=== PATIENT | female | born 1960 | race Caucasian/White ===

== ENCOUNTER 2018-06-21 08:00 | Outpatient (RCR) | payer OTHER, SELFPAY ==
--- NOTE | 2018-06-08 09:42 | IE_ITS ---
Date: June 08, 2018 Referring: Camelia Crockett NP M.D. Diagnosis: R hip pain P.T. Diagnosis: Difficulty walking, difficulty changing positions, difficulty moving around SUBJECTIVE: History of Present Illness: Pt describes herself as a [employer] company employee.She spends alot of time in her car or sitting at a desk. She states that in the earlier part of this year she started developing some R hip discomfort. She would feel it any time she would hike or, at times, even after a short walk.She started to feel similar sensations through the L hip. It is usually in the front and off to the side. She does not recall any back pain. She states that her pain calms down relatively quick. She has tried yoga and stretching. She is fairly active with skiing, hiking and mountain biking. Occasionally, her feet hurt. Pain Ratin/10. Pain at worst 6/10. Prior Level of Function: Unrestricted. Current Level of Function: Walking limitations and pain after activity, particularly at the R hip. Previous Treatment: Nothing yet for this issue. Social: She lives in [place] with her partner. Comorbidities: History of migraines. Medications: Multi-vitamins and Aleve. Quality of Life: __X__ Good Standardized Measures: LEFS score: __5%__ OBJECTIVE: Posture: In standing pt demonstrates a mild forward head position. No significant postural abnormality other than that worthy of note. Gait: Unremarkable.e No evidence of severe antalgia or ataxia, but a mild reduction in hip extension through the terminal phase of gait bilaterally. Palpation: Slightly tender to palpation along the posterior surface of the greater trochanter and over the anterior superior iliac spine bilaterally. An SFMA top tier assessment was completed. Notable dysfunctional non-painful patterns at cervical spine extension, multi-segmental extension of the trunk, arms down deep squat. ROM: Measurements for this pt are as follows: Cervical extension 50% of available motion with stiffness Cervical rotation limited to 50% of available motion bilaterally with stiffness Cervical flexion 75% of available motion with stiffness Multi-segmental trunk flexion WNL but most motion occurring through the anterior hip Multi-segment extension limited to 50% of available motion Thoracic spine extension and rotation as measured by the lumbar lock test she is limited at about 50% of motion passively Hip flexion 110 degrees motion bilaterally Hip ER 45 degrees bilaterally Hip IR 40 degrees bilaterally Hip abduction 45 degrees bilaterally Knee 0 degrees extension and 135 degrees flexion Ankle ROM WNL Strength: Measurements for this pt are as follows: Core strength 4/5 Hip flexion 4+/5 bilaterally Quads 5/5 Hamstrings 5/5 Dorsiflexion 5/5 Plantar flexion 5/5 Glute medius 4-/5 Glute juan 4/5 bilaterally Neuro: Pt intact to light touch and sensation through LE dermatomes. Motor control appears intact through associated myotomes and pt demonstrates appropriate proprioception and kinesthetic awareness. Special Tests: Josue testing mildly position R and also mildly positive L. Hip scour and hip grind testing negative. Straight leg raise mildly limited by hamstring extensibility. Calf musculature extensibility test limited at the gastroc as testing dorsiflexion with the knee extended and not coming within 10 degrees of terminal dorsiflexion with the knee flexed; this occurs bilaterally. Positive Alin test bilaterally. Treatment: IE and assessment of functional mobility, as well as training in a formal exercise program. Pt demonstrated verbal acknowledgment and technique demonstration. IE: [id number] Direct treatment time: 60 min Total treatment time: 60 min ASSESSMENT: Patient is a 58-year-old female with a history of good physical health, referred for PT services with the diagnosis of R hip pain. Patient presents with clinical signs and symptoms consistent with multi-segmental mobility deficits through the LEs, originating through the hip and anterior chain musculature and stability motor control deficits through the lateral hip musculature, as demonstrated by the following impairment level findings: decreased gluteal strength both laterally and through the glute max, positive Alin test, positive calf muscle extensibility, decreased core strength. Impairments are contributing to the following functional limitations:mild pain with activity and limited walking distance due to pain. Patient is assessed as: __X__ Low 09065 complexity, based on the following: History: (list): Migraines. Examination: (list): Mildly positive Josue test, strength deficits through the gluteals, extensibility issues through the anterior chain with a positive Alin test, positive tightness through the gastroc and calf musculature. Presentation: X Stable Decision-Making: X Low complexity 5 % Disability based on LEFS __X__ Patient requires skilled PT intervention to remediate the above functional limitations to return to: __X__ Premorbid level of function Prognosis: __X__ Good as evidence suggests improvement of functional mobilities with compliance to a detailed HEP tailored to her diagnosis and following through with PT intervention. STG: __2__ weeks. 1. Pt will be independent in HEP both verbally and with ideal technique demonstration. LTG: __6__ weeks. 1. Pt unlimited in her walking up to 2 miles within 25 min of time and no evidence of pain. PLAN: Patient to be seen 1 x per week, for 6 weeks, adjusting frequency of visits per patient symptoms and response to treatment. Treatment to include: X Manual therapy - [id number]: for enhancing muscle extensibility and improving joint arthrokinematics. X Therapeutic exercise - [id number] tactile cues, verbal education and advanced movement correctives for establishing stability and motor control through the core and pelvic girdle, influencing greater symmetry through the muscle strength and stabilization process. X Ultrasound and e-stim available for pain modulation as necessary. The pt will be monitored for compliance to HEP and pt status will be updated accordingly. Thank you for this referral. Please do not hesitate to contact me with any questions or concerns regarding this patient's plan of care. VJ/jina
--- NOTE | 2018-06-21 09:53 | PTTR_ITS ---
DATE: 06/21/18 SUBJECTIVE: I am doing okay for the most part. The issue is still there. OBJECTIVE: Therapeutic procedures ([id number]). * X HEP review: Technique review and corrective modification. * X Provided skilled instruction in proper exercise performance: [] * X Provided skilled manual cues to facilitate proper muscle recruitment and/ or movement pattern: [] * X Other: Patient was guided through intrinsic core stabilization with lower extremity loading patterns. Direct treatment time: 15 minutes of direct patient care.
== END 2018-06-30 23:59 | disposition home or self-care (01) ==
LOC: PT 08:00
PROVIDERS: PCP Nurse Practitioner Family; Referring Provider Nurse Practitioner; Visit Provider Nurse Practitioner
DX: M25.551 Pain in right hip (principal)
CPT/HCPCS: 97110; 97161

== ENCOUNTER 2018-08-03 00:25 | Outpatient (CLI) | payer OTHER, SELFPAY ==
--- NOTE | 2018-08-03 09:55 | DI.MAMMO_ITS ---
SYMPTOM/DIAGNOSIS: SCREENING, Z12.31 MAMMOGRAMS: Mammograms were interpreted according to the usual protocol including computer analysis with CAD system, tomosynthesis and C view imaging. Comparison with prior examinations. Breast density C. No masses or microcalcifications are seen. There is nothing to suggest malignancy. IMPRESSION: Negative mammogram. Routine screening is recommended. Category I. MQSA ASSESSMENT OF FINDINGS: Negative. Category 1. Patient will receive a letter notifying them of these results. Bi-RADS category C. The breasts are heterogeneously dense, which may obscure small masses.
== END 2018-08-03 00:45 ==
PROVIDERS: PCP Nurse Practitioner Family; Visit Provider Nurse Practitioner
DX: Z12.31 Encounter for screening mammogram for malignant neoplasm of breast (principal)
CPT/HCPCS: 77063; 77067

== ENCOUNTER 2019-09-17 01:41 | Outpatient (CLI) | payer OTHER, SELFPAY ==
--- NOTE | 2019-09-17 15:23 | DI.MAMMO_ITS ---
EXAM: MG MAMMO SCREENING CLINICAL HISTORY: screening TECHNIQUE: Mammograms were interpreted according to the usual protocol including computer analysis w [employer] CAD system, tomosynthesis and C-view imaging. COMPARISON: [id number] FINDINGS: The breasts are composed of heterogeneously dense tissue, which may obscure small masses, breast dens ity category C. There are no dominant masses or microcalcifications. There has been no significant i nterval change when compared with the prior images. IMPRESSION: Category 1, negative mammogram. Yearly screening mammography is recommended. BI-RADS Cat 1 - Negative Breast Density - Category C - Heterogeneously dense
== END 2019-09-17 02:01 ==
PROVIDERS: PCP Nurse Practitioner; Visit Provider Nurse Practitioner Family
DX: Z12.31 Encounter for screening mammogram for malignant neoplasm of breast (principal)
CPT/HCPCS: 77063; 77067

== ENCOUNTER 2020-08-11 14:22 | Outpatient (REF) | payer BC, SELFPAY ==
--- NOTE | 2020-08-11 14:00 | PAPFT_PTH ---
PATIENT: Ilana Lund LOC: [facility] U#:[id number] AGE/SX: 60/F ROOM: RE08/11/[address]: CHANEL Bailey : 1960 BED: DIS: 08/11/2020 SPEC #: [id number] RECD: 08/11/20 18:36 STATUS: FELIPE REQ #: [id number] DANICA: 08/11/20 14:[address]: Lashell Irvin DEPT: [facility] Cytology RECD BY: Leti Dunn ENTERED: 08/11/20 18:36 SP TYPE: PAPFT OTHR DR: Camelia Crockett APRN Tissues: 1 - CX/ENDOCX FOR PAP SMEARS Procedures: PAP THIN PREP/UVM Screening HPV DNA PROBE Comments: [id number]
== END 2020-08-11 14:42 ==
LOC: LBN 14:22
PROVIDERS: PCP Nurse Practitioner; Visit Provider Nurse Practitioner Family
DX: Z12.4 Encounter for screening for malignant neoplasm of cervix (principal)
CPT/HCPCS: 88142; 87624

== ENCOUNTER 2021-09-07 00:27 | Outpatient (CLI) | payer BC, SELFPAY ==
--- NOTE | 2021-09-07 12:00 | DI.MAMMO_ITS ---
Exam(s) MAMMO SCREENING EXAM: MAMMO SCREENING CLINICAL HISTORY: screening TECHNIQUE: Bilateral full field digital CC and MLO mammographic images were obtained with 3D tomosyn thesis and utilizing computer aided detection (CAD). COMPARISON: Available for comparison. FINDINGS: Masses/Architectural Distortion: There is a question of new ovoid density in the upper posterior left breast seen on the mediolateral oblique view. Microcalcifications: No suspicious pleomorphic-type are seen. Skin Thickening/Nipple Retraction: None. IMPRESSION: 1. New ovoid density in the posterior superior left breast on the MLO view. 2. Further evaluation with a spot compression view and left breast ultrasound are recommended. BI-RADS Category 0 - Assessment Incomplete: Need additional imaging evaluation Breast Density - Category C - Heterogeneously dense Breast density category C or D implies that the patient has dense breast tissue. Dense breast tissue is very common and is not abnormal but dense breast tissue can make it harder to find cancer on a ma mmogram. Also, dense breast tissue may increase their breast cancer risk. This information about the result of the mammogram report was provided to the patient to raise their awareness. Use this report when you speak with the patient about their risks for breast cancer, which includes their family hist ory. At that time, you may recommend for more screening tests (Ultrasound or MRI) as they might be us eful based on their risk. A negative radiographic report should not delay biopsy if a dominant or clinically suspicious mass is present. Up to ten percent of cancers are not identified on mammography. A negative report may reinforce clinical impression. Adenosis and dense breasts may obscure an underlying neoplasm. False positive reports average 6 to 10%. Patient will receive a letter notifying them of these results.
== END 2021-09-07 00:47 ==
PROVIDERS: PCP Nurse Practitioner; Visit Provider Nurse Practitioner Family
DX: Z12.31 Encounter for screening mammogram for malignant neoplasm of breast (principal); R92.8 Other abnormal and inconclusive findings on diagnostic imaging of breast
CPT/HCPCS: 77063; 77067

== ENCOUNTER 2021-10-06 00:30 | Outpatient (CLI) | payer BC, SELFPAY ==
--- NOTE | 2021-10-06 10:42 | DI.MAMMO_ITS ---
Exam(s) MG MAMMO SCREEN CALL BACK UNI US BREAST LT LIMITED EXAM: MG MAMMO SCREEN CALL BACK UNI and U/S breast LT limited CLINICAL HISTORY: F/U MAMMO, NEW OVOID DENSITY POSTERIOR SUPERIOR LT BREAST. TECHNIQUE: Craniocaudal and mediolateral oblique Full Field Digital Mammography views of the left br east with Computer Aided Diagnosis followed by Tomosynthesis and left breast ultrasound. COMPARISON: Priors available for comparison. FINDINGS: Mammography/Tomosynthesis: Masses/Architectural Distortion: The nodular area of concern does not persist on the additional views . Microcalcifictions: No suspicious pleomorphic-type are seen. Skin Thickening/Nipple Retraction: None. Left breast US: The upper inner and upper outer quadrants of the left breast were evaluated sonograph ically. Echotexture: Normal appearance of the glandular tissue. The 2 o'clock position of the left breast wa s evaluated sonographically with the radiologist present. The area of concern is consistent with nor mal fibroglandular tissue. Shadowing: No suspicious foci. Cyst: None. Solid lesions: None seen. Ductal dilation: None. IMPRESSION: 1. No evidence of malignancy is noted. 2. Unless there is more urgent need, follow-up screening mammography is recommended, as per [place] [employer] guidelines. 3. The findings were discussed with the patient on the date of the examination. BI-RADS Category 1 - Negative Breast Density - Category C - Heterogeneously dense Breast density Category C or D implies that the patient has dense breast tissue. Dense breast tissue can make it harder to find cancer on a mammogram. Dense breast tissue is also associated with an incr eased risk of breast cancer. This information about the result of the mammogram report was provided to the patient to raise their awareness. Use this report when you speak with the patient about their risks for breast cancer, which includes their family history. At that time, you may recommend additional screening tests (Ultrasoun d or MRI) as these tests may add significant information. A negative radiographic report should not delay biopsy if a dominant or clinically suspicious mass is present. Up to ten percent of cancers are not identified on mammography. A negative report may reinforce clinical impression. Adenosis and dense breasts may obscure an underlying neoplasm. False positive reports average 6 to 10%. Patient will receive a letter notifying them of these results.
== END 2021-10-06 00:50 ==
PROVIDERS: PCP Nurse Practitioner; Visit Provider Nurse Practitioner Family
DX: R92.8 Other abnormal and inconclusive findings on diagnostic imaging of breast (principal)
CPT/HCPCS: 76642; 77063; 77067

== ENCOUNTER 2021-10-22 10:53 | Outpatient (REF) | payer BC, SELFPAY ==
[2021-10-22 13:44] LABS: C Diff PCR Negative (Negative)
[2021-10-23 11:41] LABS: Campylobacter PCR Negative (Negative); Salmonella PCR Negative (Negative); Shiga Toxin PCR Negative (Negative); Shigella/Enteroinvasive Ecoli Negative (Negative)
== END 2021-10-22 10:54 | disposition home or self-care (01) ==
LOC: LBN 10:53
PROVIDERS: PCP Nurse Practitioner; Visit Provider Nurse Practitioner
DX: R19.7 Diarrhea, unspecified (principal)
CPT/HCPCS: 87493; 87505; 87177

== ENCOUNTER 2021-10-30 01:06 | Observation (INO) | payer BC, SELFPAY ==
[2021-10-30] VITALS (25 sets, daily range): BP systolic 100–139; BP diastolic 63–78; PULSE 60–81; RESP 14–18; TEMP 36.8–38.1; O2SAT 94–100; BMI 26.9
--- NOTE | 2021-10-30 01:30 | DI.CT_ITS ---
Exam(s) CT ABDOMEN PELVIS W EXAM: CT ABDOMEN PELVIS W INDICATION: diarrhea, abdominal pain, bloody diarrhea. COMPARISON: No exams were available for comparison TECHNIQUE: FINDINGS: CT examination of the abdomen and pelvis was performed with a bolus infusion of 100 cc of Omnipaque 3 50. Images obtained through the lung bases are unremarkable. The liver is unremarkable in appearance. Gallbladder and bile ducts are CT normal. Pancreas appears normal. Spleen is unremarkable in appearance. Adrenals appear normal. The kidneys are unremarkable with no evidence of hydronephrosis, nephrolithiasis, or renal mass.. Ur inary bladder unremarkable. Abdominal aorta is of normal diameter and no major vascular abnormality is seen. No abdominal wall hernia. No abdominal or pelvic adenopathy. [employer] structures appear intact. Appendix is not specifically identified but there is no evidence of appendicitis. There is no eviden ce of diverticulitis. Note is made of marked wall thickening of the distal transverse and descending colon consistent with colitis. No evidence of perforation or obstruction. Slight pericolonic fat e osmin may be present. IMPRESSION: The appearance is consistent with colitis involving distal transverse and descending colon. No other specific findings. RADIATION DOSE DELIVERED: 808.25mGy.cm Total DLP 808.25mGy.cm Total DLP CTDIvol RADIATION OPTIMIZATION: All CT scans at this facility use at least one of these dose optimization te chniques: automated exposure control; mA and/or kV adjustment per patient size (includes targeted exa ms where dose is matched to clinical indication); or iterative reconstruction.
[2021-10-30] MEDS: Normal Saline 1,000 ML 1000 ML IV (01:35)
[2021-10-30 01:36] LABS: Abs Immature Grans 0.03 10^3/uL (0.0-0.06); Absolute Basophil Count 0.04 10^3/uL (0.0-0.2); Absolute Eosinophil Count 0.21 10^3/uL (0.0-0.7); Absolute Lymphocyte Count 2.61 10^3/uL (1.2-3.4); Absolute Monocyte Count 0.55 10^3/uL (0.1-0.8); Absolute Neutrophil Count 8.26 10^3/uL (1.2-6.7); Basophils % 0.3; Eosinophils % 1.8; HCT 42.3 % (36.0-46.0); Immature Grans % 0.3; Lymphocytes % 22.3; MCH 31.3 pg (27.0-33.0); MCHC 33.1 % (32.0-36.0); MCV 94.6 fL (80-95); MPV 9.2 fL (8.0-11.0); Monocytes % 4.7; Neutrophils % 70.6; Nucleated RBC 0 %; Platelet Count 324 10^3/uL (130-400); RBC 4.47 10^6/uL (3.93-5.22); RDW-SD 45.3 fL
[2021-10-30 01:37] LABS: Lactate 0.9 mmol/L (0.6-1.4)
[2021-10-30] MEDS: Ondansetron 4 MG/2 ML VIAL (01:40)
[2021-10-30 01:51] LABS: Lipase 105 U/L (73-393)
--- NOTE | 2021-10-30 01:52 | W.ED.GENAD ---
Discharge Plan Disposition Patient Disposition: [facility] INPATIENT Condition: Improving Discharge Details Chief Complaint: Abd Prob Clinical Impression: Colitis, Hematochezia Primary Care Provider: Camelia Crockett ED Provider: Guero Meadows Home Meds and New Rx's Prescriptions: No Action cholecalciferol (vitamin D3) 10 mcg (400 unit) capsule 400 unit PO DAILY RF: 0 mhtacwjhyg-aqzoful-tuzgmuyz 50-325-40 mg capsule 1 cap PO DAILY PRN (Reason: pain) RF: 0 zinc 50 mg tablet 50 mg PO DAILY RF: 0 B-complex with vitamin C Tablet 1 tab PO DAILY RF: 0 estradiol 0.5 mg tablet 0.5 mg PO DAILY Qty: 90 RF: 3 progesterone micronized [Prometrium] 100 mg capsule 100 mg PO DAILY Qty: 90 RF: 3 magnesium citrate 100 mg tablet 400 mg PO HS RF: 0 naproxen sodium [Aleve] 220 mg capsule 220 mg PO PRN RF: 0 lorazepam 0.5 mg tablet 0.5 mg PO DAILY PRN PRN (Reason: anxiety for flights) RF: 0 Medical Decision Making 61-year-old female with a past medical history of myofascial pain syndrome, sinusitis, presents today for bloody diarrhea. Patient states that she has had consistent watery diarrhea for this entire month. Patient states that she will use fiber and other supplements and the most this does this transition the watery diarrhea to a pudding or milkshake-like consistency. She has had a notable outpatient work-up for stool studies which demonstrates negative Shiga toxin, negative ova and parasite, negative C. difficile, no significant abnormalities to speak of. She was scheduled to follow-up closely with her PCP coming week, however this evening she developed severe cramping much worse than anything she had had previously, and then subsequently had a notable amount of bright red bloody stool. She suspects it was about a quarter of a cup of blood in the toilet. She denies any history of this happening in the past. She does admit to having a family member with a history of Crohn's disease, but she denies any other personal history of GI problems in the past. Patient denies any spicy foods. She denies any blood thinner use. No other complaints at this time. Abdominal pain is described as achy and generalized throughout. She denies cough, fever or chills. Physical exam demonstrates mild tenderness throughout the abdomen, no focality physically. Rectal exam unremarkable. Differential at this time is highest for mild colitis. Infectious colitis would certainly be less likely given the notable work-up already in the longevity of her symptoms. Inflammatory colitis is certainly of concern though. We will get a CAT scan, rehydrate, treat her pain, monitor closely and reassess. 3:31 AM Laboratory work-up is returned stable, will notably elevated at 11.7, hemoglobin stable. Electrolytes normal lactate normal. Patient has not had a stool/bowel movement here. Lipase normal. Patient still has mild to moderate pain, but slightly improved with the morphine. CT scan shows evidence of colitis in the distal transverse colon. On further discussion the patient's history patient does admit to travel to the [facility] within the past month however this occurred over a week after when her symptoms began, additionally she also admits that her mother has had diarrhea for multiple months, with multiple negative work-ups, they are uncertain as to the etiology for what she has also. She did recently spend time with her mother the past few weeks. At this time with the amount of blood that the patient had with her previous bowel movement, and the evidence of colitis we will start her on Cipro/Flagyl out of concern for potential infectious component. I discussed the case with hospitalist , he agrees with the assessment and plan. I will place admission orders on his behalf. I have extensively reviewed the treatment plan with the patient. I have addressed all patient concerns at this time. I have also discussed the plan with the admitting physician and they agree with the current assessment and plan and have agreed to assume responsibility for the patient. All parties demonstrate verbal understanding and agreement with our assessment and plan at this time. The documentation in this chart was dictated using [employer] dictation software. Please excuse any dictation errors. FINDINGS: Liver: Normal. No mass. Gallbladder and bile ducts: Normal. No calcified stones. No ductal dilation. Pancreas: Normal. No ductal dilation. Spleen: Normal. No splenomegaly. Adrenal glands: Normal. No mass. Kidneys and ureters: Normal. No hydronephrosis. Stomach and bowel: Infectious or inflammatory colitis of the distal transverse colon. Appendix: No evidence of appendicitis. Intraperitoneal space: Unremarkable. No free air. No significant fluid collection. Vasculature: Unremarkable. No abdominal aortic aneurysm. Lymph nodes: Unremarkable. No enlarged lymph nodes. Urinary bladder: Unremarkable as visualized. Reproductive: Unremarkable as visualized. Bones/joints: Unremarkable. No acute fracture. Soft tissues: Unremarkable. IMPRESSION: Infectious or inflammatory colitis of the distal transverse colon. Thank you for allowing us to participate in the care of your patient. Dictated and Authenticated by: Monico Underwood MD 10/30/2021 2:54 AM Eastern Time ([place] & [place] HPI General Date/Time Provider Initiated Documentation: 10/30/21 01:09. HPI Narrative: 61-year-old female with a past medical history of myofascial pain syndrome, sinusitis, presents today for bloody diarrhea. Patient states that she has had consistent watery diarrhea for this entire month. Patient states that she will use fiber and other supplements and the most this does this transition the watery diarrhea to a pudding or milkshake-like consistency. She has had a notable outpatient work-up for stool studies which demonstrates negative Shiga toxin, negative ova and parasite, negative C. difficile, no significant abnormalities to speak of. She was scheduled to follow-up closely with her PCP coming week, however this evening she developed severe cramping much worse than anything she had had previously, and then subsequently had a notable amount of bright red bloody stool. She suspects it was about a quarter of a cup of blood in the toilet. She denies any history of this happening in the past. She does admit to having a family member with a history of Crohn's disease, but she denies any other personal history of GI problems in the past. Patient denies any spicy foods. She denies any blood thinner use. No other complaints at this time. Abdominal pain is described as achy and generalized throughout. She denies cough, fever or chills. Related Data Home Medications Medication Instructions Recorded Confirmed magnesium citrate 100 mg tablet 400 mg PO HS 01/04/19 10/30/21 naproxen sodium 220 mg capsule 220 mg PO PRN cap 06/25/19 10/30/21 B-complex with vitamin C 1 tab PO DAILY 08/13/21 10/30/21 tjwgszknup-qwtuyrb-ednnjupw 50 1 cap PO DAILY PRN tab-cap 08/13/21 10/30/21 mg-325 mg-40 mg capsule cholecalciferol (vitamin D3) 10 400 unit PO DAILY 08/13/21 10/30/21 mcg (400 unit) capsule estradiol 0.5 mg tablet 0.5 mg PO DAILY #90 tab 08/13/21 10/30/21 progesterone micronized 100 mg 100 mg PO DAILY #90 cap 08/13/21 10/30/21 capsule zinc 50 mg tablet 50 mg PO DAILY 08/13/21 10/30/21 lorazepam 0.5 mg PO DAILY PRN PRN 10/30/21 10/30/21 Previous Rx's Medication Instructions Recorded estradiol 0.5 mg tablet 0.5 mg PO DAILY #90 tab 08/13/21 progesterone micronized 100 mg 100 mg PO DAILY #90 cap 08/13/21 capsule Allergies Allergy/AdvReac Type Severity Reaction Status Date / Time No Known Drug Allergies Allergy Verified 10/30/21 01:50 General Stated Complaint: Abd Prob MIMI: 2 Review of Systems All systems reviewed & are unremarkable except as noted in HPI and below PFSH All Active Problems (Updated 10/30/21 @ 03:34 by Guero Meadows DO) Colitis (Acute) Hematochezia (Acute) Tinnitus, bilateral (Acute) Routine medical exam (Acute) Low back pain (Acute) Constipation (Acute) Sinusitis (Acute) Bilateral bunions (Chronic) Myofascial pain syndrome (Acute) B/L trapezius Headache, migraine (Acute) With menses (twice per month) & with aura (sparkly lights) Cervical spinal stenosis (Acute) Surgical History c-sections 2 Family History Father Substance abuse Alcoholism Osteoarthritis Sister Crohn's disease Half-Brother Substance abuse Alcoholism Mental disorder Depression Maternal Grandfather Substance abuse Alcoholism CAD (coronary artery disease) Maternal Grandmother Neoplasm Liver Mother No problems noted. Half-Brother No problems noted. 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 [employer] What is your relationship status?: living with partner Panel score (0-1 are the most socially isolated patients): 1 What type of physical activity do you participate in: regular exercise Duration: 45-60 minutes/day Frequency: 3-4 times per week Seatbelt use: always Working smoke detector in home: Yes Fire extinguisher in home: Yes Carbon monox detector in home: Yes Do you feel safe at home: Yes Do you feel safe in your relationship?: Yes History History 2 Para Hx # Term Pregnancies 2 Multiple births Hx # Pregnancies Ectopic pregnancies AB induced Hx Number of Living Children AB spontaneous Exam Narrative Exam Narrative: 1.Const: Well-nourished, Well-developed, appearing stated age 2.Eyes: PERRL, no conjunctival injection, and symmetrical lids. 3.ENT: Atraumatic external nose and ears. Moist MM. Neck: Symmetric, trachea midline, No thyromegaly. 4.CVS: +S1/S2, No murmurs or gallops. Peripheral pulses 2+ and equal in all extremities. Brisk capillary refill in all extremities. 5.RESP: Unlabored respiratory effort. Clear to auscultation bilaterally. No wheezes rales or rhonchi 6.GI: Soft, nondistended, no guarding or rebound. Mild generalized tenderness throughout with no focality. Rectal exam demonstrates a few small skin tags and hemorrhoids, no active bleeding hemorrhoids. Exam was performed with female nurse Selene at bedside. 7.MSK: Normocephalic/Atraumatic, Extremities w/o deformity or ttp No cyanosis or clubbing, Normal movement of all extremities 8.Skin: Warm, Dry. No rashes or lesions. 9.Neuro: disability counselor II-XII grossly intact. Sensation grossly intact, no focal neurologic deficits. 10.Psych: (AAO) x3. Appropriate mood and affect Course Vital Signs Vital signs: Vital Signs Temperature 37.3 C 10/30/21 01:12 Pulse 64 10/30/21 01:12 Respiratory Rate 18 10/30/21 01:12 Blood Pressure 139/78 10/30/21 01:12 Pulse Oximetry 100 10/30/21 01:12 Temperature 37.3 C 10/30/21 01:12 Temperature Source Skin 10/30/21 01:12 Pulse 66 10/30/21 01:48 Respiratory Rate 14 10/30/21 01:48 Blood Pressure 121/73 10/30/21 01:48 Blood Pressure Position Supine 10/30/21 01:12 Pulse Oximetry 99 10/30/21 01:48 Oxygen Delivery Method Room Air 10/30/21 01:48 Oxygen Flow Rate 0 10/30/21 01:48 Pain Level 8 10/30/21 01:48 Lab/Test Results Lab/Test Results: Laboratory Tests Range/Units 10/30/21 10/30/21 01:30 01:30 WBC (4.4-10.8) 10^3/uL 11.70 H RBC (3.93-5.22) 10^6/uL 4.47 Hgb (11.2-15.7) g/dL 14.0 Hct (36.0-46.0) % 42.3 MCV (80-95) fL 94.6 MCH (27.0-33.0) pg 31.3 MCHC (32.0-36.0) % 33.1 RDW (11.7-14.6) % 13.0 Plt Count (130-400) 10^3/uL 324 MPV (8.0-11.0) fL 9.2 Immature Gran % 0.3 Neutrophils % 70.6 Lymphocytes % 22.3 Monocytes % 4.7 Eosinophils % 1.8 Basophils % 0.3 Nucleated RBC % % 0 Absolute Neutrophils (1.2-6.7) 10^3/uL 8.26 H Absolute Lymphocytes (1.2-3.4) 10^3/uL 2.61 Absolute Monocytes (0.1-0.8) 10^3/uL 0.55 Absolute Eosinophils (0.0-0.7) 10^3/uL 0.21 Absolute Basophils (0.0-0.2) 10^3/uL 0.04 VBG Lactate (0.6-1.4) mmol/L 0.9
[2021-10-30 01:56] LABS: ALT 31 U/L (14-59); AST 19 U/L (15-37); Albumin 3.7 g/dL (3.4-5.0); Alkaline Phosphatase 62 U/L (46-116); Anion Gap 7.5 mmol/L (3-11); BUN 15 mg/dL (7-18); Bilirubin, Total 0.2 mg/dL (0.2-1.0); CO2 30.5 mmol/L (21.0-32.0); CREATININE 0.8 mg/dL (0.55-1.02); Calcium 9.1 mg/dL (8.5-10.1); Chloride 103 mmol/L (98-107); Glucose 118 mg/dL (74-106); PTT Activated 20.7 sec (21.0-27.5); Potassium 3.8 mmol/L (3.5-5.1); Prothrombin Time 9.9 sec (9.3-11.0); Sodium 141 mmol/L (136-145); Total Protein 7.9 g/dL (6.4-8.2)
[2021-10-30] MEDS: Omnipaque 350 MG/ML 100 ML BTL IJ (02:18)
--- NOTE | 2021-10-30 02:55 | DI.VRAD_ITS ---
PROCEDURE INFORMATION: Exam: CT Abdomen And Pelvis With Contrast Exam date and time: 10/30/2021 1:35 AM Age: 61 years old Clinical indication: Other: Diarrhea, abdominal pain, bloody diarrhea TECHNIQUE: Imaging protocol: Computed tomography of the abdomen and pelvis with contrast. COMPARISON: No relevant prior studies available. FINDINGS: Liver: Normal. No mass. Gallbladder and bile ducts: Normal. No calcified stones. No ductal dilation. Pancreas: Normal. No ductal dilation. Spleen: Normal. No splenomegaly. Adrenal glands: Normal. No mass. Kidneys and ureters: Normal. No hydronephrosis. Stomach and bowel: Infectious or inflammatory colitis of the distal transverse colon. Appendix: No evidence of appendicitis. Intraperitoneal space: Unremarkable. No free air. No significant fluid collection. Vasculature: Unremarkable. No abdominal aortic aneurysm. Lymph nodes: Unremarkable. No enlarged lymph nodes. Urinary bladder: Unremarkable as visualized. Reproductive: Unremarkable as visualized. Bones/joints: Unremarkable. No acute fracture. Soft tissues: Unremarkable. IMPRESSION: Infectious or inflammatory colitis of the distal transverse colon. Dictated and Authenticated by: Monico Underwood MD. Ordering:ALEXANDR Jack MD
[2021-10-30 03:42] LABS: Source Nasal/Nares
[2021-10-30] MEDS: CIPROFLOXACIN 400 MG/200 ML BAG 200 MG IVPB ×2 (03:42→15:38)
[2021-10-30] MEDS: Normal Saline 1,000 ML 150 ML IV (04:55)
[2021-10-30] MEDS: metroNIDAZOLE 500 MG/100 ML BAG 100 MG IVPB ×3 (04:58→21:30)
--- NOTE | 2021-10-30 08:34 | PDOC.CMIN ---
- If Service Date Differs Date of service: 10/30/21 Time of Service: 08:34 Care Management Initial Assess REASON FOR HOSPITALIZATION:: Colitis PAST MEDICAL HISTORY/PAST SURGICAL HISTORY:: All Active Problems (Updated 10/30/21 @ 03:34 by Guero Meadows DO). Colitis (Acute). Hematochezia (Acute). Tinnitus, bilateral (Acute). Routine medical exam (Acute). Low back pain (Acute). Constipation (Acute). Sinusitis (Acute). Bilateral bunions (Chronic). Myofascial pain syndrome (Acute). B/L trapezius. Headache, migraine (Acute). With menses (twice per month) & with aura (sparkly lights). Cervical spinal stenosis (Acute). Surgical History . c-sections 2 PREVIOUS FUNCTIONAL STATUS/SOCIAL/FAMILY SUPPORTS:: Ilana lives in [place] with her long time partner Eladio. She has 2 children, a son who lives in [place] and a daughter who lives on the [facility]. 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 She is currently working on memoirs and personal essays. Ilana is very active and hikes, bikes, skis and does personal training via Zoom several times a week. She does not receive any community services. CURRENT FUNCTIONAL STATUS:: Ilana wass lying in bed when CM met with her. She was pleasant and agreeable to conversation but was not very talkative. She admitted that she was not feeling well as she had a headache and had not had much sleep. Ilana does not feel that she will need any services at discharge. ADVANCE DIRECTIVES:: none on file Has patient been provided with info about the portal/API?: Yes Did the patient sign up for the portal?: Yes (previously) CODE STATUS:: Full Code INSURANCE COVERAGE / FINANCIAL ISSUES:: DOMONIQUE OSORIO CURRENT HOME/COMMUNITY SERVICES/EQUIPMENT:: none PRIMARY CARE PHYSICIAN:: Camelia Crockett POTENTIAL DISCHARGE NEEDS:: Follow up with PCP and plan of care PATIENT/FAMILY EDUCATION NEEDS:: Review of discharge instructions, limitations, diet, medications, follow up plan, Ask Me Three TRANSPORTATION:: via private vehicle with friends/family PLAN:: Ilana will ld be discharged home with no new services. She will follow up with her PCP and plan of care and transport with family. CM will support Ilana and her discharge needs.
--- NOTE | 2021-10-30 10:32 | HPE_ITS ---
Date of service: 10/30/21 Time of Service: 10:32 Assessment and Plan Assessment and plan (1) Colitis: Status: Acute Assessment and plan: High suspicion for inflammatory bowel disease given the duration of her diarrhea and recent negative stool work-up for infectious causes. For now we will continue with IV Flagyl and ciprofloxacin IV fluids and antiemetics and keep her n.p.o. and consult with surgical services regarding performing a colonoscopy to obtain a biopsy. (2) Hematochezia: Status: Acute Assessment and plan: As above History of Present Illness History of Present Illness Chief Complaint: Diarrhea, abdominal pain, bloody bowel movement Narrative: 61-year-old female with past medical history of migraine headaches, cervical spinal stenosis, no previous GI problems presented to emergency department with 1 month history of watery diarrhea. Says she will have up to 6 bowel movements a day stools will be watery with some chunks of stool. She has been trying fiber and other supplements to thicken her bowel movements and at times after taking Imodium stools will thicken up to a pudding consistency. She has not noticed any melena nor any hematochezia until yesterday evening. Started with crampy abdominal pain yesterday with radiation into her back and lower abdomen has had nausea but no emesis. She has had waterbrash symptoms. Yesterday evening she had a bowel movement with bright red blood and a watery diarrhea. She has had no high fevers she thought the last few days she has had a low-grade temperature 99-100 but without rigors. She and her partner did travel out of the country to the [facility] to [place] from October 10 through October 20, 2021 however her diarrhea had preceded this. Her partner has had no diarrhea symptoms. Her past history is pertinent for previous C-scope 10 years ago which was reportedly normal. Her family history is pertinent for Crohn's disease in her half-sister. Patient's mother whom she shares with her half-sister has also had some stomach and bowel issues over the years but never had a work-up for inflammatory bowel disease. Patient herself is a non-smoker does drink 2 to 4 glasses of wine or beer per day. No history of alcohol withdrawal. Patient had a recent infectious work-up as an outpatient on October 22, 2021 that includes stool studies for C. difficile as well as bacterial pathogens including Campylobacter Salmonella and Shigella as well as stool for ova and par asites. These were all negative. Evaluation in the ER last night include a CBC that showed an elevated white count of 11,700 but no anemia. CMP was unremarkable except for a mildly elevated glucose of 118. Lipase was normal at 105. CRP and procalcitonin were not performed but have been added to this morning's labs. Coagulation studies were normal. Blood lactate was normal at 0.9. Imaging included CT scan of the abdomen pelvis which demonstrated suggestion of infectious or inflammatory colitis of the distal transverse colon but no evidence for appendicitis. Gallbladder and bile ducts were normal. Pancreas and spleen and adrenal glands and kidneys were also normal. Patient was started on IV fluids and started on ciprofloxacin and Flagyl and repeat stool studies for infectious etiology were ordered. Patient is now admitted for further work-up of her transverse colitis. Surgical consultation will be obtained for consideration for colonoscopy to rule out inflammatory bowel disease. Review of Systems All systems reviewed & are unremarkable except as noted in HPI and below Gastrointestinal Gastrointestinal: Reports abdominal pain, Denies melena, Reports hematochezia, Reports cramping, Reports early satiety, Reports diarrhea and Reports nausea PFSH All Active Problems (Updated 10/30/21 @ 11:14 by Ismael Coello) Colitis (Acute) Hematochezia (Acute) Tinnitus, bilateral (Acute) Myofascial pain syndrome (Acute) B/L trapezius Headache, migraine (Acute) With menses (twice per month) & with aura (sparkly lights) Cervical spinal stenosis (Acute) Medical History (Updated 10/30/21 @ 11:14 by Ismael Coello) Bilateral bunions Constipation Low back pain Sinusitis Surgical History c-sections 2 Family History Father Substance abuse Alcoholism Osteoarthritis Sister Crohn's disease Half-Brother Substance abuse Alcoholism Mental disorder Depression Maternal Grandfather Substance abuse Alcoholism CAD (coronary artery disease) Maternal Grandmother Neoplasm Liver Mother No problems noted. Half-Brother No problems noted. 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 [employer] What is your relationship status?: living with partner Panel score (0-1 are the most socially isolated patients): 1 What type of physical activity do you participate in: regular exercise Duration: 45-60 minutes/day Frequency: 3-4 times per week Seatbelt use: always Working smoke detector in home: Yes Fire extinguisher in home: Yes Carbon monox detector in home: Yes Do you feel safe at home: Yes Do you feel safe in your relationship?: Yes History History 2 Para Hx # Term Pregnancies 2 Multiple births Hx # Pregnancies Ectopic pregnancies AB induced Hx Number of Living Children AB spontaneous Meds Allergies and Home Medications Allergies Allergy/AdvReac Type Severity Reaction Status Date / Time No Known Drug Allergies Allergy Verified 10/30/21 01:50 Home Medications Medication Instructions Recorded Confirmed Type magnesium citrate 100 mg tablet 400 mg PO HS 01/04/19 10/30/21 History naproxen sodium 220 mg capsule 220 mg PO PRN cap 06/25/19 10/30/21 History B-complex with vitamin C 1 tab PO DAILY 08/13/21 10/30/21 History vozubxbghc-[id number]-[id number] 50 1 cap PO DAILY PRN tab-cap 08/13/21 10/30/21 History mg-325 mg-40 mg capsule cholecalciferol (vitamin D3) 10 400 unit PO DAILY 08/13/21 10/30/21 History mcg (400 unit) capsule estradiol 0.5 mg tablet 0.5 mg PO DAILY #90 tab 08/13/21 10/30/21 Rx progesterone micronized 100 mg 100 mg PO DAILY #90 cap 08/13/21 10/30/21 Rx capsule zinc 50 mg tablet 50 mg PO DAILY 08/13/21 10/30/21 History lorazepam 0.5 mg PO DAILY PRN PRN 10/30/21 10/30/21 History Exam Narrative Exam Narrative: Middle-aged white female lying in bed appears to be uncomfortable but not in any distress. HEENT is remarkable for dry mucous membranes. Neck supple nontender no JVD normal carotid pulses no bruits no thyromegaly Lungs are clear to auscultation Heart is regular rate and rhythm without murmur rub or gallop Abdomen slightly distended with active bowel sounds in all 4 quadrants with epigastric tenderness along with rebound tenderness and guarding. No palpable masses no organomegaly Extremities without peripheral cyanosis or edema Neuro exam grossly intact no focal motor or sensory deficits. Rectal urinary exam deferred Results Labs Result diagrams: 10/30/21 01:30 10/30/21 01:30 Labs: Laboratory Results - last 24 hr 10/30/21 10/30/21 10/30/21 01:30 01:30 01:30 WBC 11.70 H RBC 4.47 Hgb 14.0 Hct 42.3 MCV 94.6 MCH 31.3 MCHC 33.1 RDW 13.0 Plt Count 324 MPV 9.2 Immature Gran % 0.3 Neutrophils % 70.6 Lymphocytes % 22.3 Monocytes % 4.7 Eosinophils % 1.8 Basophils % 0.3 Nucleated RBC % 0 Absolute Neutrophils 8.26 H Absolute Lymphocytes 2.61 Absolute Monocytes 0.55 Absolute Eosinophils 0.21 Absolute Basophils 0.04 PT INR APTT VBG Lactate 0.9 Sodium 141 Potassium 3.8 Chloride 103 Carbon Dioxide 30.5 Anion Gap 7.5 BUN 15 Creatinine 0.8 Estimated GFR/1.73 m2 >= 60.00 Glucose 118 H Calcium 9.1 Total Bilirubin 0.2 AST 19 ALT 31 Alkaline Phosphatase 62 Total Protein 7.9 Albumin 3.7 Lipase COVID-19 Source 10/30/21 10/30/21 10/30/21 01:30 01:30 03:40 WBC RBC Hgb Hct MCV MCH MCHC RDW Plt Count MPV Immature Gran % Neutrophils % Lymphocytes % Monocytes % Eosinophils % Basophils % Nucleated RBC % Absolute Neutrophils Absolute Lymphocytes Absolute Monocytes Absolute Eosinophils Absolute Basophils PT 9.9 INR 1.0 APTT 20.7 L VBG Lactate Sodium Potassium Chloride Carbon Dioxide Anion Gap BUN Creatinine Estimated GFR/1.73 m2 Glucose Calcium Total Bilirubin AST ALT Alkaline Phosphatase Total Protein Albumin Lipase 105 COVID-19 Source Nasal/Nares Last Vital Signs Temp 36.8 C 10/30/21 09:02 Pulse 70 10/30/21 09:02 Resp 16 10/30/21 09:02 BP 100/63 10/30/21 09:02 Pulse Ox 96 10/30/21 09:02
[2021-10-30] MEDS: Lactated Ringers 1,000 ML 150 ML IV ×2 (11:32→20:15)
[2021-10-30 12:20] LABS: C-Reactive Protein 2.11 mg/dL (0.0-0.3)
--- NOTE | 2021-10-30 12:51 | W.SURGCON ---
Date of service: 10/30/21 Time of Service: 12:52 Assessment and Plan Assessment and plan (1) Colitis: Status: Acute (2) Hematochezia: Status: Acute Assessment and plan: -cultures pd CRP ~2 family hx of Crohn's -Antibiotic started. She does not feel much better. pt needs bx for tissue confirmation results of CT reviewed IMPRESSION: Infectious or inflammatory colitis of the distal transverse colon. Informed consent is obtained for the procedural (explained in simple layman's terms that the pt and/or family could understand) explaining risks vs benefits and alternatives to the procedure and consequences if we do not do the procedure and need/rational for the procedure. Risks include but are not limited to: bleeding, infection, perforation of esophagus, stomach, colon, small intestines, bronchus or trachea, or PTX. This would necessitate emergency surgery to repair the damage w/ possible ostomy; and other associated complications w/ the required surgery. Also complications of anesthesia including aspiration, DE/CVA/. Plan on prep colonoscopy and biopsy today. 60 minutes spent with patient today in consultation History of Present Illness Narrative: I did review and discussed with Dr. Salvador. In summary the patient had diarrhea and abdominal pain pretty much continuously since . She has never had anything like this before. Yesterday the pain became unbearable, and she is also started having bright red bloody stools. CT and lab reviewed. She also had a work-up by her PCP including a which was negative-including stool cultures and C. difficile. She was out of the country in the [place] for the third week in September. Her symptoms started after and continued while she was on vacation. She was using Imodium, fiber, probiotics to be able to enjoy her vacation. She has chronic neck pain and migraine headaches. Interestingly she did take a Medrol Dosepak the second week in September. This did not prove her symptoms. Prior to the past August she has never had anything like this before. She did have a colonoscopy at age 52 that was normal. Her mother has a nervous stomach and chronic GI problems including diarrhea. Her sister does have a diagnosis of Crohn's. Results of CT reviewed. She describes the pain in the upper abdomen. Appears to be over the course of the transverse colon. She has not noted any rashes or joint pains. Her neck is not been worse than usual. Has never been diagnosed with RA or . Consults Consult date: 10/30/21 Requesting physician: Ismael Coello Review of Systems All systems reviewed & are unremarkable except as noted in HPI and below PFSH All Active Problems Colitis (Acute) Hematochezia (Acute) Tinnitus, bilateral (Acute) Myofascial pain syndrome (Acute) B/L trapezius Headache, migraine (Acute) With menses (twice per month) & with aura (sparkly lights) Cervical spinal stenosis (Acute) Medical History Bilateral bunions Constipation Low back pain Sinusitis Surgical History c-sections 2 Family History Father Substance abuse Alcoholism Osteoarthritis Sister Crohn's disease Half-Brother Substance abuse Alcoholism Mental disorder Depression Maternal Grandfather Substance abuse Alcoholism CAD (coronary artery disease) Maternal Grandmother Neoplasm Liver Mother No problems noted. Half-Brother No problems noted. 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 [employer] What is your relationship status?: living with partner Panel score (0-1 are the most socially isolated patients): 1 What type of physical activity do you participate in: regular exercise Duration: 45-60 minutes/day Frequency: 3-4 times per week Seatbelt use: always Working smoke detector in home: Yes Fire extinguisher in home: Yes Carbon monox detector in home: Yes Do you feel safe at home: Yes Do you feel safe in your relationship?: Yes History History 2 Para Hx # Term Pregnancies 2 Multiple births Hx # Pregnancies Ectopic pregnancies AB induced Hx Number of Living Children AB spontaneous Exam HENMT Other: Complains of mild headache today. She is a heavy caffeine user and is not had any cough today. Pupils are equal and reactive to light. No jaundice. Mucous membranes are moist. Mild neck pain. Resp Effort & Inspection: normal respiratory effort and able to speak in complete sentences Auscultation: clear to auscultation bilaterally Cardio Rate: regular rate Rhythm: regular rhythm GI Palpation: soft, no hernias, tender (Mid upper abdomen bilaterally. Along the course of the transverse colon) and No ascites Auscultation: hypoactive bowel sounds Other: Rectal exam was not done Skin General skin exam: no rashes or lesions noted Results Last Vital Signs Temp 36.8 C 10/30/21 09:02 Pulse 70 10/30/21 09:02 Resp 16 10/30/21 09:02 BP 100/63 10/30/21 09:02 Pulse Ox 96 10/30/21 09:02 Labs Result diagrams: 10/30/21 01:30 10/30/21 01:30 Labs: Laboratory Results - last 24 hr 10/30/21 10/30/21 10/30/21 01:30 01:30 01:30 WBC 11.70 H RBC 4.47 Hgb 14.0 Hct 42.3 MCV 94.6 MCH 31.3 MCHC 33.1 RDW 13.0 Plt Count 324 MPV 9.2 Immature Gran % 0.3 Neutrophils % 70.6 Lymphocytes % 22.3 Monocytes % 4.7 Eosinophils % 1.8 Basophils % 0.3 Nucleated RBC % 0 Absolute Neutrophils 8.26 H Absolute Lymphocytes 2.61 Absolute Monocytes 0.55 Absolute Eosinophils 0.21 Absolute Basophils 0.04 PT INR APTT VBG Lactate 0.9 Sodium 141 Potassium 3.8 Chloride 103 Carbon Dioxide 30.5 Anion Gap 7.5 BUN 15 Creatinine 0.8 Estimated GFR/1.73 m2 >= 60.00 Glucose 118 H Calcium 9.1 Total Bilirubin 0.2 AST 19 ALT 31 Alkaline Phosphatase 62 C-Reactive Protein Total Protein 7.9 Albumin 3.7 Lipase COVID-19 Source 10/30/21 10/30/21 10/30/21 01:30 01:30 03:40 WBC RBC Hgb Hct MCV MCH MCHC RDW Plt Count MPV Immature Gran % Neutrophils % Lymphocytes % Monocytes % Eosinophils % Basophils % Nucleated RBC % Absolute Neutrophils Absolute Lymphocytes Absolute Monocytes Absolute Eosinophils Absolute Basophils PT 9.9 INR 1.0 APTT 20.7 L VBG Lactate Sodium Potassium Chloride Carbon Dioxide Anion Gap BUN Creatinine Estimated GFR/1.73 m2 Glucose Calcium Total Bilirubin AST ALT Alkaline Phosphatase C-Reactive Protein Total Protein Albumin Lipase 105 COVID-19 Source Nasal/Nares 10/30/21 11:55 WBC RBC Hgb Hct MCV MCH MCHC RDW Plt Count MPV Immature Gran % Neutrophils % Lymphocytes % Monocytes % Eosinophils % Basophils % Nucleated RBC % Absolute Neutrophils Absolute Lymphocytes Absolute Monocytes Absolute Eosinophils Absolute Basophils PT INR APTT VBG Lactate Sodium Potassium Chloride Carbon Dioxide Anion Gap BUN Creatinine Estimated GFR/1.73 m2 Glucose Calcium Total Bilirubin AST ALT Alkaline Phosphatase C-Reactive Protein 2.11 H Total Protein Albumin Lipase COVID-19 Source
[2021-10-30 13:06] LABS: Procalcitonin < 0.1 ng/mL
[2021-10-30 13:09] LABS: COVID-19 PCR Negative (Negative)
--- NOTE | 2021-10-30 14:26 | W.ANESPRE ---
General Info Date of Service Date Performed: 10/30/21 Height: 5 ft 6 in Weight: 75.75 kg Body Mass Index (BMI): 26.9 Surgical Procedure: Operation Date: 10/30/21 14:25 Proposed Procedures Side Surgeon p Flexible Sigmoidoscopy Not Applicable Consuelo Amato, DO Meds Allergies and Home Medications Allergies Allergy/AdvReac Type Severity Reaction Status Date / Time No Known Drug Allergies Allergy Verified 10/30/21 01:50 Home Medication Medication Instructions Recorded magnesium citrate 100 mg tablet 400 mg PO HS 01/04/19 naproxen sodium 220 mg capsule 220 mg PO PRN cap 06/25/19 B-complex with vitamin C 1 tab PO DAILY 08/13/21 [id number]-[id number]-[id number] 50 1 cap PO DAILY PRN tab-cap 08/13/21 mg-325 mg-40 mg capsule cholecalciferol (vitamin D3) 10 400 unit PO DAILY 08/13/21 mcg (400 unit) capsule estradiol 0.5 mg tablet 0.5 mg PO DAILY #90 tab 08/13/21 progesterone micronized 100 mg 100 mg PO DAILY #90 cap 08/13/21 capsule zinc 50 mg tablet 50 mg PO DAILY 08/13/21 lorazepam 0.5 mg PO DAILY PRN PRN 10/30/21 Current Visit Medications: Current Medications Generic Name Dose Route Start Last Admin Trade Name Freq PRN Reason Stop Dose Admin Sodium Chloride 500 mls @ 0 mls/hr 10/30/21 03:24 Saline 500ml Bag IV PRN PRN As Directed Ciprofloxacin 400 mg in 200 mls @ 200 mls/hr 10/30/21 16:00 Cipro I.V. IVPB Q12H CATALINO Protocol Metronidazole 500 mg in 100 mls @ 100 mls/hr 10/30/21 14:00 10/30/21 14:02 Flagyl IVPB 100 mls/hr Q8H CATALINO Administration Promethazine HCl 12.5 mg/ 50.5 mls @ 200 mls/hr 10/30/21 10:52 Sodium Chloride IVPB Q4H PRN PRN Ringer's Solution 1,000 mls @ 150 mls/hr 10/30/21 11:00 10/30/21 11:32 IV 150 mls/hr INFUSION CATALINO Administration IV Miscellaneous Supplies 1 each 10/30/21 03:30 Iv Access IV DIRECTED CATALINO Morphine Sulfate 2 mg 10/30/21 03:24 Morphine 2 Mg/Ml Syr IVP Q1H PRN PRN Sodium Chloride 0 ml 10/30/21 03:24 Normal Saline Flush 10 Ml Syr IVP PRN PRN PFSH Active Problems Active Problems: Problem Status Onset Code Colitis K52.9 Hematochezia K92.1 Tinnitus, bilateral H93.13 Myofascial pain syndrome M79.1 Headache, migraine G43.909 Cervical spinal stenosis M48.02 Medical History Medical History Bilateral bunions Constipation Low back pain Sinusitis Surgical History Surgical History c-sections 2 Tobacco Smoking/Tobacco Use Status: Former Tobacco Use Alcohol Alcohol Intake: current Alcohol intake frequency: a few times a week Alcohol type: wine Substance Use Substance use: Never Substance use type: does not use Prental History History 2 Para Hx # Term Pregnancies 2 Multiple births Hx # Pregnancies Ectopic pregnancies AB induced Hx Number of Living Children AB spontaneous Vital Signs and Lab Results Vital Signs Most Recent Vital Signs in EMR: Most Recent Vital Signs Temp Pulse Resp BP Pulse Ox 36.8 C 70 16 100/63 96 10/30/21 09:02 10/30/21 09:02 10/30/21 09:02 10/30/21 09:02 10/30/21 09:02 Lab Results Result Diagrams: 10/30/21 01:30 10/30/21 01:30 Blood Type / Crossmatch: Patient ABO/Rh O Negative 10/30/21 11:55 10/30/21 Antibody Screen NEGATIVE 10/30/21 11:55 10/30/21 Complete Blood Count: White Blood Count 11.70 10^3/uL (4.4-10.8) H 10/30/21 01:30 10/30/21 Red Blood Count 4.47 10^6/uL (3.93-5.22) 10/30/21 01:30 10/30/21 Hemoglobin 14.0 g/dL (11.2-15.7) 10/30/21 01:30 10/30/21 Hematocrit 42.3 % (36.0-46.0) 10/30/21 01:30 10/30/21 Platelet Count 324 10^3/uL (130-400) 10/30/21 01:30 10/30/21 Venous Blood Lactate 0.9 mmol/L (0.6-1.4) 10/30/21 01:30 10/30/21 Complete Metabolic Panel: Sodium Level 141 mmol/L (136-145) 10/30/21 01:30 10/30/21 Potassium Level 3.8 mmol/L (3.5-5.1) 10/30/21 01:30 10/30/21 Chloride Level 103 mmol/L (98-107) 10/30/21 01:30 10/30/21 Carbon Dioxide Level 30.5 mmol/L (21.0-32.0) 10/30/21 01:30 10/30/21 Blood Urea Nitrogen 15 mg/dL (7-18) 10/30/21 01:30 10/30/21 Creatinine 0.8 mg/dL (0.55-1.02) 10/30/21 01:30 10/30/21 Estimated GFR/1.73 m2 >= 60.00 (mL/min/1.73m2) 10/30/21 01:30 10/30/21 Calcium Level 9.1 mg/dL (8.5-10.1) 10/30/21 01:30 10/30/21 Albumin 3.7 g/dL (3.4-5.0) 10/30/21 01:30 10/30/21 Glucose Level 118 mg/dL (74-106) H 10/30/21 01:30 10/30/21 C-Reactive Protein 2.11 mg/dL (0.0-0.3) H 10/30/21 11:55 10/30/21 Liver Function Panel: Alanine Aminotransferase (ALT/SGPT) 31 U/L (14-59) 10/30/21 01:30 10/30/21 Aspartate Amino Transf (AST/SGOT) 19 U/L (15-37) 10/30/21 01:30 10/30/21 Coagulation Panel: INR International Normalized Ratio 1.0 (0.9-1.1) 10/30/21 01:30 10/30/21 Prothrombin Time 9.9 sec (9.3-11.0) 10/30/21 01:30 10/30/21 Activated Partial Thromboplast Time 20.7 sec (21.0-27.5) L 10/30/21 01:30 10/30/21 Cardiac Panel: No Data to Display Arterial Blood Gas: No Data to Display Venous Blood Gas: No Data to Display Pancreas Panel: Lipase 105 U/L (73-393) 10/30/21 01:30 10/30/21 Thyroid Panel: No Data to Display Infectious Disease: Coronavirus (COVID-19)(PCR) Negative (Negative) 10/30/21 03:40 10/30/21 Coronavirus 2019 Source Nasal/Nares 10/30/21 03:40 10/30/21 Blood Cultures: No Data to Display Toxicology Panel: No Data to Display Anesthesia Assessment and Plan Anesthesia History Personal History: No History of Anesthesia Complications Family History: No Family History of Anesthesia Complications Exercise Tolerance Exercise Tolerance: Metabolic Equivalents>4 Pertinent Negatives Pertinent Negatives: No Major Cardiovascular Symptoms or Complaints, No Major Pulmonary Symptoms or Complaints and No History of CVA/TIA Cardiac & Pulmonary Exam Cardiac Exam: Normal S1/S2 Heart Sounds Pulmonary Exam: Clear Bilateral Breath Sounds Implantable Cardiac Device Does patient have a Pacemaker or an ICD?: No Airway Exam Known Difficult Airway: No Mallampati Class: 3 Mouth Opening: Normal (> 3cm) Thyromental Distance: Greater than 3 cm Neck Range of Motion: Full ROM Neck Circumference: Normal Teeth Condition: Normal Dentition ASA Classification ASA Score: ASA 2 Emergency Case?: Yes NPO Status NPO Status: NPO Clears >2 hours, Solids >8 hours Anesthesia Plan Resuscitation Status: Full Code Anesthesia Technique: General Anesthesia Airway Planned: Natural Airway Monitors Used: Standard Monitors
--- NOTE | 2021-10-30 14:30 | BOWEL_PTH ---
PATIENT: Ilana Lund LOC: U#:[id number] AGE/SX: 61/F ROOM: [id number] RE10/30/[address]: Consuelo Amato : 1960 BED: A DIS: 11/01/2021 SPEC #: [id number] RECD: 11/02/21 12:44 STATUS: FELIPE REQ #: [id number] DANICA: 10/30/21 14:[address]: Consuelo Amato DEPT: Surgical Specimen RECD BY: Leti Dunn ENTERED: 11/02/21 12:46 SP TYPE: Bowel OTHR DR: Ismael Coello, MAKE UP OPERATOR Tissues: 1 - BIOPSY BOWEL 2 - BIOPSY BOWEL 3 - BIOPSY BOWEL 4 - BIOPSY BOWEL 5 - BIOPSY BOWEL 6 - BIOPSY BOWEL Procedures: GROSS AND MICRO LEVEL 4 Comments: [id number]
--- NOTE | 2021-10-30 14:42 | CHAPLAIN ---
Ilana was resting in bed when I visit. She was pleasant, but not interested in further conversation.
--- NOTE | 2021-10-30 15:33 | COLE_ITS ---
Colonoscopy Report Date of procedure: 10/30/21 Pre-op diagnosis general: abdominal pain/rectal bleeding & diarrhea/abnomral CT Procedure: unprepped ce w/ bx Surgeon: Consuelo Amato Anesthesia Type: General:No Airway Estimated blood loss (mL): 1 Pathology: other Complications: None Disposition: floor Prep: Other (none) Procedure Description: After informed consent was obtained the patient was taken to the procedure room and placed in a left decubitous position. Monitors were applied and a time out was done. The patients name, date of , procedure, allergies to medications and metal in their body was reviewed. The patient was then sedated. Once sedated and comfortable a rectal exam was done. External exams shows ext. hemorrhoidal tags. Internal exam revealed a normal sphincter tone and no palpable masses. The scope was then introduced and retrofelexed. no internal hemorrhoids were identified. The scope was then advanced to the right colon. This was unprepped scope. We will do seem to be in the mid- the right colon by external palpation, but I could not pop into the cecum. The normal landmarks are obscured by liquid stool. The transverse colon and left colon were relatively clean and no large lesions were seen. No diverticula were seen. No polyps were seen. There is bleeding noted at 50 cm, and distaly to the rectum. Above 50 cm there is no further old blood. The bleeding appears to old blood and not bright red blood bleeding. No areas of active bleeding could be identified. There are no diverticula. Proximal to 50 cm, the colon is covered in liquid stool, so polyps could not visualized. A biopsy was done of the right colon. This mucosa appears pink and healthy. At 50 cm she has a 1 cm wide, linear ulceration that covers approximately 50% of this circumference of the colon in the mesenteric side. It has the appearance of ischemia. Multiple biopsies were taken. It does bleed readily. It is bright red blood. The adjacent mucosa appears pink and healthy and normal. Biopsies were also taken at 40 cm and 60 cm as well as adjacent to the 50 cm ulceration, And in the rectum. Again all the tissue other than this small linear ulceration appears normal and healthy. The scope was removed and the patient was woken up and taken back to [facility] in stable condition. I did review findings with the patient. The patient tolerated the procedure well and there were no immediate complications. She will need a complete prep colonoscopy for routine colon cancer screening. Polyps could have been missed on this nonprep prep to exam today. There does not appear to be any signs of the diverticular disease or infl ammatory bowel disease. Multiple biopsies again were taken of this ulceration. I think this does represent an ischemic ulcer. I will review CT with radiology Findings were also discussed with Dr. Salvador
[2021-10-30 16:11] LABS: C Diff PCR Negative (Negative)
[2021-10-30] MEDS: Normal Saline Flush 10 ML SYR IVP ×2 (16:50→21:31)
[2021-10-30] MEDS: MORPHine 2 MG/ML SYR IVP (16:50)
[2021-10-30] MEDS: Normal Saline 500 ML 100 ML IV (18:11)
[2021-10-30] MEDS: ACETAMINOPHEN 1,000 MG/100 ML BTL 400 MG IVPB (18:11)
[2021-10-30 18:48] LABS: Lactate 1.1 mmol/L (0.6-1.4)
[2021-10-31 00:06] VITALS: BP 120/70; PULSE 80; RESP 18; TEMP 36.5; O2SAT 98
[2021-10-31] MEDS: ACETAMINOPHEN 1,000 MG/100 ML BTL 400 MG IVPB (03:23)
[2021-10-31] MEDS: CIPROFLOXACIN 400 MG/200 ML BAG 200 MG IVPB ×2 (04:04→16:22)
[2021-10-31] MEDS: metroNIDAZOLE 500 MG/100 ML BAG 100 MG IVPB ×3 (06:18→22:21)
[2021-10-31] MEDS: Lactated Ringers 1,000 ML 150 ML IV ×2 (06:20→14:56)
[2021-10-31 07:21] LABS: Abs Immature Grans 0.02 10^3/uL (0.0-0.06); Absolute Basophil Count 0.03 10^3/uL (0.0-0.2); Absolute Lymphocyte Count 1.61 10^3/uL (1.2-3.4); Absolute Monocyte Count 0.38 10^3/uL (0.1-0.8); Absolute Neutrophil Count 6.76 10^3/uL (1.2-6.7); Basophils % 0.3; Eosinophils % 3.3; HCT 34.8 % (36.0-46.0); HGB 11.7 g/dL (11.2-15.7); Immature Grans % 0.2; Lymphocytes % 17.7; MCH 31.5 pg (27.0-33.0); MCHC 33.6 % (32.0-36.0); MCV 93.8 fL (80-95); MPV 9.4 fL (8.0-11.0); Monocytes % 4.2; Neutrophils % 74.3; Nucleated RBC 0 %; Platelet Count 242 10^3/uL (130-400); RBC 3.71 10^6/uL (3.93-5.22); RDW 13.2 % (11.7-14.6); RDW-SD 45.4 fL
[2021-10-31 07:42] LABS: ALT 22 U/L (14-59); AST 16 U/L (15-37); Albumin 2.8 g/dL (3.4-5.0); Alkaline Phosphatase 52 U/L (46-116); Anion Gap 6.4 mmol/L (3-11); BUN 4 mg/dL (7-18); Bilirubin, Total 0.7 mg/dL (0.2-1.0); CO2 27.6 mmol/L (21.0-32.0); CREATININE 0.7 mg/dL (0.55-1.02); Calcium 8.1 mg/dL (8.5-10.1); Chloride 105 mmol/L (98-107); Glucose 97 mg/dL (74-106); Potassium 3.3 mmol/L (3.5-5.1); Sodium 139 mmol/L (136-145); Total Protein 6.2 g/dL (6.4-8.2)
--- NOTE | 2021-10-31 07:49 | W.ANESPOSTOP ---
Postoperative Evaluation Date, Time and Location Date Performed: 10/30/21 Time Performed: 15:22 Patient Location: Med/Surg Vital Signs Most Recent Imported Vital Signs: Most Recent Vital Signs Temp Pulse Resp BP Pulse Ox 36.5 C 80 18 120/70 98 10/31/21 00:06 10/31/21 00:06 10/31/21 00:06 10/31/21 00:06 10/31/21 00:06 Pain Score Most Recent Pain Score: Most Recent Pain Score Pain Level 6 10/31/21 03:23 Assessment Mental Status: Awake (Alert & Oriented to Patient Baseline) Airway and Respiratory Function: Patent airway with normal (patient baseline) respiratory exam Cardiovascular Function: Hemodynamically Stable Hydration Status: Adequately Hydrated Nausea & Vomiting: No Nausea or Vomiting Pain: Pain is tolerable per patient (unchanged from preop discomfort) Peripheral Nerve Block: Patient did not receive a nerve block
[2021-10-31 07:50] VITALS: BP 121/80; PULSE 68; RESP 17; TEMP 36.8; O2SAT 98
[2021-10-31] MEDS: Aspirin E.C. 81 MG TABEC PO (08:17)
[2021-10-31] MEDS: Potassium Chloride 10 MEQ CAPCR 20 MEQ PO ×2 (08:52→19:45)
--- NOTE | 2021-10-31 13:54 | PHA.REVIEW ---
Pharmacy Admission Review - Admission Clinical Review (Last Reviewed 10/30/21 @ 14:20 by Consuelo Amato DO) Hematochezia (Acute) No Known Drug Allergies Allergy (Verified 10/30/21 01:50) Resuscitation Status Full Code Height 5 ft 6 in Weight 75.75 kg - Renal Dosing Renal Dosing: BUN 4 mg/dL (7-18) L 10/31/21 06:48 Creatinine 0.7 mg/dL (0.55-1.02) 10/31/21 06:48 Medications needing adjustments: Reviewed (CRCL ~71ML/MIN) - Anticoagulation Anticoagulation: Hgb 11.7 g/dL (11.2-15.7) D 10/31/21 06:48 Hct 34.8 % (36.0-46.0) L 10/31/21 06:48 Plt Count 242 10^3/uL (130-400) 10/31/21 06:48 INR 1.0 (0.9-1.1) 10/30/21 01:30 Creatinine 0.7 mg/dL (0.55-1.02) 10/31/21 06:48 DVT Prophylaxis: N/A (Hematochezia) Therapeutic Anticoagulation: N/A - Relevant Labs Sodium 139 mmol/L (136-145) 10/31/21 06:48 Potassium 3.3 mmol/L (3.5-5.1) L 10/31/21 06:48 Chloride 105 mmol/L (98-107) 10/31/21 06:48 C-Reactive Protein 2.11 mg/dL (0.0-0.3) H 10/30/21 11:55 Electrolytes, C-Reactive P, ESR: Reviewed (kcl replacement ordered) - DM Control DM Control: Glucose 97 mg/dL (74-106) 10/31/21 06:48 Insulin Dosing: N/A - BP Control BP Control: Blood Pressure 121/80 If elevated: N/A - IV to PO Switch IV Medications: Reviewed (IV ABX advancing diet today) - Home Meds Home Med List reviewed: Reviewed (vits, lorazepam, estradiol/progesterone all not ordered) - Current meds Current Medication Order Review: Reviewed (BC pending)
[2021-10-31 15:15] VITALS: BP 112/67; PULSE 78; RESP 14; TEMP 36.5; O2SAT 97
--- NOTE | 2021-10-31 16:12 | W.PM.PROGNOT ---
Date of Service Date of service: 10/31/21 Time of Service: 16:12 Assessment and Plan Assessment and plan (1) Elevated lipids: Status: Acute (2) Nongangrenous ischemic colitis: Status: Acute Assessment and plan: clinically improving. minimal pain and no blood. tolerating soft diet cont abx and supportive cares plan d/c in am cont outpt work/up 40 mins in f/u today (3) Current use of estrogen therapy: Status: Acute Subjective Subjective Interval history since last seen: Pt is doing better. no headaches. No CP or SOB. no productive cough. no dysuria. no leg pain or swelling. Patient was tolerating clear liquids well and had no abdominal pain. She got transition to a postop soft diet. And had chicken and carrots for supper. Now she feels kind of bloated and crampy. We will back her off to a super soft/full liquid diet. I would like to keep her on antibiotics another 24 hours she is tolerating the aspirin. We discussed her diagnosis and further work-up as an outpatient. There is no family history of clotting disorders and she has never had a DVT or PE.. She has a very remote hx of smoking/mild elevated lipid profile. No: DM/personnel hx of CAD (there is a family hx of CAD) Exam HENMT Other: thrush Resp Effort & Inspection: normal respiratory effort and able to speak in complete sentences Auscultation: clear to auscultation bilaterally Cardio Rate: regular rate Rhythm: regular rhythm GI Palpation: soft and tender (mild- over transverse colon ) Auscultation: normal bowel sounds Extrem General: no clubbing, cyanosis or edema Objective Last Vital Signs Temp 36.5 C 10/31/21 15:15 Pulse 78 10/31/21 15:15 Resp 14 10/31/21 15:15 BP 112/67 10/31/21 15:15 Pulse Ox 97 10/31/21 15:15 Laboratory Results - last 24 hr 10/30/21 10/30/21 10/31/21 14:50 18:25 06:48 WBC RBC Hgb Hct MCV MCH MCHC RDW Plt Count MPV Immature Gran % Neutrophils % Lymphocytes % Monocytes % Eosinophils % Basophils % Nucleated RBC % Absolute Neutrophils Absolute Lymphocytes Absolute Monocytes Absolute Eosinophils Absolute Basophils VBG Lactate 1.1 Sodium 139 Potassium 3.3 L Chloride 105 Carbon Dioxide 27.6 Anion Gap 6.4 BUN 4 L Creatinine 0.7 Estimated GFR/1.73 m2 >= 60.00 Glucose 97 Calcium 8.1 L Total Bilirubin 0.7 AST 16 ALT 22 Alkaline Phosphatase 52 Total Protein 6.2 L Albumin 2.8 L Stl C.difficile Tox PCR Negative 10/31/21 06:48 WBC 9.10 RBC 3.71 L Hgb 11.7 D Hct 34.8 L MCV 93.8 MCH 31.5 MCHC 33.6 RDW 13.2 Plt Count 242 MPV 9.4 Immature Gran % 0.2 Neutrophils % 74.3 Lymphocytes % 17.7 Monocytes % 4.2 Eosinophils % 3.3 Basophils % 0.3 Nucleated RBC % 0 Absolute Neutrophils 6.76 H Absolute Lymphocytes 1.61 Absolute Monocytes 0.38 Absolute Eosinophils 0.30 Absolute Basophils 0.03 VBG Lactate Sodium Potassium Chloride Carbon Dioxide Anion Gap BUN Creatinine Estimated GFR/1.73 m2 Glucose Calcium Total Bilirubin AST ALT Alkaline Phosphatase Total Protein Albumin Stl C.difficile Tox PCR
--- NOTE | 2021-10-31 17:47 | W.PM.PROGNOT ---
Date of Service Date of service: 10/31/21 Time of Service: 17:47 Assessment and Plan Assessment and plan (1) Nongangrenous ischemic colitis: Status: Acute Assessment and plan: Continue antibiotic treatment. Back off her diet to full liquids fiber restricted diet. Bentyl has been added for as needed use for abdominal spasms. This point surgery is going to take over management and we will sign off but be available for any acute medical issues. (2) Hematochezia: Status: Acute Subjective Subjective Interval history since last seen: Patient's diet was advanced today from clears to solid foods which she did not tolerate well so we have decreased her diet. She still has crampy epigastric abdominal pains that she describes as like she ate a whole block of cheese and a loaf of bread and feels bloated. She is having flatus and has some liquid stools today. No hematochezia. She remains on Cipro and Flagyl. I discussed her case w/ Dr. Amato today. She indicated that the surgical service will assume the care of the patient and hopefully will be able to discharge her home tomorrow and they will follow up on her biopsies. The thinking is that this is either an ischemic colitis vs IBD. Exam Narrative Exam Narrative: Middle-aged white female sitting up in bed eating some chicken soup. She does not appear to be in any distress. Abdomen with diffuse active bowel sounds with some epigastric tenderness and questionable rebound tenderness. Abdomen remains soft not firm there is no palpable masses. When I distracted her I was able to palpate deeply but I could tell that she did wince when I palpated her. Objective Last Vital Signs Temp 36.5 C 10/31/21 15:15 Pulse 78 10/31/21 15:15 Resp 14 10/31/21 15:15 BP 112/67 10/31/21 15:15 Pulse Ox 97 10/31/21 15:15 Laboratory Results - last 24 hr 10/30/21 10/31/21 10/31/21 18:25 06:48 06:48 WBC 9.10 RBC 3.71 L Hgb 11.7 D Hct 34.8 L MCV 93.8 MCH 31.5 MCHC 33.6 RDW 13.2 Plt Count 242 MPV 9.4 Immature Gran % 0.2 Neutrophils % 74.3 Lymphocytes % 17.7 Monocytes % 4.2 Eosinophils % 3.3 Basophils % 0.3 Nucleated RBC % 0 Absolute Neutrophils 6.76 H Absolute Lymphocytes 1.61 Absolute Monocytes 0.38 Absolute Eosinophils 0.30 Absolute Basophils 0.03 VBG Lactate 1.1 Sodium 139 Potassium 3.3 L Chloride 105 Carbon Dioxide 27.6 Anion Gap 6.4 BUN 4 L Creatinine 0.7 Estimated GFR/1.73 m2 >= 60.00 Glucose 97 Calcium 8.1 L Total Bilirubin 0.7 AST 16 ALT 22 Alkaline Phosphatase 52 Total Protein 6.2 L Albumin 2.8 L
[2021-10-31] MEDS: Normal Saline Flush 10 ML SYR IVP (19:44)
[2021-10-31] MEDS: Normal Saline 500 ML 100 ML IV (22:31)
[2021-11-01 00:12] VITALS: BP 106/65; PULSE 68; RESP 16; TEMP 36.8; O2SAT 96
[2021-11-01] MEDS: CIPROFLOXACIN 400 MG/200 ML BAG 200 MG IVPB (03:46)
[2021-11-01] MEDS: Normal Saline Flush 10 ML SYR IVP ×2 (03:46→05:09)
[2021-11-01] MEDS: metroNIDAZOLE 500 MG/100 ML BAG 100 MG IVPB (05:57)
[2021-11-01 05:59] LABS: Abs Immature Grans 0.02 10^3/uL (0.0-0.06); Absolute Basophil Count 0.04 10^3/uL (0.0-0.2); Absolute Eosinophil Count 0.61 10^3/uL (0.0-0.7); Basophils % 0.5; Eosinophils % 7.2; HCT 37.8 % (36.0-46.0); HGB 12.2 g/dL (11.2-15.7); Immature Grans % 0.2; Lymphocytes % 23.6; MCH 30.9 pg (27.0-33.0); MCHC 32.3 % (32.0-36.0); MCV 95.7 fL (80-95); MPV 9.4 fL (8.0-11.0); Monocytes % 5.9; Neutrophils % 62.6; Nucleated RBC 0 %; Platelet Count 271 10^3/uL (130-400); RBC 3.95 10^6/uL (3.93-5.22); RDW-SD 46.2 fL; WBC 8.47 10^3/uL (4.4-10.8)
[2021-11-01 06:09] LABS: BUN 6 mg/dL (7-18); CREATININE 0.8 mg/dL (0.55-1.02); Calcium 8.7 mg/dL (8.5-10.1); Chloride 105 mmol/L (98-107); Glucose 113 mg/dL (74-106); Sodium 141 mmol/L (136-145)
[2021-11-01 06:15] LABS: Potassium 4.2 mmol/L (3.5-5.1)
[2021-11-01] MEDS: Potassium Chloride 10 MEQ CAPCR 20 MEQ PO (07:39)
[2021-11-01 07:40] VITALS: BP 130/86; PULSE 67; RESP 16; TEMP 36.6; O2SAT 98
[2021-11-01] MEDS: Aspirin E.C. 81 MG TABEC PO (07:40)
--- NOTE | 2021-11-01 12:32 | W.PM.DSUDISC ---
Discharge Plan Disposition Patient Disposition: HOME Condition: Improving Discharge Details Reason For Visit: Ischemic ulcer of the colon Admit Date/Time: 11/01/21 09:19 Admit Provider: Ismael Coello Attending Provider: Consuelo Amato Primary Care Provider: Camelia Crockett Hospital Course Hospital Course: See addendum Home Meds and New Rx's Prescriptions: New aspirin [Cara Chewable Aspirin] 81 mg tablet,chewable 81 mg PO DAILY Qty: 30 RF: 12 ciprofloxacin HCl 500 mg tablet 500 mg PO BID 4 Days Qty: 8 RF: 0 metronidazole 500 mg tablet 500 mg PO Q8H 4 Days Qty: 12 RF: 0 Continued cholecalciferol (vitamin D3) 10 mcg (400 unit) capsule 400 unit PO DAILY RF: 0 zabavyhkgo-elezpfi-mevjplty 50-325-40 mg capsule 1 cap PO DAILY PRN (Reason: pain) RF: 0 zinc 50 mg tablet 50 mg PO DAILY RF: 0 B-complex with vitamin C Tablet 1 tab PO DAILY RF: 0 estradiol 0.5 mg tablet 0.5 mg PO DAILY Qty: 90 RF: 3 progesterone micronized [Prometrium] 100 mg capsule 100 mg PO DAILY Qty: 90 RF: 3 magnesium citrate 100 mg tablet 400 mg PO HS RF: 0 lorazepam 0.5 mg tablet 0.5 mg PO DAILY PRN PRN (Reason: anxiety for flights) RF: 0 Discontinued naproxen sodium [Aleve] 220 mg capsule 220 mg PO PRN RF: 0 Discharge Instructions Additional Instructions: -No driving x24 hrs -Follow-up with Dr. Amato on -my office will call on Tuesday to make an appointment -soft diet: see below -no straining to move bowels -pain meds are very constipating: if you do not move your bowels daily take a dose of OTC milk of magnesia -It is ok to shower. -Yogurt daily while on antibiotic -Protein supplements daily. You may find that your appetite is smaller. Eat 3-6 small meals throughout the day. It is important to drink lots of water after surgery, 6-10 glasses a day. 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 -We do want you up walking, at least 5-6 times per day. This is very important to prevent pneumonia and blood clots. You can climb stairs, take them slowly. -No lifting over 5 pounds. or strenuous activity x 1 week. -You may find that you are very tired - this is normal. -please do not smoke for a minimum of 72 hours after surgery. Gastrointestinal Soft Diet Overview Overview What is a gastrointestinal soft diet? This diet is soft in texture, low in fiber, and easy to digest. The goal is to decrease) in the bowel that may cause and discomfort. This diet is often used after abdominal surgery or as a transitional diet after flares. Meats & Meat Substitutes ? Foods Allowed: Chicken, turkey, fish, tender cuts of beef and pork, ground meats, eggs, creamy nut butters, tofu, skinless hot dogs, sausage patties without whole spices ? Foods to Avoid : Tough, fibrous meats with gristle, meat with casings (hot dogs, sausage, kielbasa), lunch meats with whole spices, shellfish, beans, chunky peanut butter, nuts Fruits and Juices ? Foods Allowed: Fruit juices without pulp, banana, avocado, applesauce, canned peaches and pears, cooked fruit without the skin/seeds. Ground or over- cooked fruits. Fruits ground finely in a ?smoothie?. ? Foods to Avoid: Juices with pulp, fresh fruit (except banana and avocado), dried fruits, canned fruit cocktail and pineapple, coconut, frozen/thawed berries Vegetables ? Foods Allowed: Well-cooked or canned vegetables, potatoes without skin, tomato sauces, vegetable juice ? Foods to Avoid: Raw vegetables, all corn, all mushrooms, stewed tomatoes, potato skins, stir-munoz vegetables, sauerkraut, pickles, olives, all dried beans, peas, and legumes Cereals and Grains ? Foods Allowed: Low- fiber dry or cooked cereals (less than 2 grams fiber per serving), white rice, pasta, macaroni, or noodles ? Foods to Avoid: Cereals with nuts, berries, dried fruits, whole grain cereals, bran cereals, granola, brown or wild rice, whole grain pasta Breads and Crackers ? Foods Allowed: White/refined breads and rolls, plain bagel, toast, plain crackers, aminah crackers ? Foods to Avoid: Whole grain breads- including white whole grain; bread/ rolls with raisins, nuts or seeds, multi-grain crackers Dairy ? Foods Allowed: Milk, cheese, yogurt, milkshakes, pudding, ice cream, cottage cheese, sherbet ; lactose free or low lactose versions if lactose intolerant ? Foods to Avoid: Dairy product mixed with fresh fruit (except banana), berries, nuts or seeds Desserts ? Foods Allowed: Plain cake, pudding, custard, ice cream, sherbet, gelatin, fruit whips ? Foods to Avoid: Any dessert that contains nuts, dried fruits, coconut, or fruits with seeds Herbs and Spices ? Foods Allowed: All ground spices or herbs, salt ? Foods to Avoid: Whole spices such as peppercorns, whole cloves, anise seeds, celery seeds, diamond, dion seeds, and fresh herbs Snacks/Other Foods ? Foods Allowed: Sugar, honey, jelly, mayonnaise, mustard, soy sauce, oil, butter, margarine, marshmallows, cookies without dried fruits or nuts, snack chips and pretzels using refined flours ? Foods to Avoid: Carbonated beverages, jams or jellies with seeds, popcorn After several weeks, slowly start to reintroduce the ?Foods to Avoid? back into your diet unless your doctor has told you otherwise. Try a small portion of one of these foods each day. If it does not bother you within 24 hours, it can be added to your diet. Continue to add new foods in this way. Some people may continue to have food sensitivities and may need to continue to avoid certain foods. If you cannot tolerate a food, avoid that food for a few weeks before you try it again. Guidelines when eating 1. Avoid any food that you cannot tolerate or that causes gas, bloating, or stomach pain. 2. Make time for your meals. Do not eat while you are in a hurry. Cut your food into small pieces. Chew each bite to a mashed potato consistency. Do not eat when you cannot concentrate on chewing well. 3. Drink at least 6-8 cups of fluid per day Fluids include: water, coffee, tea, juice, milk, popsicles, soups, gelatin, pudding, ice cream, sherbet, and yogurt. In addition, choose caffeine-free beverages more often, especially if you are having diarrhea. 4. A daily multivitamin may be recommended if diet is limited in amounts or variety of foods. Do not take any herbal supplements without first checking with your doctor. Activity:: see above Equipment/Supplies:: No Equipment Needed Diet:: soft Discharge Orders Discharge Orders: Discharge Order (Routine); Ordered 11/01/21 Ordered By: Consuelo Amato DS: Diagnosis Discharge Diagnosis (1) Elevated lipids: Status: Acute (2) Nongangrenous ischemic colitis: Status: Acute (3) Current use of estrogen therapy: Status: Acute
--- NOTE | 2021-11-01 13:18 | DSE_ITS ---
DS: Diagnosis Discharge Diagnosis (1) Elevated lipids: Status: Acute (2) Nongangrenous ischemic colitis: Status: Acute (3) Current use of estrogen therapy: Status: Acute Discharge Plan Disposition Patient Disposition: HOME Condition: Improving Discharge Details Reason For Visit: Ischemic ulcer of the colon Admit Date/Time: 11/01/21 09:19 Admit Provider: Ismael Coello Attending Provider: Consuelo Amato Primary Care Provider: Camelia Crockett Hospital Course Hospital Course: See addendum Home Meds and New Rx's Prescriptions: New aspirin [Cara Chewable Aspirin] 81 mg tablet,chewable 81 mg PO DAILY Qty: 30 RF: 12 ciprofloxacin HCl 500 mg tablet 500 mg PO BID 4 Days Qty: 8 RF: 0 metronidazole 500 mg tablet 500 mg PO Q8H 4 Days Qty: 12 RF: 0 ciprofloxacin HCl [Cipro] 500 mg tablet 500 mg PO BID 4 Days Qty: 8 RF: 0 metronidazole 500 mg tablet 500 mg PO Q12H 4 Days Qty: 8 RF: 0 metronidazole 500 mg tablet 500 mg PO Q8H 4 Days Qty: 12 RF: 0 Continued cholecalciferol (vitamin D3) 10 mcg (400 unit) capsule 400 unit PO DAILY RF: 0 aaqdmtusry-oplfokf-mdjuiwgx 50-325-40 mg capsule 1 cap PO DAILY PRN (Reason: pain) RF: 0 zinc 50 mg tablet 50 mg PO DAILY RF: 0 B-complex with vitamin C Tablet 1 tab PO DAILY RF: 0 estradiol 0.5 mg tablet 0.5 mg PO DAILY Qty: 90 RF: 3 progesterone micronized [Prometrium] 100 mg capsule 100 mg PO DAILY Qty: 90 RF: 3 magnesium citrate 100 mg tablet 400 mg PO HS RF: 0 lorazepam 0.5 mg tablet 0.5 mg PO DAILY PRN PRN (Reason: anxiety for flights) RF: 0 Discontinued naproxen sodium [Aleve] 220 mg capsule 220 mg PO PRN RF: 0 Discharge Instructions Additional Instructions: -No driving x24 hrs -Follow-up with Dr. Amato on -my office will call on Tuesday to make an appointment -soft diet: see below -no straining to move bowels -pain meds are very constipating: if you do not move your bowels daily take a dose of OTC milk of magnesia -It is ok to shower. -Yogurt daily while on antibiotic -Protein supplements daily. You may find that your appetite is smaller. Eat 3-6 small meals throughout the day. It is important to drink lots of water after surgery, 6-10 glasses a day. -If you were given an incentive spirometry (breathing speech therapist?), continue to do this 10x/hour while awake. -We do want you up walking, at least 5-6 times per day. This is very important to prevent pneumonia and blood clots. You can climb stairs, take them slowly. -No lifting over 5 pounds. or strenuous activity x 1 week. -You may find that you are very tired - this is normal. -please do not smoke for a minimum of 72 hours after surgery. Gastrointestinal Soft Diet Overview Overview What is a gastrointestinal soft diet? This diet is soft in texture, low in fiber, and easy to digest. The goal is to decrease) in the bowel that may cause and discomfort. This diet is often used after abdominal surgery or as a transitional diet after flares. Meats & Meat Substitutes ? Foods Allowed: Chicken, turkey, fish, tender cuts of beef and pork, ground meats, eggs, creamy nut butters, tofu, skinless hot dogs, sausage patties without whole spices ? Foods to Avoid : Tough, fibrous meats with gristle, meat with casings (hot dogs, sausage, kielbasa), lunch meats with whole spices, shellfish, beans, chunky peanut butter, nuts Fruits and Juices ? Foods Allowed: Fruit juices without pulp, banana, avocado, applesauce, canned peaches and pears, cooked fruit without the skin/seeds. Ground or over- cooked fruits. Fruits ground finely in a ?smoothie?. ? Foods to Avoid: Juices with pulp, fresh fruit (except banana and avocado), dried fruits, canned fruit cocktail and pineapple, coconut, frozen/thawed berries Vegetables ? Foods Allowed: Well-cooked or canned vegetables, potatoes without skin, tomato sauces, vegetable juice ? Foods to Avoid: Raw vegetables, all corn, all mushrooms, stewed tomatoes, potato skins, stir-munoz vegetables, sauerkraut, pickles, olives, all dried beans, peas, and legumes Cereals and Grains ? Foods Allowed: Low- fiber dry or cooked cereals (less than 2 grams fiber per serving), white rice, pasta, macaroni, or noodles ? Foods to Avoid: Cereals with nuts, berries, dried fruits, whole grain cereals, bran cereals, granola, brown or wild rice, whole grain pasta Breads and Crackers ? Foods Allowed: White/refined breads and rolls, plain bagel, toast, plain crackers, aminah crackers ? Foods to Avoid: Whole grain breads- including white whole grain; bread/ rolls with raisins, nuts or seeds, multi-grain crackers Dairy ? Foods Allowed: Milk, cheese, yogurt, milkshakes, pudding, ice cream, cottage cheese, sherbet ; lactose free or low lactose versions if lactose intolerant ? Foods to Avoid: Dairy product mixed with fresh fruit (except banana), berri es, nuts or seeds Desserts ? Foods Allowed: Plain cake, pudding, custard, ice cream, sherbet, gelatin, fruit whips ? Foods to Avoid: Any dessert that contains nuts, dried fruits, coconut, or fruits with seeds Herbs and Spices ? Foods Allowed: All ground spices or herbs, salt ? Foods to Avoid: Whole spices such as peppercorns, whole cloves, anise seeds, celery seeds, diamond, dion seeds, and fresh herbs Snacks/Other Foods ? Foods Allowed: Sugar, honey, jelly, mayonnaise, mustard, soy sauce, oil, butter, margarine, marshmallows, cookies without dried fruits or nuts, snack chips and pretzels using refined flours ? Foods to Avoid: Carbonated beverages, jams or jellies with seeds, popcorn After several weeks, slowly start to reintroduce the ?Foods to Avoid? back into your diet unless your doctor has told you otherwise. Try a small portion of one of these foods each day. If it does not bother you within 24 hours, it can be added to your diet. Continue to add new foods in this way. Some people may continue to have food sensitivities and may need to continue to avoid certain foods. If you cannot tolerate a food, avoid that food for a few weeks before you try it again. Guidelines when eating 1. Avoid any food that you cannot tolerate or that causes gas, bloating, or stomach pain. 2. Make time for your meals. Do not eat while you are in a hurry. Cut your food into small pieces. Chew each bite to a mashed potato consistency. Do not eat when you cannot concentrate on chewing well. 3. Drink at least 6-8 cups of fluid per day Fluids include: water, coffee, tea, juice, milk, popsicles, soups, gelatin, pudding, ice cream, sherbet, and yogurt. In addition, choose caffeine-free beverages more often, especially if you are having diarrhea. 4. A daily multivitamin may be recommended if diet is limited in amounts or variety of foods. Do not take any herbal supplements without first checking with your doctor. Stand Alone Forms: Nursing Discharge Form Activity:: see above Equipment/Supplies:: No Equipment Needed Diet:: soft Discharge Orders Discharge Orders: Discharge Order (Routine); Ordered 11/01/21 Ordered By: Consuelo Amato Discharge Data Discharge Date/Time-TO BE ENTERED AT DEPARTURE: 11/01/21 13:27 DS: Summary Time Spent with Patient providing and/or coordinating discharge services: Less than 30 minutes Status at Discharge Functional status at discharge: independent ambulation Overall status at discharge: patient is progressing back to baseline Mental Status: mental status grossly normal Speech and Movement: speech and movement normal Mood: congruent mood Affect: normal affect Exam Psych Mental Status: mental status grossly normal Speech and Movement: speech and movement normal Mood: congruent mood Affect: normal affect DS: Data Vitals/I&O Vitals and I&O: Vital Signs Temperature 36.6 C 11/01/21 07:40 Temperature Source Tympanic 11/01/21 07:40 Pulse 67 11/01/21 07:40 Pulse Rhythm Regular 11/01/21 07:30 Respiratory Rate 16 11/01/21 07:40 Respiratory Effort Non-Labored 11/01/21 07:30 Respiratory Depth Normal 11/01/21 07:30 Respiratory Pattern Normal 11/01/21 07:30 Blood Pressure 130/86 11/01/21 07:40 Blood Pressure Mean 80 10/30/21 03:30 Blood Pressure Position Supine 10/30/21 02:41 Pulse Oximetry 98 11/01/21 07:40 Oxygen Delivery Method Room Air 11/01/21 07:40 Oxygen Flow Rate 0 11/01/21 07:40 Pain Level 2 11/01/21 07:40 Comment 10/30/21 17:30 Intake & Output 10/31/21 11/01/21 11/01/21 23:59 11:59 23:59 Intake Total 1605 / 3125 15 Balance 1605 / 3125 Intake: IV 1405 / 2705 Oral 200 / 420 Other: Urine Color Yellow Yellow Urine Appearance Clear Clear Urine Odor Normal Normal Comment Unmeasured urine amount. Patient was in the bathroom when this nurse entered the room. Voiding Methods Toilet Toilet Data Completed and Pending Labs on day of discharge: Labs from last 24 hours 11/01/21 11/01/21 05:25 05:25 WBC 8.47 RBC 3.95 Hgb 12.2 Hct 37.8 MCV 95.7 H MCH 30.9 MCHC 32.3 RDW 13.0 Plt Count 271 MPV 9.4 Immature Gran % 0.2 Neutrophils % 62.6 Lymphocytes % 23.6 Monocytes % 5.9 Eosinophils % 7.2 Basophils % 0.5 Nucleated RBC % 0 Absolute Neutrophils 5.30 Absolute Lymphocytes 2.00 Absolute Monocytes 0.50 Absolute Eosinophils 0.61 Absolute Basophils 0.04 Sodium 141 Potassium 4.2 D Chloride 105 Carbon Dioxide 30.0 Anion Gap 6.0 BUN 6 L Creatinine 0.8 Estimated GFR/1.73 m2 >= 60.00 Glucose 113 H Calcium 8.7 Preliminary micro results at discharge 10/30/21 18:40 Blood Culture - Preliminary Blood NO GROWTH 24 HOURS 10/30/21 18:25 Blood Culture - Preliminary Blood NO GROWTH 24 HOURS PFSH All Active Problems (Updated 10/31/21 @ 19:48 by Consuelo Amato DO) Current use of estrogen therapy (Acute) Elevated lipids (Acute) Nongangrenous ischemic colitis (Acute) Hematochezia (Acute) Tinnitus, bilateral (Acute) Myofascial pain syndrome (Acute) B/L trapezius Headache, migraine (Acute) With menses (twice per month) & with aura (sparkly lights) Cervical spinal stenosis (Acute) Medical History Bilateral bunions Constipation Low back pain Sinusitis Surgical History c-sections 2 Family History Father Substance abuse Alcoholism Osteoarthritis Sister Crohn's disease Half-Brother Substance abuse Alcoholism Mental disorder Depression Maternal Grandfather Substance abuse Alcoholism CAD (coronary artery disease) Maternal Grandmother Neoplasm Liver Mother No problems noted. Half-Brother No problems noted. 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
--- NOTE | 2021-11-01 13:57 | PDOC.CMDIS ---
- If Service Date Differs Date of service: 11/01/21 Time of Service: 13:57 LACE Index Scoring Tool - Questions: Length of Stay (in days): 2 Acuity (Admit via E.D.?): Yes E.D. Visits: 1 - Answers: Total Score: 6 Risk of Readmission: Low Risk Care Management Discharge Reason for Hospitalization: Colitis Discharge Plan: Ilana is discharged home with no new services. She will follow up with her PCP and plan of care as directed. She is driven home by family via private vehicle. Patient/Family Education Needs: Review of discharge instructions, limitations, diet, medications, and follow up plan of care; discuss Ask Me Three and self management.
[2021-11-02 14:32] LABS: ANA Interpretation Positive (Negative); ANA Titer Pattern 1:160 Homogeneous; ANCA Interpretation Negative (Negative)
== END 2021-11-01 13:27 | disposition home or self-care (01) ==
LOC: ER 03:48 → MS 08:08
PROVIDERS: Admitting Provider Internal Medicine; Emergency Provider Student in an Organized Health Care Education/Training Program; PCP Nurse Practitioner; Visit Provider Surgery
PROC: 0DJD8ZZ Inspection of Lower Intestinal Tract, Via Natural or Artificial Opening Endoscopic (ICD-10-PCS; CPT 45330; principal; 2021-10-30 14:25)
DX: K55.031 Focal (segmental) acute (reversible) ischemia of large intestine (principal); K52.831 Collagenous colitis; K63.3 Ulcer of intestine; K92.1 Melena; R19.7 Diarrhea, unspecified; M48.02 Spinal stenosis, cervical region; G43.829 Menstrual migraine, not intractable, without status migrainosus; M79.18 Myalgia, other site
CPT/HCPCS: 45380; 36410; 36415; 80048; 80053; 83690; 84145; 86255; 86850; 86900; 86901; 87040; 87329; 87493; 87505; 87635; 88305; 96361; 96365; 96375; 96376; 99285; 74177; 83605; 83993; 85025; 85610; 85730; 86038; 86140; 87177; 99219; 99225; G0378; J0131; J0744; J2270; J2405; J2704; J3490

== ENCOUNTER 2021-11-12 03:02 | Outpatient (CLI) | payer BC, SELFPAY ==
--- NOTE | 2021-11-12 06:15 | DI.CT_ITS ---
Exam(s) CT ABDOMEN PELVIS CTA EXAM: CT ABDOMEN PELVIS CTA CLINICAL HISTORY: ischemic ulcer transverse colon,colitis,elevated lipids,k55.9. TECHNIQUE: Imaging Protocol: Axial CT angiography was performed with multi-slice acquisition and m ulti-planar and/or 3D reconstructions. CONTRAST MATERIAL: Intravenous: Omnipaque 350 Contrast volume:100 ml Oral: yes / COMPARISON: CT CT ABDOMEN PELVIS W from 10/30/2021 FINDINGS: Vascular Structures: No significant atherosclerotic changes are noted. Celiac [place]/SMA: No evidence of stenosis. Renal Arteries: No evidence of stenosis. There is a single renal artery perfusing each kidney. No vas cular beading. Aorta: No aneurysm. No dissection. Pelvis: Iliac Arteries: No evidence of stenosis. Common Femoral Arteries: No evidence of stenosis. Soft Tissues: Lung bases:Normal. Liver: Normal density. No measurable mass. Gallbladder and biliary tract: No radiodense calculus or dilation. Pancreas: Normal density, no abnormal calcifications or inflammatory process. Spleen: Normal. Kidneys: Normal size, contour and axis. No radiodense stones or obstructive uropathy. No masses seen. Adrenal glands: No masses seen. Bladder: Symmetric distention, no gross wall thickening. Bowel: No obstruction or bowel wall thickening. The distal small bowel through the splenic flexure of the colon are well opacified with oral contrast. The more distal colon is decompressed but otherwis e unremarkable. There is been resolution of previously noted inflammatory changes involving the clayton sverse colon. The there is an apparent mobile mesentery with the cecum projecting arm on the left si de of the abdomen. There is no evidence of volvulus. The stomach and small bowel are unremarkable. There is no free air or free fluid. Peritoneal cavity: No ascites, collection or mesenteric inflammatory response. Reproductive: Retrover rasheed uterus, ovaries unremarkable. Bones: Mild degenerative changes in the spine. Lymph nodes: Within normal limits. IMPRESSION: Normal CT Angiogram of the Abdomen. Resolution of previously noted colitis. No new abnormalities. RADIATION DOSE DELIVERED: 1,236.3mGy.cm Total DLP DATA REPOSITORY: All CT scans at this facility are submitted to the National Radiology Data Registry (NRDR) Dose Index Registry (DIR) with the [employer] (ACR). RADIATION OPTIMIZATION: All CT scans at this facility use at least one of these dose optimization te chniques: automated exposure control; mA and/or kV adjustment per patient size (includes targeted exa ms where dose is matched to clinical indication); or iterative reconstruction.
[2021-11-12] MEDS: Omnipaque 350 MG/ML 50 ML BTL PO (07:29)
[2021-11-12] MEDS: Breeza Beverage 473 ML BTL PO ×2 (07:30→07:32)
[2021-11-12] MEDS: Omnipaque 350 MG/ML 100 ML BTL IV (08:35)
[2021-11-12 09:00] LABS: C-Reactive Protein 0.11 mg/dL (0.0-0.3); Calculated LDL 152 mg/dL (<100); Cholesterol 249 mg/dL (<200); HDL Cholesterol 79 mg/dL (40-60); TSH (W/Ref FT4) 1.05 uIU/mL (0.36-3.74); Triglyceride 91 mg/dL (<150)
== END 2021-11-12 03:22 ==
PROVIDERS: PCP Nurse Practitioner; Visit Provider Surgery
DX: K55.9 Vascular disorder of intestine, unspecified; E78.5 Hyperlipidemia, unspecified; Z87.891 Personal history of nicotine dependence; K52.831 Collagenous colitis; Z79.899 Other long term (current) drug therapy
CPT/HCPCS: 80061; 74174; 84443; 86140; J3490; Q9967

== ENCOUNTER 2022-03-03 11:30 | Outpatient (CLI) | payer BC, SELFPAY ==
--- NOTE | 2022-03-03 11:15 | DI.RAD_ITS ---
Exam(s) XR SHOULDER RT COMPLETE 2+V EXAM: XR SHOULDER RT COMPLETE 2+V CLINICAL HISTORY: right shoulder pain. TECHNIQUE: 2D digital imaging was performed. Five views. COMPARISON: No exams were available for comparison FINDINGS: BONES: No acute fracture is present. No bony destructive lesion is seen. JOINTS: No dislocation present. Minimal spurring at the glenoid. Joint spaces well maintained. No significant AC joint spurring. SOFT TISSUE: Small calcifications adjacent to greater tuberosity could indicate calcific tendinosis. IMPRESSION: Findings consistent with mild calcific tendinosis. Minimal glenohumeral joint degenerative changes. DATA REPOSITORY: RADIATION DOSE DELIVERED:
== END 2022-03-03 11:31 | disposition home or self-care (01) ==
LOC: DIORS 11:31
PROVIDERS: PCP Nurse Practitioner; Referring Provider Nurse Practitioner; Visit Provider Student in an Organized Health Care Education/Training Program
DX: M25.511 Pain in right shoulder (principal); M75.31 Calcific tendinitis of right shoulder
CPT/HCPCS: 73030

== ENCOUNTER 2022-04-20 09:54 | Day surgery (SDC) | payer BC, SELFPAY ==
--- NOTE | 2022-04-19 18:24 | HPE_ITS ---
Date of service: 04/20/22 Assessment and Plan Assessment and plan (1) Nongangrenous ischemic colitis: Status: Acute (2) Collagenous colitis: Status: Acute Assessment and plan: Informed consent is obtained for the procedural (explained in simple layman's terms that the pt. and/or family could understand) explaining risks vs benefits and alternatives to the procedure and consequences if we do not do the procedure and need/rational for the procedure. Risks include but are not limited to: bleeding, infection, perforation of esophagus, stomach, colon, small intestines, bronchus or trachea, or PTX. This would necessitate emergency surgery to repair the damage w/ possible ostomy; and other associated complications w/ the required surgery. Also complications of anesthesia including aspiration, DE/CVA/. History of Present Illness Narrative: She is off of steriods and bowels are regular.? She is Taking fiber.? Her stools Well formed, brown/no bled.? no pain/bloating.? She is due for her 10-year colonoscopy follow-up.? She did not have a colonoscopy back in 10/20, only a flex sig for biopsies.? We will go ahead and ahead and schedule her for a complete colonoscopy.? Did discuss her what she could expect during the procedure post procedurally, recovery time and risks.? And patient does want to proceed with procedure. She has no family history of colon cancer or colon problems.? She has not had any polyps or abnormal colonoscopies in the past.? She had no problems with anesthesia.? She has never had a heart attack or stroke. Patient is here today on 04/20 for follow-up colonoscopy from her episode of ischemic colitis in She completed bowel prep. She is having clear yellow discharge today. She has had no rectal bleeding. She is not currently having any abdominal pain or nausea. She is not having any chest pain/chest pressure or shortness of breath. She has not had any productive cough or fevers or you are eye type symptoms. She has not had any changes in her medication or health status since I saw her in February. She is stable for colonoscopy today. Patient did have a fall and hurt her right shoulder. She is undergoing physical therapy for this right now. She has started on gabapentin. Review of Systems All systems reviewed & are unremarkable except as noted in HPI and below PFSH All Active Problems Cervical spinal stenosis (Acute) [facility] consult on 02/22/22. Headache, migraine (Acute) With menses (twice per month) & with aura (sparkly lights) Myofascial pain syndrome (Acute) B/L trapezius Tinnitus, bilateral (Acute) Nongangrenous ischemic colitis (Acute) Elevated lipids (Acute) Current use of estrogen therapy (Acute) Collagenous colitis (Acute) Former smoker (Acute) Right rotator cuff tear (Acute) Medical History Bilateral bunions Constipation Low back pain Shoulder pain, right Right rotator cuff pain. Sinusitis Surgical History c-sections 2 History of colonoscopy Family History Father Substance abuse Alcoholism Osteoarthritis Sister Crohn's disease Half-Brother Substance abuse Alcoholism Mental disorder Depression Maternal Grandfather Substance abuse Alcoholism CAD (coronary artery disease) Maternal Grandmother Neoplasm Liver Mother No problems noted. Half-Brother No problems noted. 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 [employer] Current gender identity: female What is your relationship status?: living with partner Panel score (0-1 are the most socially isolated patients): 1 What type of physical activity do you participate in: regular exercise Duration: 45-60 minutes/day Frequency: 3-4 times per week Seatbelt use: always Working smoke detector in home: Yes Fire extinguisher in home: Yes Carbon monox detector in home: Yes Do you feel safe at home: Yes Do you feel safe in your relationship?: Yes History History 2 Para Hx # Term Pregnancies 2 Multiple births Hx # Pregnancies Ectopic pregnancies AB induced Hx Number of Living Children AB spontaneous Meds Allergies and Home Medications Allergies Allergy/AdvReac Type Severity Reaction Status Date / Time No Known Drug Allergies Allergy Verified 04/20/22 10:14 Home Medications Medication Instructions Recorded Confirmed Type magnesium citrate 100 mg tablet 400 mg PO HS 01/04/19 04/20/22 History cholecalciferol (vitamin D3) 10 400 unit PO DAILY 08/13/21 04/20/22 History mcg (400 unit) capsule estradiol 0.5 mg tablet 0.5 mg PO DAILY #90 tabs 08/13/21 04/20/22 Rx progesterone micronized 100 mg 100 mg PO DAILY #90 caps 08/13/21 04/20/22 Rx capsule (Prometrium) zinc 50 mg tablet 50 mg PO DAILY PRN 08/13/21 04/20/22 History lorazepam 0.5 mg tablet 0.5 mg PO DAILY PRN PRN anxiety 10/30/21 04/20/22 History for flights vitamin B comp and C no.3 15 mg-10 1 cap PO DAILY 11/12/21 04/20/22 History mg-50 mg-5 mg-300 mg capsule (B Complex Plus Vitamin C) glucosamine sulfate 500 mg tablet 500 mg PO BID 12/31/21 04/20/22 History (Glucosamine) gabapentin 100 mg capsule 100 mg PO BID 03/26/22 04/20/22 History gabapentin 300 mg capsule See Rx Instructions PO QHS 03/26/22 04/20/22 History Exam Narrative Exam Narrative: PHYSICAL EXAM GENERAL APPEARANCE: Alert, healthy appearance, oriented, in no acute distress SKIN: No rashes.? No breakdown HYDRATION: Well hydrated HEAD, EYES, EARS, NECK, THROAT: Head is normocephalic, pupils equal, round, reactive to light and accommodation, ocular movement intact, sclera clear and no jaundice. ?Dentition intact. No sore throat.? No jaw pain. NECK: Supple, Trachea midline. No JVD. LUNGS: normal respiration/nl chest excursion. ?Clear to auscultation B/l no R/R/W ?HEART: Regular rate and rhythm, EXTREMITY: No edema or cyanosis? no leg pain, redness, swelling.? ABDOMEN: non tender to palpation, no masses or distention, no hernias. Normal bowel sounds NEURO: no focal neuro deficits.
--- NOTE | 2022-04-19 18:31 | W.COLOREPORT ---
Colonoscopy Report Date of procedure: 04/20/22 Pre-op diagnosis general: Collagenous colitis/ischemic colitis Post-op diagnosis procedure note: other (normal ) Surgeon: Consuelo Amato Anesthesia Type: General:No Airway Estimated blood loss (mL): 1 Pathology: none sent Complications: None Disposition: same day Prep: Miralax/Dulcolax Retraction Time: 11 Procedure Description: After informed consent was obtained the patient was taken to the procedure room and placed in a left decubitous position. Monitors were applied and a time out was done. The patients name, date of , procedure, allergies to medications and metal in their body was reviewed. The patient was then sedated. Once sedated and comfortable a rectal exam was done. External exam was normal. She has a small 5 mm flesh-colored elevated skin lesion at approximately the 9 o'clock position. This is separate from the anus. internal exam revealed a normal sphincter tone and no palpable masses. The scope was then introduced and retrofelexed. No internal hemorrhoids were identified. The scope was then advanced to the cecum w/moderate difficulty. The colon is very tortuous and there is a lot of looping in the sigmoid colon. Pressure is used to stabilize the sigmoid. The mucosa appears pink and healthy. There are no diverticula. At 60 cm she has a small flat less than 5 mm area that could represent a polyp. This was removed with a cold biopsy forcep. Biopsies were taken at :the cecum, 80 cm, 60 cm, 40 cm in the rectum. All specimens are retrieved and no bleeding is noted. TI and appendiceal orifice were identified. The prep was the prep is a BB PS2 to in all segments for a total 6. Colon was lavaged with a liter of saline. The scope was then slowly retracted over 11 minutes back into the rectum. . The scope was removed and the patient was woken up and taken back to Same day surgery in stable condition. The patient tolerated the procedure well and there were no immediate complications. Follow up: The patient should follow up in 10 years unless they develop changes in bowel habits or other new gastrointestinal complaints. The patient will be sent a letter with a copy of her biopsies.
--- NOTE | 2022-04-19 18:32 | W.PM.DSUDISC ---
Discharge Plan Disposition Patient Disposition: HOME Condition: Good Discharge Details Reason For Visit: Colon scope Attending Provider: Consuelo Amato Primary Care Provider: Camelia Crockett Home Meds and New Rx's Prescriptions: No Action cholecalciferol (vitamin D3) 10 mcg (400 unit) capsule 400 unit PO DAILY Label Comments: Pt unsure of dose zinc 50 mg tablet 50 mg PO DAILY PRN Label Comments: pt unsure of dose estradiol 0.5 mg tablet 0.5 mg PO DAILY Qty: 90 3RF progesterone micronized [Prometrium] 100 mg capsule 100 mg PO DAILY Qty: 90 3RF B Complex Plus Vitamin C 28-05-26-5-300 mg capsule 1 cap PO DAILY Rx Instructions: give with food (meal/snack) glucosamine sulfate [Glucosamine] 500 mg tablet 500 mg PO BID Rx Instructions: administer with meals magnesium citrate 100 mg tablet 400 mg PO HS Rx Instructions: Take 2 tablets by mouth at bedtime. gabapentin 300 mg capsule See Rx Instructions PO QHS Label Comments: Per patient 600mg daily at HS. Rx Instructions: orally every day at bedtime; 02/23/22- [facility] 300-600mg at bedtime. gabapentin 100 mg capsule 100 mg PO BID Rx Instructions: per [facility] 03/25/22 added to 300 mg capsule cgc lorazepam 0.5 mg tablet 0.5 mg PO DAILY PRN PRN (Reason: anxiety for flights) Discharge Instructions Additional Instructions: DSU Colonoscopy Post-Op Instructions Instructions for Everyone who is given Anesthesia: For your safety, please do the following for the next twenty-four (24) hours: *Do Not operate a motor vehicle (car, truck, motorcycle, etc.) *Do Not drink alcoholic beverages or use any recreational drugs for the first 24 hours or while taking pain medications. The medications in your body may have a reaction that can be dangerous. *Do Not make any important decisions or sign any important papers. Findings: Essentially normal. Biopsies were taken today. My office will send a letter with results in 2 to 3 weeks time. Follow up: Most likely in 10 years time, depending on results of biopsies. 1. No lifting over 20 pounds or strenuous activity for the first 24 hours after your procedure. After 24 hours there are no restrictions on your activity but you may feel fatigued for a few days. 2. After you arrive home you may have a light meal and return to your normal diet as you can tolerate it without feeling sick to your stomach. 3. You may have a bloated, gaseous feeling in your belly (abdomen) after a colonoscopy. Passing gas and belching will help. Walking or lying down on your left side with your knees flexed may relieve the discomfort. Call the office at [phone] (Office) or [phone] (Hospital) right away if you notice any of the following: a.Vomiting of blood or ?coffee ground stools?. b.Rectal bleeding 1Tbsp, blood clots or continuous bleeding. c.Severe belly (abdominal) pain. d.A hard distended belly (abdomen) and an inability to pass gas. 4. Please don?t expect to have a normal BM (bowel movement) for 2-3 days after your procedure. 5. If there are questions regarding the findings of your procedure, please contact your doctor 6. If you are unable to contact your doctor with a problem, contact the hospital at [phone]. 7. Continue all your regular medications unless directed otherwise. I understand the above instructions and have no questions. Signature of Patient or Adult Escort Name of Responsible Adult Escort Signature of Nurse Date/Time Activity:: See above Diet:: See above Discharge Orders Discharge Orders: Discharge Order (Routine); Ordered 04/19/22 Ordered By: Consuelo Amato DS: Diagnosis Discharge Diagnosis (1) Nongangrenous ischemic colitis: Status: Acute (2) Collagenous colitis: Status: Acute
[2022-04-20 10:05] VITALS: BP 123/94; PULSE 70; RESP 19; TEMP 36.6; O2SAT 96
[2022-04-20] MEDS: Lactated Ringers 1,000 ML 80 ML IV (10:27)
--- NOTE | 2022-04-20 12:23 | W.ANESPRE ---
General Info Date of Service Date Performed: 04/20/22 Height: 5 ft 6 in Weight: 75.3 kg Body Mass Index (BMI): 26.8 Surgical Procedure: Operation Date: 04/20/22 12:20 Proposed Procedure Side Surgeon p Colonoscopy w/Biopsy Consuelo Amato, Meds Allergies and Home Medications Allergies Allergy/AdvReac Type Severity Reaction Status Date / Time No Known Drug Allergies Allergy Verified 04/20/22 10:14 Home Medication Medication Instructions Recorded magnesium citrate 100 mg tablet 400 mg PO HS 01/04/19 cholecalciferol (vitamin D3) 10 400 unit PO DAILY 08/13/21 mcg (400 unit) capsule estradiol 0.5 mg tablet 0.5 mg PO DAILY #90 tabs 08/13/21 progesterone micronized 100 mg 100 mg PO DAILY #90 caps 08/13/21 capsule (Prometrium) zinc 50 mg tablet 50 mg PO DAILY PRN 08/13/21 lorazepam 0.5 mg tablet 0.5 mg PO DAILY PRN PRN anxiety 10/30/21 for flights vitamin B comp and C no.3 15 mg-10 1 cap PO DAILY 11/12/21 mg-50 mg-5 mg-300 mg capsule (B Complex Plus Vitamin C) glucosamine sulfate 500 mg tablet 500 mg PO BID 12/31/21 (Glucosamine) gabapentin 100 mg capsule 100 mg PO BID 03/26/22 gabapentin 300 mg capsule See Rx Instructions PO QHS 03/26/22 Current Visit Medications: Current Medications Generic Name Dose Route Start Last Admin Trade Name Freq PRN Reason Stop Dose Admin Hyoscyamine Sulfate 0.125 mg 04/19/22 10:31 Hyoscyamine 0.125 Mg Sl/Oral/Chew SL DIRECTED PRN Ringer's Solution 1,000 mls @ 80 mls/hr 04/20/22 06:00 04/20/22 10:27 IV 05/19/22 23:59 80 mls/hr INFUSION CATALINO Administration IV Miscellaneous Supplies 1 each 04/20/22 06:00 Iv Access IV 05/19/22 23:59 DIRECTED CATALINO Ondansetron HCl 4 mg 04/19/22 10:31 Ondansetron 4 Mg/2 Ml Vial IVP Q4H PRN PRN Nausea / Vomiting Sodium Chloride 0 ml 04/20/22 06:00 Normal Saline Flush 10 Ml Syr IV 05/19/22 23:59 PRN PRN Sodium Chloride 0 ml 04/20/22 06:00 Normal Saline 10 Ml Vial IJ 05/19/22 23:59 DIRECTED PRN Sterile Water 0 ml 04/20/22 06:00 Water,Injection,Sterile 10 Ml Vial IJ 05/19/22 23:59 DIRECTED PRN PFSH Active Problems Active Problems: Problem Status Onset Code Cervical spinal stenosis M48.02 Headache, migraine G43.909 Myofascial pain syndrome M79.1 Tinnitus, bilateral H93.13 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 Sinusitis Surgical History Surgical History c-sections 2 History of colonoscopy Tobacco Smoking/Tobacco Use Status: Former Tobacco Use Alcohol Alcohol Intake: current Alcohol intake frequency: a few times a week Alcohol type: wine Substance Use Substance use: Never Substance use type: does not use Prental History History 2 Para Hx # Term Pregnancies 2 Multiple births Hx # Pregnancies Ectopic pregnancies AB induced Hx Number of Living Children AB spontaneous Vital Signs and Lab Results Vital Signs Most Recent Vital Signs in EMR: Most Recent Vital Signs Temp Pulse Resp BP Pulse Ox 36.6 C 70 19 123/94 H 96 04/20/22 10:05 04/20/22 10:05 04/20/22 10:05 04/20/22 10:05 04/20/22 10:05 Lab Results Blood Type / Crossmatch: No Data to Display Complete Blood Count: No Data to Display Complete Metabolic Panel: No Data to Display Liver Function Panel: No Data to Display Coagulation Panel: No Data to Display Cardiac Panel: No Data to Display Arterial Blood Gas: No Data to Display Venous Blood Gas: No Data to Display Pancreas Panel: No Data to Display Thyroid Panel: No Data to Display Infectious Disease: No Data to Display Blood Cultures: No Data to Display Toxicology Panel: No Data to Display Anesthesia Assessment and Plan Anesthesia History Personal History: No History of Anesthesia Complications Family History: No Family History of Anesthesia Complications Exercise Tolerance Exercise Tolerance: Metabolic Equivalents>4 Pertinent Negatives Pertinent Negatives: No Symptoms of GERD, No Major Cardiovascular Symptoms or Complaints, No Major Pulmonary Symptoms or Complaints and No History of CVA/TIA Cardiac & Pulmonary Exam Cardiac Exam: Normal S1/S2 Heart Sounds Pulmonary Exam: Clear Bilateral Breath Sounds Implantable Cardiac Device Does patient have a Pacemaker or an ICD?: No Airway Exam Known Difficult Airway: No Mallampati Class: 2 Mouth Opening: Normal (> 3cm) Thyromental Distance: Greater than 3 cm Neck Range of Motion: Full ROM (Some mild stiffness but able to move without difficulty) Neck Circumference: Normal Teeth Condition: Normal Dentition ASA Classification ASA Score: ASA 2 Emergency Case?: No NPO Status NPO Status: NPO Clears >2 hours, Solids >8 hours Anesthesia Plan Resuscitation Status: Full Code Anesthesia Technique: General Anesthesia Airway Planned: Natural Airway Monitors Used: Standard Monitors
[2022-04-20 12:24] VITALS: BMI 26.8
--- NOTE | 2022-04-20 13:00 | BOWEL_PTH ---
PATIENT: Ilana Lund LOC: [facility] U#:[id number] AGE/SX: 61/F ROOM: RE04/20/[address]: Consuelo Amato : 1960 BED: DIS: 04/20/2022 SPEC #: [id number] RECD: 04/20/22 16:46 STATUS: FELIPE REBenja #: [id number] DANICA: 04/20/22 13:[address]: Consuelo Amato DEPT: Surgical Specimen RECD BY: Leti Dunn ENTERED: 04/20/22 16:47 SP TYPE: Bowel OTHR DR: Camelia Crockett APRN Tissues: 1 - BIOPSY BOWEL 2 - BIOPSY BOWEL 3 - BIOPSY BOWEL 4 - BIOPSY BOWEL 5 - BIOPSY BOWEL 6 - BIOPSY BOWEL Procedures: GROSS AND MICRO LEVEL 4 Comments: [id number]
[2022-04-20 13:27] VITALS: BP 133/84; PULSE 61; RESP 16; TEMP 36.4; O2SAT 99
--- NOTE | 2022-04-20 13:40 | W.ANESPOSTOP ---
Postoperative Evaluation Date, Time and Location Date Performed: 04/20/22 Time Performed: 13:40 Patient Location: Day Surgery Unit Vital Signs Most Recent Imported Vital Signs: Most Recent Vital Signs Temp Pulse Resp BP Pulse Ox 36.4 C L 61 16 133/84 99 04/20/22 13:27 04/20/22 13:27 04/20/22 13:27 04/20/22 13:27 04/20/22 13:27 Assessment Mental Status: Awake (Alert & Oriented to Patient Baseline) Airway and Respiratory Function: Patent airway with normal (patient baseline) respiratory exam Cardiovascular Function: Hemodynamically Stable Hydration Status: Adequately Hydrated Nausea & Vomiting: No Nausea or Vomiting Pain: Pt. Denies Any Pain Peripheral Nerve Block: Patient did not receive a nerve block
[2022-04-20 14:02] VITALS: BP 113/78; PULSE 61; RESP 18; TEMP 36.4; O2SAT 100
== END 2022-04-20 14:26 | disposition home or self-care (01) ==
PROVIDERS: PCP Nurse Practitioner; Visit Provider Surgery
PROC: 0DJD8ZZ Inspection of Lower Intestinal Tract, Via Natural or Artificial Opening Endoscopic (ICD-10-PCS; CPT 45378; principal; 2022-04-20 12:15)
DX: K52.831 Collagenous colitis (principal); E78.5 Hyperlipidemia, unspecified; Z87.891 Personal history of nicotine dependence; K55.9 Vascular disorder of intestine, unspecified; M79.7 Fibromyalgia; K63.89 Other specified diseases of intestine
CPT/HCPCS: 45380; 88305

== ENCOUNTER → 2022-05-20 00:24 | Outpatient (CLI) | payer BC, SELFPAY ==
--- OUTSIDE RECORDS SUMMARY | 2022-05-20 00:26 | XMS_ITS | Encounter Summary ---
:1960 [place] [address] Care Team Providers Name Role Phone Edna Woo MD Primary Care Provider [phone] Encounter Details Date Type Department Care Team Description 11/19/2011 Hospital Encounter Radiology Library at [facility], Fabi [place], Pain [facility] [place] [address] [facility] [phone] [place], [place] [address] (Wo rk) Social History Tobacco Use Types Packs/Day Years Used Date Never Assessed Sex Assigned at Date Recorded Not on file documented as of this encounter Medications at Time of Discharge Medication Sig Dispensed Refills Start Date End Date FROVATRIPTAN SUCCINATE 0 09/08/2010 (FROVA ORAL) Feverfew 200 mg Cap 0 09/08/201012/01 MAGNESIUM CHLORIDE ORAL 0 09/08/2010 0 12/01/2016 RIBOFLAVIN ORAL 0 09/08/2010 7 CYANOCOBALAMIN/VIT BCOMP&C 0 0 12/01/2016 (VIT B COMPLEX WITH B12 & C INJ) GLUCOSAMINE HCL/CHONDRO PITTS 0 0 12/01/2016 A (GLUCOSAMINE-CHONDROITIN ORAL) fluconazole (DIFLUCAN) 150 150 MG = 1 0 0 12/01/2016 mg tablet Tablet(s), PO, X 1 documented as of this encounter Plan of Treatment Upcoming Encounters Date Type Specialty Care Team Description 05/24/2022 Office Visit [facility] Col luciana Alonzo, HYDROELECTRIC PRODUCTION MANAGER [facility] PAIN MEDICINE [place], [place] [address] (Wo rk) documented as of this encounter Procedures Procedure Name Priority Date/Time Associated Diagnosis Comme nts FILM LIBRARY Routine 11/19/2011 12:00 AM Pain Results for this STORAGE ONLY DX EST procedure ar e in SPINE the results section. documented in this encounter Results Film Library- Storage Only DX Spine (11/19/2011 12:00 AM EST) Specimen (Source) Anatomical Location Collection Method / Collectio n Time Received Time / Laterality Volume Narrative [facility] - 12/02/2016 3:13 PM EST This exam is for storage only and is aut o-finalizing. Niels Green MD IMG FILM LIBRARY ORDERABLES Performing Organization Address City/State/ZIP Code Phon e Number [place], [place] documented in this encounter Visit Diagnoses Diagnosis Pain Generalized pain documented in this encounter Care Teams Expediter Service Order Relationship Specialty Start Date End Date Edna Woo MD PCP - General 09/22/10 02/03/22 [address] [place] [address] documented as of this encounter
--- OUTSIDE RECORDS SUMMARY | 2022-05-20 00:26 | XMS_ITS | Encounter Summary ---
:1960 Author Organization [facility] [place] [address] Care Team Providers Name Role Phone Camelia Crockett APRN Primary Care Provider Encounter Details Date Type Department Care Team Description 03/25/2022 TH Visit [facility] Hiral Alonzo C ervicalgia (TeleHealth) at [facility] [place] [address] PAIN MEDICINE [phone] [place], [place] [address] (Wo rk) Social History Tobacco Use Types Packs/Day Years Used Date Former Smoker Smokeless Tobacco: Never Used Comments: quit in 2003 Sex Assigned at Date Recorded Not on file documented as of this encounter Progress Notes Hiral Alonzo APRN - 03/25/2022 11:45 AM EDT [facility] Date of Consultation: March 24, 2022 Referring Provider: Camelia Crockett Reason for request of consultation: She is wondering about a massage, Chief Complaint: neck pain, That radiates to deltoids HDZ Wraps from neck to head Updated interval history: 03/25/2022: I had a telehealth visit with Him Today. She Has Begun Physical Therapy for Her Shoulder. She Has Seen an Orthopedist but Her MRI for Her Shoulder Has Been Denied until She Is Completed 4 Weeks of Physical Therapy and She Is at 3 Weeks Now. Her Orthopedist Does Consider Our Feel Pretty Strongly That There Is Something Sinan To a Rotator Cuff Injury Likely Happening in Her Right Shoulder but She Also Has Some Symptoms in Her Left Shoulder When She Has Prolonged Pain. Her Physical Therapist Is Also Addressing Her Neck in the Edith Method with Overpressure and Traction. The Gabapentin She Is Taking at Night Is Helping Her Sleep at Night. She Sometimes Takes 300 Mg and Sometimes 600 Mg. We Also Discu ssed Perhaps Adding This during the Day. She Is Going to Be off on Vacation for a Couple of Weeks. She Did Consider Trialing the Diclofenac Gel but Read the Insert and Was Concerned. Her Orthopedist and Her County Health Officer Were Both Okay with Her Using It However. History of Present Illness: Ms. Lund is a 61 y.o. year-old female who presents to the pain clinic Who has previously seen Mr Hassan here in the Spine Center she reports that after a series of epidural steroid injections and physical therapy with Edith type her symptoms improved. She reports that she has had symptoms starting around the beginning of the year with some weakness and numbness in her right shoulder then progressing to the left. The perception of weakness and pain is in the deltoid area but can radiate down into the thumbs. She has had 2 Medrol Dosepaks since last fall the first was helpful and the second wasnot. She also had a signs and symptoms of weird cheilitis since October and is no longer taking any Advil, NSAIDs, aspirin. She is currently using ice packs, heat, CBD, topical ointments. Her right armis worse but she feels as if she actually has a shoulder injury on top of the neck recurrent symptoms because this shoulder on the right is extremely painful with abduction and flexion. She has an upcoming appointment with her belt operator and an upcoming appointment with an orthopedist locally this week. 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 She is to continue these exercises. She also would like to see local physical therapist for some massage. She feels as if her neck is tight. She is hoping that she can have a repeat MRI and go forward with a repeat series of steroid injections in her neck. PAIN ASSESSMENT: Description: Posterior achy neck pain with radiation to the arms also right shouldler pain makes that side worse Weakness, numbness, tingling: feels like has left motor racer strength Other associated symptoms: no Alleviating factors:ice or heat relieves neck Aggravating factors: right shoulder by movement ( abduction) psoture, typing, good ergonomics No flowsheet data found. 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 Allergies & Adverse Reactions: Nsaids (non-steroidal anti-inflammatory drug) Problem List: There is no problem list on file for this patient. Social History: Social History Socioeconomic History ??? Marital status: Single Spouse name: Not on file ??? Number of children: Not on file ??? Years of education: Not on file ??? Highest education level: Not on file Occupational History ??? Not on file Tobacco Use ??? Smoking status: Former Smoker ??? Smokeless tobacco: Never Used ??? Tobacco comment: quit in 2003 Substance and Sexual Activity ??? Alcohol use: Not on file ??? Drug use: Not on file ??? Sexual activity: Not on file Other Topics Concern ??? Not on file Social History Narrative ??? Not on file Social Determinants of Health Financial Resource Strain: Not on file Food Insecurity: Not on file Transportation Needs: Not on file Physical Activity: Not on file Housing Stability: Not on file Family History No family history on file. Past Medical History: No past medical history on file. Past Surgical History: No past surgical history on file. Review of Systems: Denies fever, chills, weight loss, SOB, abdominal pain, leg weakness/numbnes, arm weakness/numbness, bowel or bladder incontinence, balance issues Reduced ROM right shoulder RISK ASSESSMENT: Smoking: former Alcohol: less than daily Physical Exam: No data found. There is no physical exam today as this was a telehealth visit Imaging & Other Studies: Her last MRI was done in 2017 and reveals the following: EXAMINATION: MRI CERVICAL SPINE WO CONTRAST (GENERIC) ?? CLINICAL HISTORY: Neck and left arm pain, prior MRI w/ C5-C6, C6-C7 spondylosis ?? TECHNIQUE: MRI cervical spine noncontrast ?? COMPARISON: 11/19/2011 ?? FINDINGS: There is disc degenerative change at C5-6 and C6-7 with disc space narrowing, endplate proliferative and reactive changes greater at the C5-6 level. This is similar in distribution and extent to prior exam. Vertebral bodies are normal in height. There is similar pattern of anterolisthesis of C3 on C4. There is mild retrolisthesis of C5 on C6 also similar to prior exam. ? No aggressive marrow lesions. Greatest cervical junction is within normal limits. Cord signal and morphology is normal. ?? Findings at specific levels: C2-3: No disc protrusion central stenosis or foraminal narrowing. There is facet arthropathy greater on the left. ?? C3-4: Minimal anterolisthesis. No disc protrusion or central stenosis. There is uncovertebral joint hypertrophic change and facet arthropathy with moderate right and severe left foraminal narrowing. ?? C4-5: No disc protrusion or central stenosis. Moderate right and mild left foraminal narrowing due to uncovertebral joint and facet arthropathy. ?? C5-6: There is retrolisthesis and posterior disc osteophyte complex with posterior bony ridge. Mild overall canal stenosis present. There is moderate right and severe left foraminal narrowing. ?? C6-7: There is a posterior disc osteophyte complex with posterior bony ridge. Moderate canal stenosis present. There is moderate bilateral foraminal narrowing. ?? C7-T1: No disc protrusion central stenosis or foraminal narrowing. ?? There is heterogeneous appearance of the thyroid gland especially on the right. Small nodules seen on the right measuring less than a centimeter. Question multinodular disease. ?? IMPRESSION Changes of cervical spondylosis greatest at C5-6 and C6-7 similar in pattern and extent to prior exam. ?? Assessment: Ms. Lund is a 61 y.o. year-old female who is following up with me via telehealth for discussion ofright shoulder pain more so than left shoulder pain. She also gets some cramping in her hands. We have discussed adding 100 mg once or twice a day during the day of the gabapentin to see if that will help her with some of her symptoms. We have agreed to wait until after she has her shoulder MRI and consultation again with the orthopedic surgeon to see if he does think there is a rotator cuff injury and if so how much of her pain improves with treatment of that. In the meantime she will continue withher physical therapy for her neck and if her symptoms do not sufficiently improve on both arms then we can consider an MRI of her cervical spine to see if there is pressure on a nerve causing some of her symptoms and if so if an injection would be helpful. The patient is going to call after her MRI and consultation with the surgeon in orthopedics and will schedule follow-up that way but she is instruc rasheed to call to just give a heads up about the gabapentin and how its helping her pain as well as if she is not improved sufficiently after seeing the orthopedic surgeon and we can schedule a follow-up for her. We did talk about expectations and how important that was to keep her expectations of being pain-free in line with what might be realistically possible. She is going to try the increased gabapentin while she is on vacation because she does experience some drowsiness when she takes 2 tablets cintia time. Thank you Dr. Crockett for allowing my participation in Ilana Blanco's care. Hiral Alonzo, MS, CUSTOMER SERVICE SUPERVISOR-BC, ESTEPHANIE Nurse practitioner Pain management [facility] documented in this encounter Plan of Treatment Upcoming Encounters Date Type Specialty Care Team Description 05/24/2022 Office Visit [facility] Col luciana Alonzo APRN [facility] PAIN MEDICINE [place], [place] [address] (Wo rk) documented as of this encounter Visit Diagnoses Diagnosis Cervicalgia documented in this encounter Care Teams Binder Chainstitch Relationship Specialty Start Date End Date Camelia Crockett APRN PCP - General Internal Medicine 02/04/[address] [place] [address] documented as of this encounter
--- OUTSIDE RECORDS SUMMARY | 2022-05-20 00:26 | XMS_ITS | Encounter Summary ---
:1960 [place] [address] Care Team Providers Name Role Phone Edna Woo MD Primary Care Provider [phone] Encounter Details Date Type Department Care Team Description 09/08/2010 Orders Only Lab [facility] Radha Chris [address] [address] [place] [address] [phone] Social History Tobacco Use Types Packs/Day Years Used Date Never Assessed Sex Assigned at Date Recorded Not on file documented as of this encounter Plan of Treatment Upcoming Encounters Date Type Specialty Care Team Description 05/24/2022 Office Visit [facility] Col luciana Alonzo, DOCUMENT SCANNER [facility] ER DR PAIN MEDICINE [place], [place] [address] (Wo rk) documented as of this encounter Procedures Procedure Name Priority Date/Time Associated Diagnosis Comme nts SHERIFF DETECTIVE CYTOLOGY FINAL Routine 09/08/2010 9:45 AM Res ults for this REPORT EST procedure are i n the results section. documented in this encounter Results PATHOLOGY SHERIFF DETECTIVE CYTOLOGY FINAL REPORT (09/08/2010 9:45 AM EST) Component Value Ref Test Analysis Performed At [facility] Range Method Time Signature Unit Assistant Cytology CERNER Final Report ? [facility] ? Provider: ?? RADHA MASTERSON ?Pt. Name: ?? ALYCE DANA ALEX ? Acc #: ?[id number] ?Pt. MRN: ?[id number] ? Col Date: ?? 0 ? /Sex: ?1960,(50 years),Female ? Rec Date: ?? 09/09/2010 ?LOC: ?HCN ? CYTOPATHOLOGY: ??SHERIFF DETECTIVE ? ---Adequacy--- ? Specimen submitted is satisfactory for evaluation. ??No endocervical ? component present . ? Note: ??Initial microsoft dynamics consultant ss-sectional studies suggested that CLINT cells were more ? commonly identified when an endoc ervical component was present, however ? subsequent longitudinal studies fail to show that wom en lacking an ? endocervical component in a Pap smear are at increa sed risk for CLINT. ? ---Cytopathologic Diagnosis--- ?NORMAL ? Negative for Intraepithelial Lesion or Malignancy (NI LM). ? 09/10/10 ?? Screened by: ??FMQ ? 09/15/10 ?? Verified by: ??Soy OLIVO(ASCP), Ian Lamas - Irrigator Head ? ---Comment--- ? CORRECTED REPORT (see Comment) ? Correction ? Note: ??This report i s issued for the purpose of correcting the [place] medical record number. ? There are no other changes to the text of this report . ? 09/15/10 15:04 fmq. ? ---Clinical Information--- ? Specimen Source: ?Cervical Endocervical LBP ? LMP: ?08/24/2010 ? /?: ?? No ? Hysterectomy?: ?No ? Clinical Data, Significant Therapy and Clinical Impre ssion: ?Remote history in 1984 - abnormal Pap and Colpos copy ? [facility] So. Med Rec #: ? [id number] ? HPV Option: ?If ASCUS, please perform reflex High Risk HPV Te sting. ? Preparation: ?Hologic Vial ? This Pap Test has bee n evaluated with the assistance of the ThinPrep Pap ? Test Imaging System. ? [facility] ? Provider: ?? RADHA MASTERSON ?Pt. Name: ?? ALYCE ALEX, DANA ? Acc #: ?[id number] ?Pt. MRN: ?[id number] ? Col Date: ?? 0 ? /Sex: ?1960,(50 years),Female ? Rec Date: ?? 09/09/2010 ?LOC: ?HCN ? CYTOPATHOLOGY: ??SHERIFF DETECTIVE ? Note: ? The Pap test is a screening test for cervical c ancer with an inherent ? false-negative rate dependent upon several variables. ??For further ? information please contact the [facility] Laboratory. ? Reference: ??Abendrot h CS. ??Fire Observer of Pap Smear Results. ??In: ? Johanna BS, Michael HH, ed. ??The Pap Smear. ??[place]: ??Mac 2002: ? 71-77. Specimen (Source) Anatomical Collection Method Collection Time Re ceived Time Location / / Volume Laterality 09/08/2010 9:45 AM EST Radha Masterson CNM PATHOLOGY/CYTOLOGY ORDERABLE S Performing Organization Address City/State/[place] [address] [facility] documented in this encounter Visit Diagnoses Not on filedocumented in this encounter Care Teams Manager It Security Relationship Specialty Start Date End Date Edna Woo MD PCP - General 09/22/10 02/03/22 [place] [address] documented as of this encounter
--- OUTSIDE RECORDS SUMMARY | 2022-05-20 00:26 | XMS_ITS | Encounter Summary ---
:1960 Author Organization [facility] [place] [address] Care Team Providers Name Role Phone Camelia Crockett APRN Primary Care Provider Reason for Visit Reason Onset Date Comments Medication Refill 05/06/2022 Encounter Details Date Type Department Care Team Description 05/06/2022 Refill Pain and Spine Ruben singh at [facility] Dejah Bolaños, [place] [address] Social History Tobacco Use Types Packs/Day Years Used Date Former Smoker Smokeless Tobacco: Never Used Comments: quit in 2003 Sex Assigned at Date Recorded Not on file documented as of this encounter Plan of Treatment Upcoming Encounters Date Type Specialty Care Team Description 05/24/2022 Office Visit [facility] Col luciana Alonzo APRN [facility] ER DR PAIN MEDICINE [place], [place] [address] (Wo rk) documented as of this encounter Visit Diagnoses Not on filedocumented in this encounter Care Teams Oyster Grader Relationship Specialty Start Date End Date Camelia Crockett APRN PCP - General Internal Medicine 02/04/[address] [place] [id number] documented as of this encounter
--- OUTSIDE RECORDS SUMMARY | 2022-05-20 00:26 | XMS_ITS | Encounter Summary ---
:1960 Author Organization [facility] [place] [address] Care Team Providers Name Role Phone Edna Woo MD Primary Care Provider [phone] Reason for Visit Reason Onset Date Comments Other 08/15/2017 Encounter Details Date Type Department Care Team Description 08/15/2017 Telephone Spine Center at [facility] [place] [address] Social History Tobacco Use Types Packs/Day Years Used Date Former Smoker Smokeless Tobacco: Never Used Comments: quit in 2003 Sex Assigned at Date Recorded Not on file documented as of this encounter Miscellaneous Notes Telephone Encounter - Kathy Pablo RN - 08/15/2017 1:55 PM EDT Received call from patient reporting returning neck and bilateral shoulder/arm pain left worse than right. She had TJ on 12/31/16 with good result up until about a month ago and in the last few weeks symptoms have fully returned. She questioned trying a medrol dose pack as first step. Above was discussed with ELISSA Whitlock, he authorized prescription for Medrol dose pack, she should call to update regarding response, if not improved she should schedule follow up appointment. Patient was contacted and informed. She will hold all other Nsaids while taking dose pack and will call with her response. documented in this encounter Plan of Treatment Upcoming Encounters Date Type Specialty Care Team Description 05/24/2022 Office Visit [facility] Col luciana Alonzo ICE RINK ATTENDANT [facility] ER PAIN MEDICINE [place], [place] [address] (Wo rk) documented as of this encounter Visit Diagnoses Not on filedocumented in this encounter Care Teams Stick Puller Relationship Specialty Start Date End Date Edna Woo MD PCP - General 09/22/10 02/03/22 [place] [address] documented as of this encounter
--- OUTSIDE RECORDS SUMMARY | 2022-05-20 00:26 | XMS_ITS | Encounter Summary ---
:1960 Author Organization [facility] [place] [address] Care Team Providers Name Role Phone Edna Woo MD Primary Care Provider [phone] Encounter Details Date Type Department Care Team Description 12/30/2016 [facility] [place] [place] [address] Social History Tobacco Use Types Packs/Day Years Used Date Former Smoker Smokeless Tobacco: Never Used Comments: quit in 2003 Sex Assigned at Date Recorded Not on file documented as of this encounter Miscellaneous Notes Telephone Encounter - Anand eWston RN - 12/30/2016 11:36 AM EST Ilana Lund :1960 Message left: I left a message on answering machine Ms. Lund at 11:36 AM regarding her upcoming Neither cervicalepidural steroid injection with Dr. Lu Wu MD. Message included the followin. Patient instructed to arrive at 0730 (30 minutes prior to procedure start time) on [id number] (date of procedure) with their cryogenic transport driver. 2. Following instructions left in the message: - Bring Updated list of medications including dosage and reason for taking. - Call the Pain Clinic Nurse at for: ~Procedure instructions. ~If you are taking antibiotics. ~If you have any signs or symptoms of infection, cold or flu. ~If you have any skin breakdown (rashes, cysts, or abscess.) ~If you are taking anticoagulants / blood thinners (Plavix, Pletal, Lovenox, Coumadin, etc). ~If you had any steroid injections anywhere in your body within the last two weeks? 3. If patient NPO: No food after 0200 (6 hours prior to procedure start time); clear fluids only up until 0600 (2 hours prior to procedure start time) Anand [place], RN documented in this encounter Plan of Treatment Upcoming Encounters Date Type Specialty Care Team Description 05/24/2022 Office Visit [facility] Col luciana Alonzo, GLASS CUT OFF TENDER [facility] ER PAIN MEDICINE [place], [place] [address] (Wo rk) documented as of this encounter Visit Diagnoses Not on filedocumented in this encounter Care Teams Software Engineering Specialist Relationship Specialty Start Date End Date Edna Woo MD PCP - General 09/22/10 02/03/22 20 [place] [address] documented as of this encounter
--- OUTSIDE RECORDS SUMMARY | 2022-05-20 00:26 | XMS_ITS | Encounter Summary ---
:1960 Author Organization [facility] [place] [address] Care Team Providers Name Role Phone Edna Woo MD Primary Care Provider Reason for Referral Diagnostic Test (Routine) - Closed Specialty Diagnoses / Procedures Referred By Contact Refer red To Contact Radiology Diagnoses Cervical spondylosis with radiculopathy Eliot Hassan PA [facility] Rad Mri Procedures MRI Cervical Spine wo Contrast (Generic) [facility] [place] [address] [place] [address] Phone: Referral ID Status Reason Start Date Expiration Date Visits V isits Requested Authorized [id number] Closed Specialty 12/01/2016 12/01/2017 1 1 Service Requested Reason for Visit Reason Comments Neck Pain Bilateral Shoulder Pain left side worse Bilateral Arm Pain left side worse Encounter Details Date Type Department Care Team Description 12/01/2016 Office Visit Spine Center at Eliot Hassan Cervical spondylosis ELISSA Fowler [facility] [place] [phone] Social History Tobacco Use Types Packs/Day Years Used Date Former Smoker Smokeless Tobacco: Never Used Comments: quit in 2003 Sex Assigned at Date Recorded Not on file documented as of this encounter Last Filed Vital Signs Vital Sign Reading Time Taken Comments Blood Pressure 130/86 12/01/2016 12:53 PM EST Pulse - - Temperature - - Respiratory Rate - - Oxygen Saturation - - Inhaled Oxygen Concentration - - Weight 72.6 kg (160 lb) 12/01/2016 12:53 PM EST Height 167.6 cm (5' 6) 12/01/2016 12:53 PM EST Body Mass Index 25.82 12/01/2016 12:53 PM EST documented in this encounter Progress Notes Eliot Hassan PA - 12/01/2016 1:00 PM EST Subjective: Ilana Lund is a 56-year-old female seen today at the request, of herself, for chief complaint of neck pain and greater left upper extremity pain, with symptoms present over an acute on chronic basis. She has been seen for similar symptoms about 3 or 4 years ago,, with findings of cervical spondylosis but was not deemed a surgical candidate, and was otherwise all referred to undergo physical therapy, cervical epidural steroidal injections, and oral steroids, from which she did reasonably well. She reports having had her last cervical injection on 2012, but otherwise has had recurrence of her symptoms more recently over the past 2 months without any specific injury or incident. Shereports pain over the midline neck, radiating over the left side primarily over the trapezius, to the lateral shoulder, with symptoms that radiate into the radial forearm, and sensation of numbness andtingling that appears to involve the first, fourth, fifth digits on the left hand. She denies any weakness with this. She notes that her symptoms appear to improve somewhat with extending her neck back, otherwise it appears to worsen with turning, driving, and using a computer with her neck pain forward. She denies any issues with her gait, balance, fine motor skills. Prior treatments have been with cervical epidural steroidal injections, oral steroids, and physical therapy as discussed above. She has otherwise been using ice packs, and oral Aleve with some moderaterelief of her symptoms. She reports undergoing a shoulder injection for suspected impingement syndrome on the left side, but with no response to this. She denies any prior spine surgeries. Review of systems is negative for GI, , constitutional symptoms. She denies tobacco use. She has 5-6 servings of alcohol per week. She works from home, and [employer], doing 50-60 hour work weeks, and is otherwise not minutes much time from work recently. She has been also recently moved from [place] to [place]. Objective: This is a pleasant, healthy-appearing 56-year-old female, height is 5 feet 6 inches, weight is 160 pounds, body mass index 25.9, in no acute distress. She is right-hand dominant. Her gait isnormal. She performs tandem walking without much difficulty. Her neck is unremarkable to inspection.She is able to internally rotate her shoulder to about L1, and externally rotate to the contralateral scapula, without much discomfort. She has good resistance the rotator cuff testing in all planes. Empty can testing on the left side is mildly positive for some shoulder discomfort. Cervical range of motion is about 35?? forward flexion, 30?? extension, cervical rotation bilaterally to about 30??, sidebending bilaterally to about 10??. Spurling's maneuver on the right side produces some radiating left upper extremity symptoms at the shoulder and into the elbow. Reflexes are +2 and symmetric throughout the upper extremities, both knees and both ankles. There is no clonus or Babinski. Motor examination shows 5 out of 5 strength all upper extremity muscle groups. Sensory examination to light touch shows no focal deficits. Peripheral pulses are palpable. MRI of the cervical spine, as well as plain x-rays of the cervical spine from 2011 brought by the patient on external CD was reviewed today. This shows findings of cervical spondylosis particularly at C5-C6, C6-C7 with disc space narrowing, and on the MRI there appears to be broad-based disc bulging at both of these levels, which on the axial views shows some mild central canal stenosis. No cord signal change noted in the axial and sagittal MRI sequences. Assessment/plan: Ilana Lund is a 56-year-old female with acute on chronic neck pain and left upper extremity pain, somewhat over a C6/C7 distribution, in the context of findings of cervical spondylosis at C5-C6, C6-C7, which does show some degree of central canal narrowing. It is likely that these findings may have progressed, to involve compression of the left sided cervical nerve roots. Her neurological exam is entirely reassuring, but she has had limited response so far to continued use of naproxen, and ice packs as well as prior physical therapy, and is now having some radicular pattern of pain on the left side. She is interested in considering further treatments for her neck, and especially her left upper extremity symptoms. I advised her that we would need an updated MRI of the cervical spine without contrast, and she would like to proceed with this. She was otherwise given a brief course of oral steroids. She is going tohave an MRI of the cervical spine without contrast and see me for discussion of treatment options, such as cervical spine surgery, or consideration of repeat cervical epidural steroidal injections, depending of the anatomy revealed. documented in this encounter Plan of Treatment Upcoming Encounters Date Type Specialty Care Team Description 05/24/2022 Office Visit [facility] Sp[facility] Col luciana Alonzo APRN [facility] DR PAIN MEDICINE [place], [place] [address] (Wo rk) documented as of this encounter Results MRI Cervical Spine wo Contrast (Generic) (12/06/2016 5:32 PM EST) Anatomical Region Laterality Modality C-spine Magnetic Resonance Specimen (Source) Anatomical Location Collection Method / Collectio n Time Received Time / Laterality Volume Impressions 12/07/2016 9:49 AM EST Changes of cervical spondylosis greatest at C5-6 and C6-7 similar in pattern and extent to prior exam. Narrative 12/07/2016 9:49 AM EST EXAMINATION: MRI CERVICAL SPINE WO CONTRAST (GENERIC) CLINICAL HISTORY: Neck and left arm pain , prior MRI w/ C5-C6, C6-C7 spondylosis TECHNIQUE: MRI cervical spine noncontras t COMPARISON: 11/19/2011 FINDINGS: There is disc degenerative change at C5- 6 and C6-7 with disc space narrowing, endplate proliferative and reactive braun ges greater at the C5-6 level. This is similar in distribution and extent to pr ior exam. Vertebral bodies are normal in height. There is similar pattern of ante rolisthesis of C3 on C4. There is mild retrolisthesis of C5 on C6 also similar to prior exam. No aggressive marrow lesions. Greatest c ervical junction is within normal limits. Cord signal and morphology is no rmal. Findings at specific levels: C2-3: No di sc protrusion central stenosis or foraminal narrowing. There is facet arth ropathy greater on the left. C3-4: Minimal anterolisthesis. No disc p rotrusion or central stenosis. There is uncovertebral joint hypertrophic change and facet arthropathy with moderate right and severe left foraminal narrowin g. C4-5: No disc protrusion or central sten osis. Moderate right and mild left foraminal narrowing due to uncovertebral joint and facet arthropathy. C5-6: There is retrolisthesis and slitter service and setter ior disc osteophyte complex with posterior bony ridge. Mild overall canal stenosis present. There is moderate right and severe left foraminal narrowin g. C6-7: There is a posterior disc osteophy te complex with posterior bony ridge. Moderate canal stenosis present. There i s moderate bilateral foraminal narrowing. C7-T1: No disc protrusion central stenos is or foraminal narrowing. There is heterogeneous appearance of the thyroid gland especially on the right. Small nodules seen on the right measurin g less than a centimeter. Question multinodular disease. Procedure Note Jeremiah Cummings MD - 12/07/2016Formatt ing of this note might be different from the original. EXAMINATION: MRI CERVICAL SPINE WO CONTR AST (GENERIC) CLINICAL HISTORY: Neck and left arm pain , prior MRI w/ C5-C6, C6-C7 spondylosis TECHNIQUE: MRI cervical spine noncontras t COMPARISON: 11/19/2011 FINDINGS: There is disc degenerative change at C5- 6 and C6-7 with disc space narrowing, endplate proliferative and reactive braun ges greater at the C5-6 level. This is similar in distribution and extent to pr ior exam. Vertebral bodies are normal in height. There is similar pattern of ante rolisthesis of C3 on C4. There is mild retrolisthesis of C5 on C6 also similar to prior exam. No aggressive marrow lesions. Greatest c ervical junction is within normal limits. Cord signal and morphology is no rmal. Findings at specific levels: C2-3: No di sc protrusion central stenosis or foraminal narrowing. There is facet arth ropathy greater on the left. C3-4: Minimal anterolisthesis. No disc p rotrusion or central stenosis. There is uncovertebral joint hypertrophic change and facet arthropathy with moderate right and severe left foraminal narrowin g. C4-5: No disc protrusion or central sten osis. Moderate right and mild left foraminal narrowing due to uncovertebral joint and facet arthropathy. C5-6: There is retrolisthesis and slitter service and setter ior disc osteophyte complex with posterior bony ridge. Mild overall canal stenosis present. There is moderate right and severe left foraminal narrowin g. C6-7: There is a posterior disc osteophy te complex with posterior bony ridge. Moderate canal stenosis present. There i s moderate bilateral foraminal narrowing. C7-T1: No disc protrusion central stenos is or foraminal narrowing. There is heterogeneous appearance of the thyroid gland especially on the right. Small nodules seen on the right measurin g less than a centimeter. Question multinodular disease. IMPRESSION Changes of cervical spondylosis greatest at C5-6 and C6-7 similar in pattern and extent to prior exam. Teodoro Wolff MD IMG MRI ORDERABLES documented in this encounter Visit Diagnoses Diagnosis Cervical spondylosis with radiculopathy Cervical spondylosis with myelopathy Cervical spondylosis with radiculopathy Cervical spondylosis with myelopathy documented in this encounter Care Teams Repairer Veneer Sheet Relationship Specialty Start Date End Date Edna Woo MD PCP - General 09/22/10 02/03/22 [address] [place] [address] documented as of this encounter
--- OUTSIDE RECORDS SUMMARY | 2022-05-20 00:26 | XMS_ITS | Encounter Summary ---
:1960 Author Organization [facility] [place] [address] Care Team Providers Name Role Phone Camelia Crockett APRN Primary Care Provider Reason for Referral Consultation (Routine) - Authorized Specialty Diagnoses / Procedures Referred By Contact Refer red To Contact Pain and Spine Center Diagnoses Cervical spinal stenosis Neck pain Neck pain w/extremity pain/no new imaging Camelia Crockett, [facility] Luisana n And TRAVELER CHANGER Spine [address] [place], [place] [address] [place] [phone] Phone: Fax: Referral ID Status Reason Start Date Expiration Visits Visits Date Requested Authorized [id number] Authorized Consult, 02/04/2022 02/04/2023 6 6 Test & Treat Encounter Details Date Type Department Care Team Description 02/04/2022 Transcribe Orders eDH Incoming Camelia Crockett, Edie al spinal stenosis; Referrals TRAVELER CHANGER Neck pain [phone] [address] [place] [address] Social History Tobacco Use Types Packs/Day Years Used Date Former Smoker Smokeless Tobacco: Never Used Comments: quit in 2003 Sex Assigned at Date Recorded Not on file documented as of this encounter Plan of Treatment Upcoming Encounters Date Type Specialty Care Team Description 05/24/2022 Office Visit [facility] Sp[facility] Center Col luciana Alonzo, TRAVELER CHANGER [facility] PAIN MEDICINE [place], [place] [address] (Wo rk) Scheduled Referrals Name Type Priority Associated Diagnoses Order S chedule Referral to Spine Outpatient Referral Routine Cervical spinal Ordered: Center stenosis 02/04/2022 Neck pain documented as of this encounter Visit Diagnoses Diagnosis Cervical spinal stenosis Spinal stenosis in cervical region Neck pain Cervicalgia documented in this encounter Care Teams Laborer Prestressed Concrete Relationship Specialty Start Date End Date Camelia Crockett APRN PCP - General Internal Medicine 02/04/[address] [place] [address] documented as of this encounter
--- OUTSIDE RECORDS SUMMARY | 2022-05-20 00:26 | XMS_ITS | Encounter Summary ---
:1960 Author Organization [facility] [place] [address] Care Team Providers Name Role Phone Unavailable Primary Care Provider Unavailable Encounter Details Date Type Department Care Team Description 09/08/2010 Office Visit [facility] SANDER Radha Ricardo CNM [address] [address] [place] [address] [phone] Social History Tobacco Use Types Packs/Day Years Used Date Never Assessed Sex Assigned at Date Recorded Not on file documented as of this encounter Plan of Treatment Upcoming Encounters Date Type Specialty Care Team Description 05/24/2022 Office Visit [facility] Col luciana Alonzo, ESTEPHANIE [facility] ER DR PAIN MEDICINE [place], [place] [address] (Wo rk) documented as of this encounter Visit Diagnoses Not on filedocumented in this encounter
--- OUTSIDE RECORDS SUMMARY | 2022-05-20 00:26 | XMS_ITS | Encounter Summary ---
:1960 Author Organization [facility] [place] [address] Care Team Providers Name Role Phone Edna Woo MD Primary Care Provider [phone] Reason for Referral Physical Therapy (Routine) - Specialty Diagnoses / Procedures Referred By Contact Refer red To Contact Physical Therapy Diagnoses Cervical spondylosis with radiculopathy Eliot Hassan PA [facility] [place] [address] Referral ID Status Reason Start Date Expiration Date Visits V isits Requested Authorized [id number] Evaluate and 12/09/2016 06/07/2017 12 12 Treat onsultation (Routine) - Closed Specialty Diagnoses / Procedures Referred By Contact Refer red To Contact Pain Management Diagnoses Cervical spondylosis with radiculopathy Eliot Hassan PA [facility] Procedures PRO INJECTION DX/THER SBST INTRLMNR CRV/THRC W/IMG GDN [facility] [address] still [place], [place] [id number] [place] [address] Drive [place], [place] [address] Phone: Fax: Referral ID Status Reason Start Date Expiration Date Visits V isits Requested Authorized [id number] Closed Assume 12/09/2016 12/09/2017 1 1 Subset of Care Reason for Visit Reason Comments Neck Pain Encounter Details Date Type Department Care Team Description 12/09/2016 Office Visit [facility] at Eliot Hassan Cervical spondylosis ELISSA Fowler with radiculopathy [facility] [address] [place], [place] NIMISHA [place] [id number] [phone] Social History Tobacco Use Types Packs/Day Years Used Date Former Smoker Smokeless Tobacco: Never Used Comments: quit in 2003 Sex Assigned at Date Recorded Not on file documented as of this encounter Progress Notes Eliot Hassan PA - 12/09/2016 3:30 PM EST Subjective: Ilana Lund is a 56-year-old female seen today for follow-up to review her cervicalspine MRI. She was prior seen and evaluated by myself for chief complaint of neck pain and bilateralleft greater than right upper extremity pain. On my last visit with her, she had worse of oral steroids and she informs me today that this was not really helpful. She otherwise continues with the use of Fioricet, naproxen, lidocaine patch and frovatriptan for the associated headaches. Details of her history of otherwise been stable from our prior visit. Objective: MRI of the cervical spine dated 12/06/2016 was reviewed with her. This most significant fordegenerative changes at C3-C4, where there is facet and uncovertebral hypertrophy with no significant canal stenosis or any disc herniation, but noted bilateral left greater than right foraminal narrowing, at C5-C6 similar to prior exam in 2012, there is minimal canal stenosis but noted severe left and moderate to severe right foraminal stenosis secondary to retrolisthesis and posterior disc osteophyte complex, and at C6-C7 also similar to 2012, there is posterior disc osteophyte complex with pmhb-xp-zhhlzajo degree of canal narrowing centrally but otherwise moderate to severe bilateral foraminal stenosis. Assessment/plan: Ilana Lund is a 56-year-old female with chronic neck pain and bilateral upperextremity pain, left greater than right in the context of multilevel changes of cervical spondylosis, now with apparent symptoms of cervical radiculopathy. She has had limited improvement so far with oral medications that has included NSAIDs, topical anesthetic agents. She mentions a good response in the past for similar symptoms, which she is now having recurrence, with physical therapy and series of epidural injections. I discussed with her options of continued oral medications, spine focused physical therapy with a Edith therapist, and otherwise cervical epidural injections, as well as anterior cervical discectomy and fusion. She informs me today that she would like to avoid surgery at present and would rather proceed with nonoperative management. Following discussion, she will be undergoing cervical epidural steroidal injection or anesthesia pain clinic. Regarding her interested physical therapy, I gave her an external referral along with the contact information for [facility] therapists on [facility], which is more accessible from her home address at [facility]. If she has limited benefit with continued nonoperative management, medications, physical therapy, injections, the plan will be to proceed to surgical consultation. documented in this encounter Plan of Treatment Upcoming Encounters Date Type Specialty Care Team Description 05/24/2022 Office Visit [facility] Col luciana Alonzo, ESTEPHANIE [facility] [address] PAIN MEDICINE [place], [place] [address] (Wo rk) Scheduled Referrals Name Type Priority Associated Diagnoses Order S chedule Referral to Pain Outpatient Referral Routine Cervical spondylo sis Ordered: Clinic with radiculopathy 7 Referral to Outpatient Referral Routine Cervical spondylosis Ordered: Physical Therapy with radiculopathy 12/09 documented as of this encounter Visit Diagnoses Diagnosis Cervical spondylosis with radiculopathy Cervical spondylosis with myelopathy documented in this encounter Care Teams Visitor Services Information Assistant Relationship Specialty Start Date End Date Edna Woo MD PCP - General 09/22/10 02/03/22 20 [place] [address] documented as of this encounter
--- OUTSIDE RECORDS SUMMARY | 2022-05-20 00:26 | XMS_ITS | Encounter Summary ---
:1960 [place] [address] Care Team Providers Name Role Phone Edna Woo MD Primary Care Provider [phone] Encounter Details Date Type Department Care Team Description 11/19/2011 Hospital Encounter Radiology Library at [place], Fabi [place], Pain [facility] [place] [address] SPINE CENTER [phone] [place], [place] [address] (Wo rk) Social History Tobacco [...] [facility] Col luciana Alonzo, COMMERCIAL APPRAISER [facility] ER PAIN MEDICINE [place], [place] [address] (Wo rk) documented as of this encounter Procedures Procedure Name Priority Date/Time Associated Diagnosis Comme nts FILM LIBRARY Routine 11/19/2011 12:05 AM Pain Results for this STORAGE ONLY MR EST procedure ar e in SPINE the results section. documented in this encounter Results Film Library- Storage Only MR Spine (11/19/2011 12:05 AM EST) Specimen (Source) Anatomical Location Collection Method / Collectio n Time Received Time / Laterality Volume Narrative [facility] - 12/02/2016 3:14 PM EST This exam is for storage only and is aut o-finalizing. Niels Green MD IMG FILM LIBRARY ORDERABLES Performing Organization Address City/State/ZIP Code Phon e Number [place], [place] documented in this encounter Visit Diagnoses Diagnosis Pain Generalized pain documented in this encounter Care Teams Sub Prior Relationship Specialty Start Date End Date Edna Woo MD PCP - General 09/22/10 02/03/22 20 [place] [address] documented as of this encounter
--- OUTSIDE RECORDS SUMMARY | 2022-05-20 00:26 | XMS_ITS | Clinical Summary ---
:1960 Author Organization [facility] [address] Care Team Providers Name Role Phone Camelia Crockett ESTEPHANIE Primary Care Provider Allergies Active Allergy Reactions Severity Noted Date Comments Nsaids (Non-Steroidal Other (See Comments) 02/22/2022 Caliginous Colitis* Anti-Inflammatory Drug) Medications Medication Sig Dispensed Refills Start Date End Date Status acetaminophen Take 650 mg by 0 A ctive (Tylenol) 325 mg mouth as needed Tablet for Pain. estradioL (ESTRACE) Take 0.5 mg by 0 Active 0.5 mg Tablet mouth daily. proGESTerone Take 100 mg by 0 Ac tive (Prometrium) 100 mg mouth daily. Capsule b complex vitamins Take 1 capsule by 0 Active Capsule mouth daily. MAGNESIUM ORAL Take by mouth 0 A ctive nightly. calcium Take by mouth 0 Active carbonate/vitamin D3 daily. (VITAMIN D-3 ORAL) UNABLE TO FIND daily. CBD 0 Acti ve capsules gabapentin (Neurontin) Take 1 capsule by 90 capsule 1 03/25/20 22 Active 100 mg Capsule mouth 2 times daily. Titrate to twice a day gabapentin (Neurontin) 300-600 mgs at 60 capsule 2 05/09/2022 Active 300 mg Capsule bedtime. Active Problems No known active problems Encounters Date Type Specialty Care Team Description 05/06/2022 Refill Pain and Spine Dejah Bolaños, Center RN 03/25/2022 TH Visit Pain and Spine Hiral Alonzo, Cervical razia (TeleHealth) Center LICENSED FUNERAL DIRECTOR AND EMBALMER 02/23/2022 Office Visit Pain and Spine Hiral Alonzo, Cervical razia (Primary Center LICENSED FUNERAL DIRECTOR AND EMBALMER Dx) from Last 3 Months Immunizations Name Administration Dates Next Due Moderna Covid-19 (Director Hris 100mcg) Vaccine 09/18/2021, 2020, 02/03/2021 Social History Tobacco Use Types Packs/Day Years Used Date Former Smoker Smokeless Tobacco: Never Used Comments: quit in 2003 Sex Assigned at Date Recorded Not on file Last Filed Vital Signs Vital Sign Reading Time Taken Comments Blood Pressure 101/71 02/23/2022 9:36 AM EDT Pulse 66 02/23/2022 9:36 AM EDT Temperature - - Respiratory Rate 16 12/31/2016 8:24 AM EST Oxygen Saturation 99% 02/23/2022 9:36 AM EDT Inhaled Oxygen Concentration - - Weight 72.6 kg (160 lb) 02/23/2022 9:36 AM EDT Height 167.6 cm (5' 6) 04/28/2018 8:15 AM EDT Body Mass Index 25.82 04/28/2018 8:15 AM EDT Plan of Treatment Upcoming Encounters Date Type Specialty Care Team Description 05/24/2022 Office Visit [facility] Sp[facility] Center Col luciana Alonzo APRN [facility] ER DR PAIN MEDICINE [place], [place] [address] (Wo rk) Health Maintenance Due Date Last Done Comments HIV screen 1980 Hepatitis C Screening 1980 Tdap adult 1981 Tetanus vaccine 1981 HPV test 1992 Breast Cancer Share Decision Needed 2002 Diabetes Screening (HgbA1C or 2002 Glucose) Colonoscopy 2007 Breast Cancer screening 2012 Zoster vaccine (1 of 2) 2012 PAP Smear 09/08/2015 09/08/2010 Advance Directive 2017 Covid-19 Vaccine (4 - Booster for 01/16/2022 09/18/2021, , Moderna series) 02/03/2021 Influenza (Flu) vaccine (1 of 1 - 07/01/2022 Influenza standard series) Medical Devices Implanted Type Area Server Manager Device Shelf Expiration Model / Identifier Date Serial / Lot Paragard T [id number] IMPLANTS T 38 0A / Iud / Description: UP TO 3T PER [facility] Insurance Payer Benefit Plan / Subscriber ID Effective Dates Phone Addre ss Type Group [employer] NATIONAL [id number] 2022-Prese [id number] [address] BLUE SHIELD OOS PPO nt 3 [facility] [place] [address] Care Teams Care Transitions Manager Relationship Specialty Start Date End Date Camelia Crockett APRN PCP - General Internal Medicine 02/04/22 [address] [facility] [place] [place] [id number]
--- OUTSIDE RECORDS SUMMARY | 2022-05-20 00:26 | XMS_ITS | Encounter Summary ---
:1960 Author Organization [facility] [place] [address] Care Team Providers Name Role Phone Edna Woo MD Primary Care Provider [phone] Reason for Referral Diagnostic Test (Routine) - Closed Specialty Diagnoses / Procedures Referred By Contact Refer red To Contact Radiology Diagnoses Cervical spondylosis with radiculopathy Eliot Hassan PA [facility] Rad Mri Procedures MRI Cervical Spine wo Contrast (Generic) [facility] [place] [address] [place] [address] Phone: Referral ID Status Reason Start Date Expiration Date Visits V isits Requested Authorized [id number] Closed Specialty 12/01/2016 12/01/2017 1 1 Service Requested Reason for Visit Diagnostic Test (Routine) - Closed Specialty Diagnoses / Procedures Referred By Contact Refer red To Contact Radiology Diagnoses Cervical spondylosis with radiculopathy Eliot Hassan PA [facility] Rad Mri Procedures MRI Cervical Spine wo Contrast (Generic) [facility] [place] [address] [place] [address] Phone: Referral ID Status Reason Start Date Expiration Date Visits V isits Requested Authorized [id number] Closed Specialty 12/01/2016 12/01/2017 1 1 Service Requested Encounter Details Date Type Department Care Team Description 12/06/2016 Hospital Encounter MRI at [facility] Teodoro Wolff, Cervical spondylosis [facility] with radiculopathy [address] [place], [place] CENTER [address] SPINE CENTER [phone] [place] [address] Social History Tobacco Use Types Packs/Day Years Used Date Former Smoker Smokeless Tobacco: Never Used Comments: quit in 2003 Sex Assigned at Date Recorded Not on file documented as of this encounter Medications at Time of Discharge Medication Sig Dispensed Refills Start Date End Date lidocaine (LIDODERM) 5 % 8 09/02/2016 04/28/2018 Adhesive Patch, Medicated frovatriptan (FROVA) 2.5 mg Take 2.5 mg by 0 /0 04/201703/25/2022 Tablet mouth as needed. hnxiwvrbde-gxzuyvxnnuchl-dky Take 1 tablet by 0 03/25/2022 feine (FIORICET, ESGIC) mouth every 4 50-325-40 mg Tablet hours as needed for Pain. naproxen sodium (ANAPROX) Take 220 mg by 0 03/25/2022 220 mg Tablet mouth as needed. methylPREDNISolone (MEDROL Use as directed 21 tablet 0 10/201612/09/2016 DOSPACK) 4 mg Tablets, Dose on product Pack package. documented as of this encounter Plan of Treatment Upcoming Encounters Date Type Specialty Care Team Description 05/24/2022 Office Visit Pain [facility] Spine Center Col luciana Alonzo APRN [facility] PAIN MEDICINE [place], [place] [address] (Wo rk) documented as of this encounter Procedures Procedure Name Priority Date/Time Associated Diagnosis Comme nts MRI CERVICAL SPINE Routine 12/06/2016 5:32 PM Cervical spondyl osis Results for this WO CONTRAST EST with radiculopathy procedure are in the results section. documented in this encounter Results MRI Cervical Spine wo [...] facet arthropathy. C5-6: There is retrolisthesis and loan review officer ior disc osteophyte complex with posterior bony [...] facet arthropathy. C5-6: There is retrolisthesis and loan review officer ior disc osteophyte complex with posterior bony [...] myelopathy documented in this encounter Care Teams Director Of Search Engine Optimization Relationship Specialty Start Date End Date Edna Woo MD PCP - General 09/22/10 02/03/22 20 [place] [address] documented as of this encounter
--- OUTSIDE RECORDS SUMMARY | 2022-05-20 00:26 | XMS_ITS | Encounter Summary ---
:1960 Author Organization [facility] [place] [address] Care Team Providers Name Role Phone Camelia Crockett APRN Primary Care Provider Reason for Referral Physical Therapy (Routine) - Closed Specialty Diagnoses / Procedures Referred By Contact Refer red To Contact Diagnoses Cervicalgia Hiral Alonzo APRN Unknown [facility] None [place] [address] Referral ID Status Reason Start Date Expiration Date Visits V isits Requested Authorized [id number] Closed Evaluate and 02/23/2022 08/22/2022 12 12 Treat Reason for Visit Reason Comments Neck Pain New patient visit Consultation (Routine) - Authorized Specialty Diagnoses / Procedures Referred By Contact Refer red To Contact Pain and Spine Center Diagnoses Cervical spinal stenosis Neck pain Neck pain w/extremity pain/no new imaging Camelia Crockett, [facility] Luisana n And GENERAL PASSENGER AGENT Spine [address] [place], [place] [address] [place] [address] Phone: Fax: Referral ID Status Reason Start Date Expiration Visits Visits Date Requested Authorized [id number] Authorized Consult, 02/04/2022 02/04/2023 6 6 Test & Treat Encounter Details Date Type Department Care Team Description 02/23/2022 Office Visit [facility] Spine Center Hiral Alonzo C ervicalgia (Primary at [facility] GENERAL PASSENGER AGENT Dx) [facility] [address] [place] [place] PAIN MEDICINE [address] [place] [address] [phone] Social History Tobacco Use Types Packs/Day Years Used Date Former Smoker Smokeless Tobacco: Never Used Comments: quit in 2003 Sex Assigned at Date Recorded Not on file documented as of this encounter Last Filed Vital Signs Vital Sign Reading Time Taken Comments Blood Pressure 101/71 02/23/2022 9:36 AM EDT Pulse 66 02/23/2022 9:36 AM EDT Temperature - - Respiratory Rate - - Oxygen Saturation 99% 02/23/2022 9:36 AM EDT Inhaled Oxygen Concentration - - Weight 72.6 kg (160 lb) 02/23/2022 9:36 AM EDT Height - - Body Mass Index 25.82 04/28/2018 8:15 AM EDT documented in this encounter Patient Instructions Patient InstructionsHiral Alonzo APRN - 02/23/2022 10:24 AM EDT Gabapentin External PT Diclofenac' fu telehealth in 4 weeks documented in this encounter Progress Notes Hiral Alonzo APRN - 02/23/2022 9:45 AM EDT [facility] Date of Consultation: February 22, 2022 Referring Provider: Camelia Crockett Reason for request of consultation: She is wondering about a massage, Chief Complaint: neck pain, That radiates to deltoids HDZ Wraps from neck to head History of Present Illness: Ms. Lund is [...] She has an upcoming appointment with her sample weaver and an upcoming appointment with an orthopedist locally this week. 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 acetaminophen (Tylenol) 325 mg Tablet Take 650 mg by mouth as needed for Pain. ??? estradioL (ESTRACE) 0.5 mg Tablet Take 0.5 mg by mouth daily. ??? proGESTerone (Prometrium) 100 mg Capsule Take 100 mg by mouth daily. ??? b complex vitamins Capsule Take 1 capsule by mouth daily. ??? MAGNESIUM ORAL Take by mouth nightly. ??? calcium carbonate/vitamin D3 (VITAMIN D-3 ORAL) Take by mouth daily. ??? UNABLE TO FIND daily. CBD capsules Allergies & Adverse Reactions: Nsaids (non-steroidal anti-inflammatory [...] than daily Physical Exam: No data found. Appearance/ Behavior Well groomed, good eye contact, relaxed, cooperative, normal speech, no acute distress, no involuntary movements Lungs Respirations unlabored Cardiovascular Bilateral upper extremities warm and dry, pulses present and symmetrical Skin No rash, asymmetric hair loss, bruises, scars, swelling Musckuloskeletal Inspection/Palpation/ Range of Motion/Facet Loading maneuvers Gait: Nonantalgic Assistive device: None Heel, toe, heel to toe: Without difficulty, they can balance on each leg without hip drop. Inspection: good alignment, no excessive curvature, shoulder and hip levels equal bilaterally; no skin breakdown ROM: Reduced range of motion in lateral bending and rotation, flexion and extension are full. There is a negative Spurling's maneuver. Palpation: No tenderness to palpation, no tenderness over the greater and lesser occipital nerves although she does report a history of headaches in those areas, no tenderness in the trapezius, there is tenderness over the rotator cuff insertion sites on the right and she does have reduced range of motion with abduction and flexion and rotator cuff impingement signs including passive signs are all positive for reproduction of her shoulder pain. Her sensation, strength, and reflexes otherwise are symmetrical.. Imaging & Other Studies: Her last MRI [...] y.o. year-old female who presents to the [facility] for [facility] Spine clinic seen for recurrent neck pain and right greater than left arm symptoms. The right symptoms seem to be potentially some C5 symptoms overlaid on shoulder rotator cuff pain as well as left arm symptoms which seem to be in the C5 or C6 distribution as she does have some pain sometimes in the bilateral first webspac base hands she is going to do some local physical therapy and continue with herMcKenzie exercises. In addition, I am giving her some gabapentin at bedtime to try and she will discuss the use of diclofenac gel on her shoulder with her orthopedist and her sample weaver this week. We are planning a follow-up in 4 weeks and if her symptoms are not improving plan to have a repeat MRI so that she can proceed to an epidural steroid injection if appropriate. We are going to follow-up by telehealth but if her symptoms are not improved she is asked to change that to an in person visit so I can conduct physical exam. Thank you Dr. Crockett for allowing my participation in Ilana Lund's care. Hiral Alonzo, , CERTIFIED CREDIT COUNSELOR-DOMONIQUE, ESTEPHANIE Nurse practitioner Pain management [facility] documented in this encounter Plan of Treatment Upcoming Encounters Date Type Specialty Care Team Description 05/24/2022 Office Visit Pain and Spine Center Col luciana Alonzo APRN [facility] PAIN MEDICINE [place], [place] [address] (Wo rk) Scheduled Referrals Name Type Priority Associated Diagnoses Order S chedule Referral to Outpatient Referral Routine Cervicalgia Ordered: Physical Therapy 02/23/2022 documented as of this encounter Visit Diagnoses Diagnosis Cervicalgia - Primary documented in this encounter Care Teams Wool Hat Forming Machine Tender Relationship Specialty Start Date End Date Camelia Crockett APRN PCP - General Internal Medicine 02/04/[address] [place], [place] [address] [place] [address] documented as of this encounter
--- OUTSIDE RECORDS SUMMARY | 2022-05-20 00:26 | XMS_ITS | Encounter Summary ---
:1960 Author Organization [facility] [place] [address] Care Team Providers Name Role Phone Edna Woo MD Primary Care Provider [phone] Reason for Visit Reason Comments Neck Pain Consultation (Routine) - Closed Specialty Diagnoses / Procedures Referred By Contact Refer red To Contact Pain Management Diagnoses Cervical spondylosis with radiculopathy Eliot Hassan PA [facility] Procedures PRO INJECTION DX/THER SBST INTRLMNR CRV/THRC W/IMG GDN [facility] [place] [address] [facility] [address] [place], [place] [phone] Phone: Fax: Referral ID Status Reason Start Date Expiration Date Visits V isits Requested Authorized [id number] Closed Assume 12/09/2016 12/09/2017 1 1 Subset of Care Encounter Details Date Type Department Care Team Description 12/31/2016 Procedure visit Pain Management at Kartik Copeland vical disc disorder [facility] MD Ainsley with radiculopathy of [facility] occipito- atlanto-axial [facility] [address] [place], [place] PAIN MEDICINE [phone] [place], [place] [phone] [facility] Social History Tobacco Use Types Packs/Day Years Used Date Former Smoker Smokeless Tobacco: Never Used Comments: quit in 2003 Sex Assigned at Date Recorded Not on file documented as of this encounter Last Filed Vital Signs Vital Sign Reading Time Taken Comments Blood Pressure 128/93 12/31/2016 8:24 AM EST Pulse 69 12/31/2016 8:24 AM EST Temperature - - Respiratory Rate 16 12/31/2016 8:24 AM EST Oxygen Saturation 96% 12/31/2016 8:24 AM EST Inhaled Oxygen Concentration - - Weight 68 kg (150 lb) 12/31/2016 8:02 AM EST Height 167.6 cm (5' 6) 12/31/2016 8:02 AM EST Body Mass Index 24.21 12/31/2016 8:02 AM EST documented in this encounter Patient Instructions Patient InstructionsJeremiahsergio Dipika SUSAN Jamison - 12/31/2016 8:00 AM EST Pain Management Center Discharge Instructions: You were seen by Dr. Kartik Copeland MD who performed cervical epidural steroid injection. It is normal that the injection site will be sore for up to 48 hours. You may also experience mild stiffness in the joint near the injection site. [x] You may resume your normal activities: tomorrow. You may shower today. DO NOT tub bathe, use whirlpools, hot tubs or pool therapy for 2 days. Remove Band-Aid(s) later today/tomorrow. Do not drive until tomorrow. Use caution walking/climbing stairs as you may be unsteady on your feet. You may use your usual medications, including pain medications, as directed, unless otherwise instructed. You may use an ice pack as needed for the first 24 hours, on for 20 minutes then off for 20 minutes.Do not apply heat today. [x] You received Midazolam 2 mg through an intravenous line, to lessen the anxiety/pain of your procedure. DO NOT operate heavy or dangerous equipment/tools, or sign important papers today. Attempt to empty your bladder 4-6 hours after your procedure. You received the following medications: Lidocaine, Omnipaque (contrast dye) and Dexamethasone SodiumPhosphate 10 mg. During regular business hours, please phone the Pain Management Center at for appointments or with any questions or if the following or other troubling symptoms develop: 1) Prolonged dizziness or weakness (more than 1 day). 2) Localized swelling, redness or drainage at the injection site(s). 3) Temperature of 101 degrees that lasts for more than 4 hours. After 5 PM or on weekends, call and ask for Pain Clinic provider on-call. If you are unable to reach the Pain Management Center and have a complication, please call your Primary Care Provider or proceed to your local emergency department. Dipika Varela LPN Special instructions documented in this encounter Progress Notes Dipika Varela LPN - 12/31/2016 8:00 AM EST Pre-Procedure Screening Questions: 1. Status: No 2. 3. 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 Yes 4. Patient taking antibiotics at present? No 5. NPO per Pain Management Center protocol? Yes 6. 7. Patient diabetic: No __ borderline (not treated with medications) __ managed with oral medications __ managed with injected medications 8. Patient routinely taking anticoagulants ? No Date stopped Current INR Patient Vital Signs documented in Doc Flowsheets associated with this encounter. Patient Discharge Instructions were reviewed with patient and copy provided to patient. IV anxiolysis: Yes IV placement: ??? Location of IV Insertion: left [x ] hand [ ] anterior forearm [ ] posterior forearm [ ] AC [ ] upper arm [ ] other: ??? IV Gauge: [ ] 24G [ x ] 22G [ ] 20G After IV insertion completed, IV was secured with occlusive transparent dressing. IV site is patent and intact. Patient is without complaint upon completion of IV insertion. ??? Started by: Dipika Varela LPN ??? Initiated by: Dipika Varela LPN ??? IV Solution: LR 1000ml - rate as directed by proceduralist ??? Total Volume Intravenous Fluid infused documented in the Medication Administration Record (MAR) Site condition at IV removal: [ x ] Clear [ ] Bruised [ ] other: Administration of IV anxiolysis procedural medications documented in MAR as ordered by proceduralist documented in this encounter Procedure Notes Ramon Fitch MD - 12/31/2016 8:00 AM ESTAssociated Order(s): EPIDURAL STEROID INJECTION Procedure(s): EPIDURAL STEROID INJECTION Pre-Procedure Diagnose(s): Cervical disc disorder with radiculopathy of eyuhzsuu-ixjnjhb-snzra region CERVICAL EPIDURAL STERIOID INJECTION PROCEDURE NOTE ?? Chief Complaint: Cervical spine pain and left radicular arm pain ?? Ilana Lund has been referred to the Pain Management Center for cervical epidural steroid injection. ?? Ilana Lund was greeted by the nurse who verified patients name and . Patient was then takento the fluoroscopy suite. ?? Ilana Lund was interviewed and the medical record reviewed. There were no medical, pharmacologic, radiographic, or other structural contraindications to attempting fluoroscopically guided C7-T1 epidural steroid injection. Risks and expected side effects as well as potential benefits of the procedure were reviewed with Ilana Lund and her voiced concerns addressed. The patient consent form was signed and witnessed. ?? Ilana Lund was placed in the prone position on the fluoroscopy table and automated blood pressure cuff and pulse oximeter applied. The skin entry point for entering the epidural space by a left C7-T1 approach was marked. Following thorough Chlorhexidine preparation of the skin and draping and 2%lidocaine infiltration of the skin entry point and subcutaneous tissues, a 22 gauge Tuohey epidural needle was placed under fluoroscopic guidance and with loss of resistance technique into the epiduralspace. Needle tip placement and depth were aided and confirmed by fluoroscopy with contralateral lateral-oblique view of 55 degrees. There was no paresthesia or return of blood or CSF through the needle. 0.5 cc's of Omnipaque 240 were injected with clear epidural spread confirmed with fluoroscopy. 1mlof Dexamethasone 10 mg/ml followed by 1 ml sterile normal saline and 1 ml lidocaine 2% preservative free was injected. There was not any unusual discomfort expressed by Ilana Lund. ?? Ilana Lund's vital signs were stable throughout the procedure and were as recorded in nursing records. Intravenous drugs for anxiolysis if given are documented in the MAR. ?? Follow up plans and appointments were discussed with Ilana Lund. Post procedure instruction was given as documented in nursing records and having met discharge criteria she was discharged from the Pain Management Center. ?? Kartik Copeland MD Clinical Softball Umpire of Anesthesiology [facility] [address] [phone] / [facility] ?? documented in this encounter Plan of Treatment Upcoming Encounters Date Type Specialty Care Team Description 05/24/2022 Office Visit [facility] Col luciana Alonzo APRN [facility] [address] PAIN MEDICINE [place], [place] [address] (Wo rk) documented as of this encounter Procedures Procedure Name Priority Date/Time Associated Diagnosis Comme nts EPIDURAL STEROID Routine 12/31/2016 8:44 AM Cervical disc diso rder Results for this INJECTION EST with radiculopathy of proced ure are in nnindsik-vvmvqff-mjttt the r esults region section. documented in this encounter Results EPIDURAL STEROID INJECTION (12/31/2016 8:44 AM EST) Narrative Ramon Fitch MD - 12/31/2016 8:44 AM EST Ramon Fitch MD ? 12/31/2016 ??8:44 AM CERVICAL EPIDURAL STERIOID INJECTION PRO CEDURE NOTE ?? Chief Complaint: Cervical spine pain and left radicular arm pain ?? Ilana Lund has been referred to [facility] for cervical epidural steroid injection. ?? Ilana Lund was greeted by the [facility] e who verified patients name and . Patient was then taken to the fluoroscopy suite. ?? Ilana Lund was interviewed and the medical record reviewed. There were no medical, pharmacologic, ra diographic, or other structural contraindications to attempti ng fluoroscopically guided C7-T1 epidural steroid injection. Risks and expected side effects as well as potential benefits of the procedure were reviewed with Ilana Lund and her v oiced concerns addressed. The patient consent form was signed and witnessed. ?? Ilana Lund was placed in the prone position on the fluoroscopy table and automated blood pr essure cuff and pulse oximeter applied. The skin entry point f or entering the epidural space by a left C7-T1 approach was giana jamison. Following thorough Chlorhexidine preparation of the skin an d draping and 2% lidocaine infiltration of the skin entry point and subcutaneous tissues, a 22 gauge Tuohey epidural need le was placed under fluoroscopic guidance and with loss of r esistance technique into the epidural space. Needle tip placement and depth were aided and confirmed by fluoroscopy with contralate ral lateral-oblique view of 55 degrees. There was no paresthesia or return of blood or CSF through the needle. 0.5 cc's of Omnipaqu e 240 were injected with clear epidural spread confirmed with flu oroscopy. 1ml of Dexamethasone 10 mg/ml followed by 1 ml sterile normal saline and 1 ml lidocaine 2% preservative free was injected. There was not any unusual discomfort expressed by Renita Lund. ?? Ilana Lund's vital signs were stab le throughout the procedure and were as recorded in nursin g records. Intravenous drugs for anxiolysis if given are docume nted in the MAR. ?? Follow up plans and appointments were di scussed with Ilana Lund. Post procedure instruction was ainsley sharpe as documented in nursing records and having met discharge criteria she was discharged from the Pain Management [facility] er. ?? Kartik Copeland MD Clinical Softball Umpire of Anesthes iology Pain [facility] [address] [phone] / Fax: [facility] ?? Kartik Copeland MD NEUROLOGY ORDERABLES documented in this encounter Visit Diagnoses Diagnosis Cervical disc disorder with radiculopath y of axpmkkbo-vgjtatm-pldnt region Brachial neuritis or radiculitis nos documented in this encounter Administered Medications Inactive Administered Medications - up to 3 most recent administrations Medication Order MAR Action Action Date Dose Rate Site dexamethasone(PF) (DECADRON) 10 Given 12/31/2016 9:00 AM EST 10 mg mg/mL injection 10 mg 10 mg, Epidural, ONCE, 1 dose, On Tue12/31/16 at 0900, Routine iohexol (OMNIPAQUE) 240 mg/mL solution 1 mL Given 12/31/2016 9:00 AM EST 1 mL 1 mL, Epidural, ONCE, 1 dose, On Tue12/31/16 at 0900, Wasted 49 ml, Routine lactated ringers infusion 100 mL New Bag 12/31/2016 9:00 AM EST 100 mLs 100 mL, Intravenous, ONCE, 1 dose, On Tue12/31/16 at 0900 lidocaine (PF) (XYLOCAINE) 20 mg/mL (2 %) Given 12/31/2016 9:00 AM EST 1 mg injection 1 mg 1 mg, Other, ONCE, 1 dose, On Tue12/31/16 at 0900, Routine midazolam (PF) (VERSED) 1 mg/mL injectio n 2 mg Given 12/31/2016 9:00 AM EST 2 mg 2 mg, Intravenous, ONCE, 1 dose, On Tue12/31/16 at 0900, Routine documented in this encounter Care Teams Catering And Events Manager Relationship Specialty Start Date End Date Edna Woo MD PCP - General 09/22/10 02/03/[address] [place] [phone] documented as of this encounter
--- OUTSIDE RECORDS SUMMARY | 2022-05-20 00:27 | XMS_ITS | Encounter Summary ---
:1960 Author Organization [facility] Address [address] [place] [address] Care Team Providers Name Role Phone Bon Camelia Christin DOGGY [employer] ACTIVITIES DIRECTOR Primary Care Provider Encounter Details Date Type Department Care Team Description 11/02/2021 Lab Requisition [facility] Consuelo Amato for other Pathology & M, DO general examination Laboratory Medicine - [address] [employer] [facility] [address] [place] [phone] Social History Tobacco Use Types Packs/Day Years Used Date Never Assessed Sex Assigned at Date Recorded Not on file documented as of this encounter Plan of Treatment Not on filedocumented as of this encounter Procedures Procedure Name Priority Date/Time Associated Diagnosis Comme nts SURGICAL PATHOLOGY Today 10/30/2021 14:30 Encounter for othe r Results for this EST general examination procedur e are in the results section. documented in this encounter Results SURGICAL PATHOLOGY (10/30/2021 14:30 EST) Note to Patient The following [facility] pathology results CENTER have been interpreted LABORATORY by your pathologist SERVICES and may be available to you before your health provider has had the opportunity to review them. Please allow time for your provider to receive these results and explore management options, if applicable. Final Diagnosis A. COLON, RIGHT, BIOPSY: [facility] MEDICAL - Collagenous colitis. CENTER LABORATORY B. COLON, 50 CM, BIOPSY: SERVICES - Severe acute ischemic colitis pattern with prominent ulceration. - Background of collagenous colitis. - See comment. C. COLON, ADJACENT TO 50 CM, BIOPSY: - Collagenous colitis. D. COLON, 40 CM, BIOPSY: - Collagenous colitis with mild focal active inflammat ion. E. RECTUM, BIOPSY: - Colorectal mucosa with no significant diagnostic abn ormalities. F. COLON, 60 CM, BIOPSY: - Collagenous colitis. Diagnosis Comment B) The changes may [facility] MEDICAL represent acute CENTER ischemic colitis or a LABORATORY possible drug effect SERVICES (e.g. NSAIDS). Attestation There was significant [facility] MEDICAL Electr onically resident/fellow CENTER signed by Ab markie Patton involvement in the LABORATORY Paige Crystal on diagnostic evaluation SERVICES 11/04/19 22 at 0933 of this case. By the signature below, the attending physician certifies that they have personally conducted a gross and/or microscopic examination of the described specimens and rendered or confirmed the above diagnosis. Clinical History Colitis [facility] LABORATORY SERVICES Gross Description A. [facility] MEDICAL Received in formalin elaine d with proper patient identification (initials P, C) and right colon bx is a single chaudhry tissue (0.8 x 0.2 x 0.1 cm). Submitted intact in A1. CENTER LABORATORY B. SERVICES Received in formalin elaine d with proper patient identification (initials P, C) and colon bx @50 cm are 4 chaudhry-brown tissues (averaging 0.3 x 0.2 x 0.1 cm each). Submitted entirely in B1. C. Received in formalin elaine d with proper patient identification (initials P, C) and adjacent tissue @ 50 cm is a single chaudhry tissue (0.5 x 0.2 x 0.1 cm). Submitted intact C1. D. Received in formalin elaine d with proper patient identification (initials P, C) and colon bx @ 40 cm are 2 chaudhry tissues (0.2 x 0.1 x 0.1 cm and 0.3 x 0.2 x 0.1 cm). Submitted entirely in D1. E. Received in formalin elaine d with proper patient identification (initials P, C) and rectal bx is a single chaudhry tissue (0.4 x 0.3 x 0.1 cm). Submitted intact in E1. F. Received in formalin elaine d with proper patient identification (initials P, C) and colon bx @ 60 cm is a single chaudhry tissue (0.5 x 0.2 x 0.1 cm). Submitted intact in F1. [facility] 11/02/2021 17:34 Resident/Fellow: Rosario Del Toro MD [facility] LABORATORY SERVICES Performing Lab [facility] LABOR[facility] SERVICES Scanned Images [facility] SERVICES Specimen Tissue - Entire colon (body structure) Tissue specimen (specimen) - Entire colo n (body structure) Tissue specimen (specimen) - Entire colo n (body structure) Tissue specimen (specimen) - Entire colo n (body structure) Tissue specimen (specimen) - Specimen fr om rectum (specimen) Tissue specimen (specimen) - Entire colo n (body structure) Performing Organization Address City/State/[facility] Code Phon e Number [facility] LABORATORY [address] [place] [address] SERVICES documented in this encounter Visit Diagnoses Diagnosis Encounter for other general examination documented in this encounter Care Teams Design Consultant Relationship Specialty Start Date End Date Camelia Crockett, ABUNDIO PCP - General Family Medicine - Primary 09/30/[address] [place] [phone] documented as of this encounter
--- OUTSIDE RECORDS SUMMARY | 2022-05-20 00:27 | XMS_ITS | Encounter Summary ---
:1960 Author Organization [facility] Address [address] [place] [address] Care Team Providers Name Role Phone Camelia Crockett FLOOR FINISHER Primary Care Provider Encounter Details Date Type Department Care Team Description 10/22/[address] [facility] Outr Resulting Lab, Pathology & Laboratory Provider [facility] [address] [place] [address] Social History Tobacco Use Types Packs/Day Years Used Date Never Assessed Sex Assigned at Date Recorded Not on file documented as of this encounter Plan of Treatment Not on filedocumented as of this encounter Procedures Procedure Name Priority Date/Time Associated Diagnosis Comme nts FECAL BACTERIAL Routine 10/22/2021 9:00 EST Resul ts for this PATHOGENS BY PCR procedure a re in the results section. documented in this encounter Results FECAL BACTERIAL PATHOGENS BY PCR (10/22/2021 9:00 EST) Pathologist Sig nature Salmonella PCR Negative Negative [facility] SERVICES Shigella/Enteroinvasive Negative Negative [facility] R E. coli LABORATORY SERVICES HN LAB CAMPYLOBACTER PCR Negative Negative [facility] LABORAT[facility] SERVICES Shiga Toxin PCR Negative Negative [facility] SERVICES Specimen Feces - Specimen from rectum (specimen) Performing Organization Address City/State/ZIP Code Phon e Number [facility] [address] [place] [address] SERVICES documented in this encounter Visit Diagnoses Not on filedocumented in this encounter Care Teams Passport Support Associate Relationship Specialty Start Date End Date Camelia Crockett, FLOOR FINISHER PCP - General Family Medicine - Primary 09/30/[address] [place] [phone] documented as of this encounter
--- OUTSIDE RECORDS SUMMARY | 2022-05-20 00:27 | XMS_ITS | Encounter Summary ---
:1960 Author Organization [facility] Address [address] [place] [address] Care Team Providers Name Role Phone Camelia Crockett FOAMITE MIXER Primary Care Provider Encounter Details Date Type Department Care Team Description 04/20/2022 Lab Requisition [facility] Consuelo Amato disorder of intestine, unspecified (HCC); Pathology & M, DO Collagenous colitis Laboratory Medicine - [address] [facility] [address] [place] [phone] Social History Tobacco Use Types Packs/Day Years Used Date Never Assessed Sex Assigned at Date Recorded Not on file documented as of this encounter Plan of Treatment Not on filedocumented as of this encounter Procedures Procedure Name Priority Date/Time Associated Diagnosis Comme nts SURGICAL PATHOLOGY Today 04/20/2022 13:00 Vascular disorder of Results for this EDT intestine, procedure are i n unspecified (HCC ) the results Collagenous colitis section. documented in this encounter Results SURGICAL PATHOLOGY (04/20/2022 13:00 EDT) Note to Patient The following [facility] MEDICAL pathology results CENTER have been interpreted LABORATORY by your pathologist SERVICES and may be available to you before your health provider has had the opportunity to review them. Please allow time for your provider to receive these results and explore management options, if applicable. Final Diagnosis A. COLON, CECUM, BIOPSY: [facility] MEDICAL - Colonic mucosa with no significant diagnostic abnorm alities. CENTER LABORATORY B. COLON, 80 CMS, BIOPSY: SERVICES - Colonic mucosa with no significant diagnostic abnorm alities. C. COLON, 60 CMS, POLYP, BIOPSY: - Colonic mucosa with no significant diagnostic abnorm alities. - No definite polyp identified. - Deeper sections x3 examined. D. COLON, 60 CMS, BIOPSY: - Colonic mucosa with no significant diagnostic abnorm alities. E. COLON, 40 CMS, BIOPSY: - Colonic mucosa with no significant diagnostic abnorm alities. F. RECTUM, BIOPSY: - Rectal mucosa with no significant diagnostic abnorma lities. Attestation By the signature [facility] MEDICAL Electronica lly below, the attending CENTER signed by Radu Patton, physician certifies LABORATORY Meet Steel MD on that they have 1) SERVICES 04/22/2022 at 0849 personally conducted a gross and/or microscopic examination of the described specimen(s), and/or personally interpreted the results of laboratory testing of the described specimen(s), and 2) personally rendered or confirmed the above diagnosis. Clinical History H/O ischemic colitis + colla genous; clinical diagnosis code: K55.9, K52.831 [facility] SERVICES Gross Description A. [facility] MEDICAL Received in formalin elaine d with proper patient identification (initials P, C) and 1. Cecal Bx is a chaudhry-brown tissue (0.8 x 0.2 x 0.1 cm). Entirely submitted in A1. CENTER LABORATORY B. SERVICES Received in formalin elaine d with proper patient identification (initials P, C) and 2. Bx 80 cm is a chaudhry-brown tissue (0.5 x 0.4 x 0.1 cm). Entirely submitted in B1. C. Received in formalin elaine d with proper patient identification (initials P, C) and 3. Bx polyp at 60 cm is a chaudhry-brown tissue (0.5 x 0.2 x 0.1 cm). Entirely submitted in C1. D. Received in formalin elaine d with proper patient identification (initials P, C) and 4. Bx at 60 cm is a chaudhry tissue (0.6 x 0.5 x 0.1 cm). Entirely submitted in D1. E. Received in formalin elaine d with proper patient identification (initials P, C) and 5. Bx at 40 cm is a chaudhry-brown tissue (0.4 x 0.4 x 0.1 cm). Entirely submitted in E1. F. Received in formalin elaine d with proper patient identification (initials P, C) and 6. Rectal Bx is a chaudhry-brown tissue (0.7 x 0.3 x 0.1 cm). Entirely submitted in F1. ELISSA CHAPA(ASCP) 04/21/2022 8:17 Performing Lab [facility] SERVICES Scanned Images [facility] SERVICES Specimen Tissue - Specimen from rectum (specimen) Tissue specimen (specimen) - Entire colo n (body structure) Tissue specimen (specimen) - Entire colo n (body structure) Tissue specimen (specimen) - Entire colo n (body structure) Tissue specimen (specimen) - Entire colo n (body structure) Tissue specimen (specimen) - Specimen fr om rectum (specimen) Performing Organization Address City/State/ZIP Code Phon e Number [facility] [address] [place] [address] SERVICES documented in this encounter Visit Diagnoses Diagnosis Vascular disorder of intestine, unspecif ied (HCC) Collagenous colitis Other and unspecified noninfectious marcos roenteritis and colitis documented in this encounter Care Teams Lead Technical Writer Relationship Specialty Start Date End Date Camelia Crockett, ABUNDIO PCP - General Family Medicine - Primary 09/30/[address] [place] [phone] documented as of this encounter
--- OUTSIDE RECORDS SUMMARY | 2022-05-20 00:27 | XMS_ITS | Clinical Summary ---
:1960 Author Organization [facility] Address [address] [place] [address] Care Team Providers Name Role Phone Camelia Crockett TRANSITION MANAGER Primary Care Provider Encounters Date Type Specialty Care Team Description 04/20/2022 Lab Requisition Clinical Laboratory Consuelo Amato cular disorder of intestine, unspecified (HCC); M, DO Collagenous col itis from Last 3 Months Social History Tobacco Use Types Packs/Day Years Used Date Never Assessed Sex Assigned at Date Recorded Not on file Plan of Treatment Health Maintenance Due Date Last Done Comments Hepatitis C Screen 1960 COVID-19 Vaccine (#1) 1967 Procedures Procedure Name Priority Date/Time Associated Diagnosis Comme nts SURGICAL PATHOLOGY Today 04/20/2022 13:00 Vascular disorder of Results for this EDT intestine, procedure are i n unspecified (HCC ) the results Collagenous colitis section. from Last 3 Months Results SURGICAL PATHOLOGY (04/20/2022 13:00 EDT) Note to Patient The following [facility] MEDICAL pathology results CENTER have been interpreted LABORATORY by your pathologist SERVICES and may be available to you before your health provider has had the opportunity to review them. Please allow time for your provider to receive these results and explore management options, if applicable. Final Diagnosis A. COLON, CECUM, BIOPSY: [facility] MEDICAL - Colonic mucosa with no [...] diagnostic abnorma lities. Attestation By the signature [facility] MEDICAL Electronica lly below, the attending CENTER signed by Radu Patton physician certifies LABORATORY Meet Steel MD on that they have 1) SERVICES 04/22/2022 at 0849 personally conducted a gross and/or microscopic examination of the described specimen(s), and/or personally interpreted the results of laboratory testing of the described specimen(s), and 2) personally rendered or confirmed the above diagnosis. Clinical History H/O ischemic colitis + colla genous; clinical diagnosis code: K55.9, K52.831 [facility] SERVICES Gross Description A. [facility] MEDICAL Received in formalin elaine d [...] F1. ELISSA CHAPA(ASCP) 04/21/2022 8:17 Performing Lab [facility] LAB [facility] SERVICES Scanned Images [facility] SERVICES Specimen Tissue - Specimen from rectum (specimen) Tissue specimen (specimen) - Entire colo n (body structure) Tissue specimen (specimen) - Entire colo n (body structure) Tissue specimen (specimen) - Entire colo n (body structure) Tissue specimen (specimen) - Entire colo n (body structure) Tissue specimen (specimen) - Specimen fr om rectum (specimen) Performing Organization Address City/State/ZIP Code Phon e Number [facility] [address] [place] [address] SERVICES from Last 3 Months Insurance Payer Benefit Plan / Subscriber ID Effective Phone Address T ype Group Dates BCBS [place] [id number] 2020-[facility] [phone] [phone] [place] [address] Kevon,Ilana Personal/Family Self 1960 [address] (Home) [place] [address] Care Teams Customer Service Rep Relationship Specialty Start Date End Date Camelia Crockett, TRANSITION MANAGER PCP - General Family Medicine - Primary 09/30/[address] [place] [phone]
--- OUTSIDE RECORDS SUMMARY | 2022-05-20 00:27 | XMS_ITS | Encounter Summary ---
:1960 Author Organization [facility] Address [address] [place] [address] Care Team Providers Name Role Phone Camelia Crockett Christin LABOR CUSTODIAN Primary Care Provider Encounter Details Date Type Department Care Team Description 11/01/2021 Lab Requisition [facility] Outr Resulting Lab, Pathology & Laboratory Provider [facility] [address] [place] [address] Social History Tobacco Use Types Packs/Day Years Used Date Never Assessed Sex Assigned at Date Recorded Not on file documented as of this encounter Plan of Treatment Not on filedocumented as of this encounter Procedures Procedure Name Priority Date/Time Associated Diagnosis Comme nts HOLD SST Today 10/30/2021 11:55 Results for this EST procedure are i n the results section. ANCA, IFA Today 10/30/2021 11:55 Results for this EST procedure are i n the results section. ANTI NUCLEAR AB Today 10/30/2021 11:55 Results for this (ROBIN), IFA EST procedure are i n the results section. documented in this encounter Results HOLD SST (10/30/2021 11:55 EST) Pathologist Sig nature Hold Hold [facility] LABORATOR Y SERVICES Specimen Blood - Venous blood (substance) Performing Organization Address City/State/ZIP Code Phon e Number [facility] [address] [place] [address] SERVICES ANCA, IFA (10/30/2021 11:55 EST) Lab ANCA Negative Negative [facility] MEDICAL Interpretation Comment: CENTER LABORATORY ROBIN Positive, suggest follow -up ROBIN testing if clinically indicated. Cannot rule out Atypical ANCA (A-ANCA). SERVICES No titer performed, ANCA Screen is negative. Results were obtained with t Liquid ScenariosVA NOVA Lite ANCA kit by indirect immunofluorescence. Specimen Blood - Venous blood (substance) Performing Organization Address City/[facility]/ZIP Code Phon e Number [facility] [address] [place] [address] SERVICES (ABNORMAL) ANTI NUCLEAR AB (ROBIN), IFA (10/30/2021 11:55 EST) ROBIN Interpretation Positive (A) Negative [facility] Comment: CENTER LABORATORY For titers greater than or e qual to 1:160 (except the centromere and nucleolar patterns) it is recommended that specific follow-up autoantibody testing ??(such as for dsDNA and Extractable Nuclear Antig SERVICES ens) be performed on all diffuse and/or speckled patterns NOTE: For add-on testing dsD NA is stable for 7 days refrigerated while Extractable Nuclear Antigens are only stable for 48 hours refrigerated. ROBIN Titer and Pattern 1:[address] LABORATORY SERVICES Specimen Blood - Venous blood (substance) Narrative [facility] SERVICES - 11/02/2021 14:27 EST Results were obtained with the INOVA NOV A Lite HEp-2 ROIBN Kit by indirect immunofluorescence. Performing Organization Address City/[facility] Code Phon e Number [facility] [address] [place] [address] SERVICES documented in this encounter Visit Diagnoses Not on filedocumented in this encounter Care Teams Mold Shaker Relationship Specialty Start Date End Date Camelia Crockett, ABUNDIO PCP - General Family Medicine - Primary 09/30/[address] [place] [phone] documented as of this encounter
--- OUTSIDE RECORDS SUMMARY | 2022-05-20 00:28 | XMS_ITS | Encounter Summary ---
:1960 Author Organization [facility] Address [address] [place] [address] Care Team Providers Name Role Phone Unknown, Provider Primary Care Provider Encounter Details Date Type Department Care Team Description 07/12/2017 Results Only [facility]- Brandon Stanley, [facility] [phone] [place] [address] [place] [address] (Wo rk) Social History Tobacco Use Types Packs/Day Years Used Date Never Assessed Sex Assigned at Date Recorded Not on file documented as of this encounter Plan of Treatment Not on filedocumented as of this encounter Procedures Procedure Name Priority Date/Time Associated Diagnosis Comme nts PAP TEST- RESULT Routine 07/12/2017 0:00 EDT Resu lts for this ONLY procedure are i n the results section. documented in this encounter Results PAP TEST- RESULT ONLY (07/12/2017 0:00 EDT) Pathology Report: CYTOPATHOLOGY REPORT [facility] Reports generated via electronic interface contain nik ginal data; SERVICES however they are lacking the format of the original re port. Caution should be taken when reading/interpreting unfo rmatted reports. Name: ? LONDON GOMEZ ? Accession #: ? [id number] ? : ? 1960 (Age: 57 ) ??F ?Collect Date: ? 07/12/2017 ? Location: ? [facility] ? Receive Date: ? 07/14/20 17 ? Provider: BRANDON WILDER BLAST FURNACE SUPERVISOR Copy to: ? Final Report SPECIMEN ADEQUACY ? Satisfactory for Evaluation - transformation zone component present - scant squamous epithelial component secondary to exc essive blood GENERAL CATEGORIZATION ? Negative for Intraepithelial Lesion or Malignan cy ?? Last Menstrual Period: 06/14/2017 Hormonal/Contraceptive status: Intrauterine device: Tyler pressley Specimen/Source: ??Pap Test, Cervix, ThinPrep Imaging System with manual evaluation Document reviewed and electronically signed by: ? Bro Hazel, PALLAVI(ASCP) ? Report ??Date: 07/27/2017 14:09 HPV with Pap Test ? Date Ordered: ? 07/27/2017 ? Status: ?? Signed Out ?Date Complete: ? 07/28/2017 ? By: ??Sy stem Interface ? Date Reported: ? 07/28/2017 ? Interpretation RESULT: Negative for HPV. No E6 or E7 mRNA is detected from HPV types 16,18,31,3 3,35, 39,45,51,52,56,58,59,66, and 68 by certified caregiver media rasheed amplification. Comments Document reviewed and electronically signed by: ? System Interface ? Report date: 07/28/2017 By the signature above, the attending physician certif ies that he/she has personally conducted a gross and/or microscopic examin ation of the described specimens and rendered or confirmed the above diagnosi s. End of Report Specimen Performing Organization Address City/State/ZIP Code Phon e Number [facility] [address] [place] [address] SERVICES documented in this encounter Visit Diagnoses Not on filedocumented in this encounter Care Teams Household Appliances Service Technician Relationship Specialty Start Date End Date Unknown, Provider, PCP - General 01/19/17 09/29/21 documented as of this encounter
--- OUTSIDE RECORDS SUMMARY | 2022-05-20 00:28 | XMS_ITS | Encounter Summary ---
:1960 Author Organization Health system Address [address] [place] [address] Care Team Providers Name Role Phone Camelia Crockett BLOCKER AND POLISHER Primary Care Provider Encounter Details Date Type Department Care Team Description 10/22/2021 Lab Requisition [facility] Outr Resulting Lab, Pathology & Laboratory Provider [facility] [address] [place], [place] [address] Social History Tobacco Use Types Packs/Day Years Used Date Never Assessed Sex Assigned at Date Recorded Not on file documented as of this encounter Plan of Treatment Not on filedocumented as of this encounter Procedures Procedure Name Priority Date/Time Associated Diagnosis Comme nts OVA/PARASITE EXAM Routine 10/22/2021 9:00 EST Res ults for this procedure are i n the results section. documented in this encounter Results OVA/PARASITE EXAM (10/22/2021 9:00 EST) Pathologist Sig nature Parasite No ova and parasites [facility] seen. LABORATORY SERVICES Specimen Feces - Specimen from rectum (specimen) Narrative [facility] LABORATORY SERVICES - 10/26/2021 13:54 EST (If Cryptosporidium, Cyclospora, or Micr osporidium are suspected, specific tests must be requested.) Single negative specimen does not rule out the possibility of a parasitic infection. Performing Organization Address City/State/ZIP Code Phon e Number [facility] LABORATORY [address] [place] [address] SERVICES documented in this encounter Visit Diagnoses Not on filedocumented in this encounter Care Teams Phonograph Mechanic Relationship Specialty Start Date End Date Camelia Crockett, BLOCKER AND POLISHER PCP - General Family Medicine - Primary 09/30/[address] [place] [phone] documented as of this encounter
--- OUTSIDE RECORDS SUMMARY | 2022-05-20 00:28 | XMS_ITS | Encounter Summary ---
:1960 Author Organization [facility] Address [address] [place] [address] Care Team Providers Name Role Phone Unknown, Provider Primary Care Provider Camelia Crockett NP Primary Care Provider Encounter Details Date Type Department Care Team Description 08/12/2020 Lab Requisition [facility] Lashell Irvin E ncounter for other Pathology & BIOINFORMATICS SPECIALIST general examination Laboratory Medicine [address] [place], [place] [address] [facility] [phone] [place], [place] [id number] Social History Tobacco Use Types Packs/Day Years Used Date Never Assessed Sex Assigned at Date Recorded Not on file documented as of this encounter Plan of Treatment Not on filedocumented as of this encounter Procedures Procedure Name Priority Date/Time Associated Comments Diagnosis PAP TEST Today 08/11/2020 14:00 Encounter for other Resu lts for this EDT general examination procedur e are in the results section. HUMAN PAPILLOMAVIRUS Today 08/11/2020 14:00 Encounter for ot her Results for this (HPV) DETECTION-HIGH EDT general examination procedure are in RISK TYPES the results section. documented in this encounter Results HUMAN PAPILLOMAVIRUS (HPV) DETECTION-HIGH RISK TYPES (08/11/2020 14:00 EDT) Human Papillomavirus NegativeComment: No Negative [facility] MEDICAL (HPV) Detection-High E6 or E7 mRNA is CENTER LABORATOR Y Types detected from HPV SERVICES types 16,18,31,33,35,39,45 ,51,52,56,58,59,66, and 68 by level glass vial filler mediated amplification. Specimen Pap Test - Cervix and/or Endocervix Performing Organization Address City/State/[facility] Code Phon e Number [facility] [address] [place] [address] SERVICES PAP TEST (08/11/2020 14:00 EDT) Specimens A. Cervix and/or [facility] MEDICAL Endocervix , ThinPrep CENTER Imaging System with LABORATORY Manual Evaluation SERVICES Specimen Adequacy Satisfactory for [facility] MEDICAL Evaluation - CENTER transformation zone LABORATORY component present SERVICES General Negative for [facility] intraepithelial [place] lesion or malignancy LABORATORY SERVICES Attestation . [facility] CENTER signed by ANJANA Chavis CT(ASCP) on SERVICES 08/20/2020 at 1 529 Clinical History See below [facility] SERVICES HPV The result for the Human Pap illomavirus (HPV) Detection-High Risk Types is Negative. No E6 or E7 mRNA is detected from HPV types 16,18,31,33,35,39,45,51,52,56,58,59,66, and 68 by level glass vial filler mediated [facility] amplification.Testing was pe rformed on specimen [id number] and was resulted on 08/20/2020 1508 EDT by CHRISTOPH, LAB INSTRUMENT RESULTS IN [facility] LABORATORY SERVICES Performing Lab [facility] LAB [facility] SERVICES Scanned Images [facility] SERVICES Specimen Pap Test - Cervix and/or Endocervix Performing Organization Address City/State/ZIP Code Phon e Number [facility] [address] [place] [address] SERVICES documented in this encounter Visit Diagnoses Diagnosis Encounter for other general examination documented in this encounter Care Teams Ranch Hand Relationship Specialty Start Date End Date Unknown, Provider, PCP - General 01/19/17 09/29/21 Camelia Crockett, ABUNDIO PCP - General Family Medicine - Primary 09/30/[address] [place] [phone] documented as of this encounter
--- NOTE | 2022-05-20 09:10 | DI.MRI_ITS ---
Exam(s) MR UPPER JOINT RT WO EXAM: MR UPPER JOINT RT WO CLINICAL HISTORY: R SHOULDER PAIN, rt rotator cuff tear, M75.101 TECHNIQUE: Multiplanar multisequence MRI of the shoulder was performed. COMPARISON: CR XR SHOULDER RT COMPLETE 2+V from 03/03/2022 FINDINGS: MARROW:There is no evidence of fracture, Hill-Sachs deformity, nor ominous osseous lesions. ROTATOR CUFF MECHANISM: AC JOINT/ACROMIUM: Minimal degenerative changes. No downgoing osteophytes.. There is no evidence of os acromiale. Supraspinatus: Mild increased signal insertional foot pad aspect. Small focus of possible partial-th ickness tear this level. Small hypoechoic focus which is probably corresponding to the calcium seen at this level on recent plain films. There does not appear to be a full-thickness tear of the supras pinatus. No retraction musculotendinous junction. No prominent atrophy. Infraspinatus: Intact. No evidence of tear nor muscle atrophy. There is a small degenerative subart icular cyst in the humeral head subjacent to the insertional aspect of the infraspinatus. Teres Minor: Intact. No evidence of tear nor muscle atrophy. Subscapularis/anterior cuff: Intact. No abnormal signal at the level of the multipennate insertional fibers. No significant tear nor atrophy. BICEPS TENDON: Positioned within the intertubercular groove. No displacement. However, on the coronal images there appears to be some splitting of the biceps tendon within the int ertubercular groove. This is possibly related to artifact as seen on axial images. There may been p rior instrumentation of the shoulder. LABRUM: There is no abnormal signal in the superior labrum posterior to the biceps insertion. Test Baker ior labrum also appears intact. Anterior labrum intact. Inferior labrum intact. Inferior glenohume ral ligament appears intact GLENOHUMERAL JOINT: No joint effusion nor obvious loose intra-articular bodies. No chondral defects. No osteophytes. No degenerative subarticular cysts in the osseous glenoid. QUADRILATERAL SPACE: No evidence of mass in the region of the axillary nerve and dorsal circumflex hu meral vessels. Visualized triceps muscle at this level appears unremarkable. IMPRESSION: 1. Findings in the supraspinatus tendon at foot pad insertional aspect consistent with an element sera cific tendinitis small foci of signal dropout in the foot pad insertional aspect corresponding to wha t is seen on the recent plain films of 03/03/2022. There does not appear to be a full-thickness tear . There is a small area of articular surface partial thickness tearing just above the greater tubero sity. No atrophy. Other 3 muscles of the rotator cuff mechanism are intact. 2. Either split tearing or artifact in the long head biceps within the intertubercular groove. Corre lation with prior surgical history recommended as there appears to be some susceptibility artifact at this level on the axial images. 3. No obvious labral tearing. No evidence of paralabral cyst. DATA REPOSITORY:
== END ==
PROVIDERS: PCP Student in an Organized Health Care Education/Training Program; Visit Provider Student in an Organized Health Care Education/Training Program
DX: M75.101 Unspecified rotator cuff tear or rupture of right shoulder, not specified as traumatic (principal); S46.111A Strain of muscle, fascia and tendon of long head of biceps, right arm, initial encounter; X58.XXXA Exposure to other specified factors, initial encounter
CPT/HCPCS: 73221

== ENCOUNTER → 2022-10-18 01:45 | Outpatient (CLI) | payer BC, SELFPAY ==
--- NOTE | 2022-10-18 08:45 | DI.MAMMO_ITS ---
Exam(s) MAMMO SCREENING EXAM: MAMMO SCREENING CLINICAL HISTORY: screening TECHNIQUE: Mammograms were interpreted according to the usual protocol including computer analysis w [employer] CAD system, tomosynthesis and C-view imaging. COMPARISON: 2012 through 2020 FINDINGS: The breasts are composed of heterogeneously dense fibroglandular densities, Breast Density category C . No suspicious masses or suspicious microcalcifications are seen. No skin thickening or abnormal axillary lymph nodes are seen. There has been no significant change from prior exams. IMPRESSION: BI-RADS Category 1, Negative mammogram. Yearly screening mammography is recommended. Breast Density Category C, heterogeneously Dense. The mammogram demonstrates the patient's breast tissue is dense. Dense breast tissue is very common a nd is not abnormal but dense breast tissue can make it harder to find cancer on a mammogram. Also, de nse breast tissue may increase breast cancer risk. This information about the result of the mammogram report was provided to the patient to raise their awareness. Use this report when you speak with the patient about their risks for breast cancer, which includes their family history. At that time, you may recommend additional screening tests (Ultrasound or MRI) as they might be useful based on their r isk. A negative radiographic report should not delay biopsy if a dominant or clinically suspicious mass is present. Up to ten percent of cancers are not identified on mammography. A negative report may reinforce clinical impression. Adenosis and dense breasts may obscure an underlying neoplasm. False positive reports average 6 to 10%.
== END ==
PROVIDERS: PCP Student in an Organized Health Care Education/Training Program; Visit Provider Obstetrics & Gynecology
DX: Z12.31 Encounter for screening mammogram for malignant neoplasm of breast (principal)
CPT/HCPCS: 77063; 77067

== ENCOUNTER 2023-01-27 11:27 | Outpatient (CLI) | payer BC, SELFPAY ==
--- NOTE | 2023-01-27 10:45 | DI.CT_ITS ---
Exam(s) CT ABDOMEN PELVIS W EXAM: CT ABDOMEN PELVIS W CLINICAL HISTORY: Left abd pain,loose stools,cramping,h/o colitis,r10.9. TECHNIQUE: Imaging Protocol: Axial computed tomography images with coronal and sagittal reformatted images were created and reviewed CONTRAST MATERIAL: Intravenous: Omnipaque 350 Contrast volume:100 ml Oral: yes / COMPARISON: CT CT ABDOMEN PELVIS W from 10/30/[address] ABDOMEN PELVIS CTA from 11/12/2021 FINDINGS: ABDOMEN: Lung Bases: Normal where visualized. Liver: Normal density. No measurable mass. Gallbladder and biliary tract: No radiodense calculus or dilation. Pancreas: Normal density, no abnormal calcifications or inflammatory process. Spleen: Normal. Kidneys: Normal size, contour and axis. No radiodense stones or obstructive uropathy. No suspicious m asses seen. Adrenal glands: No masses seen. Abdominal Aorta: Abdominal portion non-dilated. Soft tissues: Unremarkable. PELVIS: Bladder: No gross wall thickening. No calculi.No focal mass. Bowel: The administered oral contrast extends to the level of the terminal ileum. The colon is not y et opacified with oral contrast. The ascending and transverse colon have a normal appearance, with a normal quantity of stool and no significant wall thickening. The colon shows wall thickening from th e D upper descending colon through the proximal sigmoid. Findings are consistent with colitis.. Yong endix normal. Peritoneal cavity: No ascites, collection or mesenteric inflammatory response. Bones: Within normal limits for age. Reproductive organs: Within normal limits. Lymph nodes: Unremarkable. Impression: Findings consistent with colitis of the descending and sigmoid colon. RADIATION DOSE DELIVERED: 910.35mGy.cm Total DLP DATA REPOSITORY: All CT scans at this facility are submitted to the National Radiology Data Registry (NRDR) Dose Index Registry (DIR) with the [employer] (ACR). RADIATION OPTIMIZATION: All CT scans at this facility use at least one of these dose optimization te chniques: automated exposure control; mA and/or kV adjustment per patient size (includes targeted exa ms where dose is matched to clinical indication); or iterative reconstruction.
[2023-01-27] MEDS: Barium Sulfate 2% W/V-Creamy Vanilla Smoothie 450 ML BTL 900 ML PO (10:59)
[2023-01-27 11:32] LABS: CREATININE 0.7 mg/dL (0.55-1.02); Estimated GFR 98.95 (mL/min/1.73m2)
[2023-01-27] MEDS: Omnipaque 350 MG/ML 500 ML BTL-Imaging package 100 ML IJ (13:11)
[2023-01-27] MEDS: Normal Saline - Diluent 50 ML VIAL IJ (13:12)
== END 2023-01-27 11:47 ==
LOC: DI 11:29
PROVIDERS: PCP Nurse Practitioner; Visit Provider Nurse Practitioner
DX: R10.32 Left lower quadrant pain (principal); R19.5 Other fecal abnormalities; Z87.19 Personal history of other diseases of the digestive system; Z01.812 Encounter for preprocedural laboratory examination; K52.89 Other specified noninfective gastroenteritis and colitis
CPT/HCPCS: 36415; 74177; 82565

== ENCOUNTER 2023-01-31 15:09 | Outpatient (CLI) | payer BC, SELFPAY ==
[2023-01-31 15:26] LABS: Abs Immature Grans 0.01 10^3/uL (0.0-0.06); Absolute Basophil Count 0.05 10^3/uL (0.0-0.2); Absolute Eosinophil Count 0.19 10^3/uL (0.0-0.7); Absolute Lymphocyte Count 2.12 10^3/uL (1.2-3.4); Absolute Monocyte Count 0.46 10^3/uL (0.1-0.8); Absolute Neutrophil Count 4.78 10^3/uL (1.2-6.7); Basophils % 0.7; Eosinophils % 2.5; HCT 42.8 % (36.0-46.0); HGB 14.5 g/dL (11.2-15.7); Immature Grans % 0.1; Lymphocytes % 27.9; MCH 31.5 pg (27.0-33.0); MCHC 33.9 % (32.0-36.0); MCV 93 fL (80-95); MPV 9.1 fL (8.0-11.0); Neutrophils % 62.8; Platelet Count 340 10^3/uL (130-400); RBC 4.61 10^6/uL (3.93-5.22); RDW 12.6 % (11.7-14.6); RDW-SD 42.9 fL; WBC 7.61 10^3/uL (4.4-10.8)
[2023-01-31 15:46] LABS: C-Reactive Protein 0.56 mg/dL (0.0-0.3)
== END 2023-01-31 15:10 | disposition home or self-care (01) ==
LOC: LBO 15:11
PROVIDERS: PCP Nurse Practitioner; Visit Provider Surgery
DX: K52.831 Collagenous colitis (principal); R19.7 Diarrhea, unspecified; R93.3 Abnormal findings on diagnostic imaging of other parts of digestive tract; Z79.899 Other long term (current) drug therapy
CPT/HCPCS: 36415; 85025; 86140

== ENCOUNTER 2023-02-01 15:09 | Outpatient (REF) | payer BC, SELFPAY ==
[2023-02-02 13:46] LABS: Campylobacter PCR Negative (Negative); Salmonella PCR Negative (Negative); Shiga Toxin PCR Negative (Negative); Shigella/Enteroinvasive Ecoli Negative (Negative)
[2023-02-03 16:17] LABS: Calprotectin <50.0 mcg/g
[2023-02-03 17:34] LABS: Pancreatic Elastase, F 470 mcg/g
== END 2023-02-01 15:10 | disposition home or self-care (01) ==
LOC: LBN 15:09
PROVIDERS: PCP Nurse Practitioner; Visit Provider Surgery
DX: E78.5 Hyperlipidemia, unspecified; K52.831 Collagenous colitis; K55.9 Vascular disorder of intestine, unspecified; R19.7 Diarrhea, unspecified; R93.3 Abnormal findings on diagnostic imaging of other parts of digestive tract; Z79.899 Other long term (current) drug therapy; Z87.891 Personal history of nicotine dependence; K58.2 Mixed irritable bowel syndrome
CPT/HCPCS: 87493; 87505; 82656; 83993

== ENCOUNTER 2023-03-22 07:37 | Day surgery (SDC) | payer BC, SELFPAY ==
--- NOTE | 2023-03-21 19:40 | PDOC.DSDIS_ITS ---
Date of service: 03/22/23 Time of Service: 10:15 Discharge Plan Disposition Patient Disposition: Home Condition: Good Discharge Details Reason For Visit: colon biopsys Attending Provider: Consuelo Amato Primary Care Provider: Camelia Crockett Home Meds and New Rx's Prescriptions: No Action estradiol 1 mg tablet 1 mg PO DAILY Qty: 90 3RF progesterone micronized [Prometrium] 100 mg capsule 100 mg PO DAILY Qty: 90 3RF cholecalciferol (vitamin D3) 10 mcg (400 unit) capsule 400 unit PO DAILY Patient Comments: Pt unsure of dose zinc 50 mg tablet 50 mg PO DAILY PRN Patient Comments: pt unsure of dose B Complex Plus Vitamin C 62-46-84-5-300 mg capsule 1 cap PO DAILY Rx Instructions: give with food (meal/snack) triamcinolone acetonide 0.1 % ointment 1 applic topical DAILY Qty: 30 0RF Rx Instructions: Trial for scalp lesion; 1 FTU BID x 4 weeks lorazepam 0.5 mg tablet 0.5 mg PO DAILY PRN PRN (Reason: anxiety for flights) Qty: 20 0RF budesonide 3 mg capsule,delayed,extend.release 3 mg PO DAILY Qty: 21 0RF Rx Instructions: 2 tab po daily for 2 weeks, then 1 tab daily for 2 weeks magnesium citrate 100 mg tablet 400 mg PO HS Rx Instructions: Take 2 tablets by mouth at bedtime. Discharge Instructions Additional Instructions: DSU Colonoscopy Post- Op Instructions Instructions for Everyone who is given Anesthesia: For your safety, please do the following for the next twenty-four (24) hours: *Do Not operate a motor vehicle (car, truck, motorcycle, etc.) *Do Not drink alcoholic beverages or use any recreational drugs for the first 24 hours or while taking pain medications. The medications in your body may have a reaction that can be dangerous. *Do Not make any important decisions or sign any important papers. Findings: mild inflammation from 20cm to rectum. Bx taken Continue 6mg budesonide for 3 wks and than 3mg for 3wks. More Rx sent to [facility]. Follow up: 2 weeks 1. No lifting over 20 pounds or strenuous activity for the first 24 hours after your procedure. After 24 hours there are no restrictions on your activity but you may feel fatigued for a few days. 2. After you arrive home you may have a light meal and return to your normal diet as you can tolerate it without feeling sick to your stomach. 3. You may have a bloated, gaseous feeling in your belly (abdomen) after a colonoscopy. Passing gas and belching will help. Walking or lying down on your left side with your knees flexed may relieve the discomfort. Call the office at [phone] (Office) or [phone] (Hospital) right away if you notice any of the following: a.Vomiting of blood or ?coffee ground stools?. b.Rectal bleeding 1Tbsp, blood clots or continuous bleeding. c.Severe belly (abdominal) pain. d.A hard distended belly (abdomen) and an inability to pass gas. 4. Please don?t expect to have a normal BM (bowel movement) for 2-3 days after your procedure. 5. If there are questions regarding the findings of your procedure, please contact your doctor 6. If you are unable to contact your doctor with a problem, contact the hospital at [phone]. 7. Continue all your regular medications unless directed otherwise. I understand the above instructions and have no questions. Signature of Patient or Adult Escort Name of Responsible Adult Escort Signature of Nurse Date/Time Activity:: see above Diet:: see above Discharge Orders Discharge Orders: Discharge Order (Routine); Ordered 03/22/23 Ordered By: Consuelo Amato DS: Diagnosis Discharge Diagnosis (1) Acute diarrhea: Status: Acute Asessment and Plan: The patient is seen and examined after their colonoscopy.? The patient has been able to pass gas.? They are not having abdominal pain.? They have been able to tolerate liquids and a snack.? They do not have any nausea or vomiting.? They are not having any chest pain or shortness of breath.??? They are not having any rectal bleeding..? Their vital signs have been stable-see nursing notes. We discussed findings during their colonoscopy, and any biopsies that were done/polyps that were removed. The patient will be sent a letter with any biopsy results, and when to repeat the colonoscopy.-see discharge instructions. Patient was given explicit instructions to follow-up regarding colonoscopy-refer to discharge instructions.? We reviewed resumption of medications. Patient verbalized understanding and discharged in stable and satisfactory condition- See nursing notes. (2) Collagenous colitis: Status: Acute (3) Former smoker: Status: Acute (4) Abnormal CT scan, colon: Status: Acute
[2023-03-22 08:00] VITALS: BP 113/88; PULSE 62; RESP 18; TEMP 36.5; O2SAT 100
[2023-03-22] MEDS: Lactated Ringers 1,000 ML 80 ML IV (08:50)
--- NOTE | 2023-03-22 09:31 | W.ANESPRE ---
General Info Date of Service Date Performed: 03/22/23 Height: 5 ft 6 in Weight: 72.1 kg Body Mass Index (BMI): 25.6 Surgical Procedure: Operation Date: 03/22/23 09:55 Proposed Procedure Side Surgeon p Flexible Sigmoidoscopy w/Biopsy Consuelo Amato DO Meds Allergies and Home Medications Allergies Allergy/AdvReac Type Severity Reaction Status Date / Time No Known Drug Allergies Allergy Verified 03/22/23 08:06 Home Medication Medication Instructions Recorded magnesium citrate 100 mg tablet 400 mg PO HS 01/04/19 cholecalciferol (vitamin D3) 10 400 unit PO DAILY 08/13/21 mcg (400 unit) capsule zinc 50 mg tablet 50 mg PO DAILY PRN 08/13/21 vitamin B comp and C no.3 15 mg-10 1 cap PO DAILY 11/12/21 mg-50 mg-5 mg-300 mg capsule (B Complex Plus Vitamin C) triamcinolone acetonide 0.1 % 1 applic topical DAILY #30 grams 06/24/22 topical ointment estradiol 1 mg tablet 1 mg PO DAILY #90 tabs 08/16/22 progesterone micronized 100 mg 100 mg PO DAILY #90 caps 08/16/22 capsule (Prometrium) lorazepam 0.5 mg tablet 0.5 mg PO DAILY PRN PRN anxiety 11/24/22 for flights #20 tabs budesonide 3 mg 3 mg PO DAILY #42 caps 03/16/23 capsule,delayed,extended release Current Visit Medications: Current Medications Generic Name Dose Route Start Last Admin Trade Name Freq PRN Reason Stop Dose Admin Hyoscyamine Sulfate 0.125 mg 03/22/23 09:01 Hyoscyamine 0.125 Mg Sl/Oral/Chew SL 04/21/23 09:00 DIRECTED PRN Ringer's Solution 1,000 mls @ 80 mls/hr 03/22/23 06:00 03/22/23 08:50 IV 03/22/23 23:59 80 mls/hr INFUSION CATALINO Administration IV Miscellaneous Supplies 1 each 03/22/23 06:00 Iv Access IV 03/22/23 23:59 DIRECTED CATALINO Ondansetron HCl 4 mg 03/22/23 09:01 Ondansetron 4 Mg/2 Ml Vial IVP 04/21/23 09:00 Q4H PRN PRN Nausea / Vomiting Sodium Biphosphate/Sodium Phosphate 133 ml 03/22/23 06:00 03/22/23 08:49 Na Phosphate Enema 133 Ml Btl IA 03/23/23 06:01 1 btl PREOP CATALINO Administration Sodium Chloride 0 ml 03/22/23 06:00 Normal Saline Flush 10 Ml Syr IV 03/22/23 23:59 PRN PRN Sodium Chloride 0 ml 03/22/23 06:00 Normal Saline 10 Ml Vial IJ 03/22/23 23:59 DIRECTED PRN Sterile Water 0 ml 03/22/23 06:00 Water,Injection,Sterile 10 Ml Vial IJ 03/22/23 23:59 DIRECTED PRN PFSH Active Problems Active Problems: Problem Status Onset Code Degenerative disc disease, cervical M50.[address] scan, colon R93.3 Acute diarrhea R19.7 Thyroid nodule incidentally noted on imaging study E04.1 Cervicalgia M54.2 Calcific tendinitis of right shoulder M75.31 Bursitis of right shoulder M75.51 Tendonitis of long head of biceps brachii of right shoulder M75.21 Cervical spinal stenosis M48.02 Headache, migraine G43.909 Myofascial pain syndrome M79.1 Tinnitus, bilateral H93.13 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 02/22/23 F/U Orthopaedics Sinusitis Surgical History Surgical History c-sections 2 History of colonoscopy Tobacco Smoking/Tobacco Use Status: Former Tobacco Use Passive smoking exposure: No Alcohol Alcohol Intake: current Alcohol intake frequency: holidays/special occasions only Alcohol type: wine Substance Use Substance use: Never Substance use type: does not use Prental History History 2 Para Hx # Term Pregnancies 2 Multiple births Hx # Pregnancies Ectopic pregnancies AB induced Hx Number of Living Children AB spontaneous Vital Signs and Lab Results Vital Signs Most Recent Vital Signs in EMR: Most Recent Vital Signs Temp Pulse Resp BP Pulse Ox 36.5 C 62 18 113/88 100 03/22/23 08:00 03/22/23 08:00 03/22/23 08:00 03/22/23 08:00 03/22/23 08:00 Lab Results Blood Type / Crossmatch: No Data to Display Complete Blood Count: No Data to Display Complete Metabolic Panel: No Data to Display Liver Function Panel: No Data to Display Coagulation Panel: No Data to Display Cardiac Panel: No Data to Display Arterial Blood Gas: No Data to Display Venous Blood Gas: No Data to Display Pancreas Panel: No Data to Display Thyroid Panel: No Data to Display Infectious Disease: No Data to Display Blood Cultures: No Data to Display Toxicology Panel: No Data to Display Anesthesia Assessment and Plan Anesthesia History Personal History: No History of Anesthesia Complications Family History: No Family History of Anesthesia Complications Exercise Tolerance Exercise Tolerance: Metabolic Equivalents>4 Pertinent Negatives Pertinent Negatives: No Symptoms of GERD Cardiac & Pulmonary Exam Cardiac Exam: Normal S1/S2 Heart Sounds Pulmonary Exam: Clear Bilateral Breath Sounds Implantable Cardiac Device Does patient have a Pacemaker or an ICD?: No Airway Exam Known Difficult Airway: No Mallampati Class: 2 Mouth Opening: Normal (> 3cm) Thyromental Distance: Greater than 3 cm Neck Range of Motion: Full ROM (Some mild stiffness but able to move without difficulty) Neck Circumference: Normal Teeth Condition: Normal Dentition ASA Classification ASA Score: ASA 2 Emergency Case?: No NPO Status NPO Status: NPO Clears >2 hours, Solids >8 hours Anesthesia Plan Resuscitation Status: Full Code Anesthesia Technique: General Anesthesia Airway Planned: Natural Airway Monitors Used: Standard Monitors
[2023-03-22 09:32] VITALS: BMI 25.6
--- NOTE | 2023-03-22 09:44 | BOWEL_PTH ---
PATIENT: Ilana Lund LOC: [facility] U#:[id number] AGE/SX: 62/F ROOM: RE03/22/[address]: Consuelo Amato : 1960 BED: DIS: 03/22/2023 SPEC #: [id number] RECD: 03/22/23 11:27 STATUS: FELIPE REBenja #: [id number] DANICA: 03/22/23 09:[address]: Consuelo Amato DEPT: Surgical Specimen RECD BY: Leti Dunn ENTERED: 03/22/23 11:35 SP TYPE: Bowel OTHR DR: Camelia Crockett, ESTEPHANIE Tissues: 1 - BIOPSY BOWEL 2 - BIOPSY BOWEL 3 - BIOPSY BOWEL 4 - BIOPSY BOWEL 5 - BIOPSY BOWEL 6 - BIOPSY BOWEL Procedures: GROSS AND MICRO LEVEL 4 Comments: [id number]
--- NOTE | 2023-03-22 09:53 | W.COLOREPORT ---
Date of service: 03/22/23 Time of Service: 09:53 Colonoscopy Report Date of procedure: 03/22/23 Pre-op diagnosis general: Collagenous colitis Post-op diagnosis procedure note: same Procedure: Flexible sigmoid Surgeon: Consuelo Amato Anesthesia Type: General:No Airway Estimated blood loss (mL): 1 Pathology: other Complications: None Disposition: same day Prep: Other Retraction Time: 5 Procedure Description: After informed consent was obtained the patient was taken to the procedure room and placed in a left decubitous position. Monitors were applied and a time out was done. The patients name, date of , procedure, allergies to medications and metal in their body was reviewed. The patient was then sedated. Once sedated and comfortable a rectal exam was done. External exam shows a few small external hemorrhoidal tags internal exam revealed a normal sphincter tone and no palpable masses. The scope was then introduced and retrofelexed. internal hemorrhoidal tags were identified. The scope was then advanced to the splenic flexure. The prep was BBPS 3 in for total of 3. The scope was then slowly retracted over 5 minutes back into the rectum. There are no polyps or diverticula visualized. From 20 cm to the rectum the mucosa has a cobblestoning appearance to it. There is loss of normal haustral markings. There are some mild edema of the mucosa. Biopsies were taken every 10 cm starting at 50 cm. all specimens are retrieved and no bleeding is noted. The scope was removed and the patient was woken up and taken back to Same day surgery in stable condition. The patient tolerated the procedure well and there were no immediate complications. Follow up: The patient should follow up in the office in 2 weeks time.
[2023-03-22 09:56] VITALS: BP 120/80; PULSE 61; RESP 18; TEMP 36.6; O2SAT 97
[2023-03-22 10:45] VITALS: BP 126/80; PULSE 53; RESP 16; TEMP 36.1; O2SAT 100
--- NOTE | 2023-03-22 10:49 | W.ANESPOSTOP ---
Postoperative Evaluation Date, Time and Location Date Performed: 03/22/23 Time Performed: 10:49 Patient Location: Day Surgery Unit Vital Signs Most Recent Imported Vital Signs: Most Recent Vital Signs Temp Pulse Resp BP Pulse Ox 36.6 C 61 18 120/80 97 03/22/23 09:56 03/22/23 09:56 03/22/23 09:56 03/22/23 09:56 03/22/23 09:56 Pain Score Most Recent Pain Score: Most Recent Pain Score Pain Level 0 03/22/23 09:56 Assessment Mental Status: Awake (Alert & Oriented to Patient Baseline) Airway and Respiratory Function: Patent airway with normal (patient baseline) respiratory exam Cardiovascular Function: Hemodynamically Stable Hydration Status: Adequately Hydrated Nausea & Vomiting: No Nausea or Vomiting Pain: Pt. Denies Any Pain Peripheral Nerve Block: Patient did not receive a nerve block
== END 2023-03-22 11:13 | disposition home or self-care (01) ==
PROVIDERS: PCP Nurse Practitioner; Visit Provider Surgery
PROC: 0DJD8ZZ Inspection of Lower Intestinal Tract, Via Natural or Artificial Opening Endoscopic (ICD-10-PCS; CPT 45330; principal; 2023-03-22 09:45)
DX: K52.831 Collagenous colitis; K64.8 Other hemorrhoids; K59.00 Constipation, unspecified; K63.89 Other specified diseases of intestine
CPT/HCPCS: 45331; 88305; J2001

== ENCOUNTER 2023-04-18 04:39 | Outpatient (CLI) | payer BC, SELFPAY ==
--- NOTE | 2023-04-18 14:00 | NS.NUTBLAN_ITS ---
Ilana was referred for nutritional counseling for colitis, bloating, diarrhea and pain. Has hx of migraines, stopped after menopause. Sister has Crohn's disease. Prior to 2021, had a stomach of steel. Has lost 10 lbs in last couple of months. Was dx with collagenous colitis in 2021. Ilana is very concerned about her daily stomach cramping, pain, occasional diarrhea and constipation. Recently had follow up colonoscopy and it was normal. Ilana reports she has tried a low fod map diet over the years with no relief. Recently put on cipro for 2 weeks in January and symptoms returned. Suspect, Ilana has small bowel bacterial overgrowth and /or IBS. Provided information on autoimmune diet (similar to Fodmap but no nightshades) to see if she gets any relief. Reviewed that anti anxiety medications/techniques may be helpful. Estrogen therapy may also help her digestion. Recommend referral to GI doc for full work up. No follow up planned at this time.
== END 2023-04-18 04:40 | disposition home or self-care (01) ==
PROVIDERS: PCP Nurse Practitioner; Visit Provider Dietitian, Registered
DX: K52.831 Collagenous colitis (principal); R14.0 Abdominal distension (gaseous); Z71.3 Dietary counseling and surveillance
CPT/HCPCS: 97802

== ENCOUNTER 2023-06-14 13:24 | Outpatient (CLI) | payer BC, SELFPAY ==
[2023-06-14 13:52] LABS: TSH 1.14 uIU/mL (0.36-3.74)
[2023-06-15 11:30] LABS: IgA 215 mg/dL (85-499)
[2023-06-16 13:04] LABS: Tissue Transglutaminase IgA <1.2 U/mL (<4.0)
== END 2023-06-14 13:25 | disposition home or self-care (01) ==
LOC: LBO 13:25
PROVIDERS: PCP Nurse Practitioner; Visit Provider Nurse Practitioner Adult Health
DX: K52.831 Collagenous colitis (principal)
CPT/HCPCS: 36415; 82784; 84443

== ENCOUNTER 2023-09-08 12:10 | Outpatient (REF) | payer BC, SELFPAY ==
--- NOTE | 2023-09-08 10:50 | SKI_PTH ---
PATIENT: Ilana Lund LOC: [facility] U#:[id number] AGE/SX: 63/F ROOM: RE09/08/[address]: Maryan Martinez : 1960 BED: DIS: 09/08/2023 SPEC #: [id number] RECD: 09/08/23 18:05 STATUS: FELIPE REBenja #: [id number] DANICA: 09/08/23 10:[address]: Maryan Martinez DEPT: Surgical Specimen RECD BY: Leti Dunn ENTERED: 09/08/23 18:05 SP TYPE: EZE PALMER DR: Camelia Crockett APRN Tissues: 1 - SKIN BIOPSY(SHAVE/PUNCH) Procedures: SKIN LEVEL 4 Comments: [id number]
== END 2023-09-08 12:11 | disposition home or self-care (01) ==
LOC: LBN 12:10
PROVIDERS: PCP Nurse Practitioner; Visit Provider Registered Nurse Maternal Newborn
DX: L98.9 Disorder of the skin and subcutaneous tissue, unspecified (principal)
CPT/HCPCS: 88305

== ENCOUNTER → 2023-10-27 00:07 | Outpatient (CLI) | payer BC, SELFPAY ==
--- NOTE | 2023-10-27 | DI.MAMMO_ITS ---
Exam(s) MAMMO SCREENING EXAM: MAMMO SCREENING CLINICAL HISTORY: SCREENING, Z12.39 TECHNIQUE: Mammograms were interpreted according to the usual protocol including computer analysis w [employer] CAD system, tomosynthesis and C-view imaging. COMPARISON: 2013 through 2021 FINDINGS: The breasts are composed of heterogeneously dense fibroglandular densities, Breast Density category C . No suspicious masses or suspicious microcalcifications are seen. No skin thickening or abnormal axillary lymph nodes are seen. There has been no significant change from prior exams. IMPRESSION: BI-RADS Category 1, Negative mammogram. Yearly screening mammography is recommended. Breast Density Category C, heterogeneously Dense. The mammogram demonstrates the patient's breast tissue is dense. Dense breast tissue is very common a nd is not abnormal but dense breast tissue can make it harder to find cancer on a mammogram. Also, de nse breast tissue may increase breast cancer risk. This information about the result of the mammogram report was provided to the patient to raise their awareness. Use this report when you speak with the patient about their risks for breast cancer, which includes their family history. At that time, you may recommend additional screening tests (Ultrasound or MRI) as they might be useful based on their r isk. A negative radiographic report should not delay biopsy if a dominant or clinically suspicious mass is present. Up to ten percent of cancers are not identified on mammography. A negative report may reinforce clinical impression. Adenosis and dense breasts may obscure an underlying neoplasm. False positive reports average 6 to 10%.
== END ==
PROVIDERS: PCP Nurse Practitioner; Visit Provider Obstetrics & Gynecology
DX: Z12.31 Encounter for screening mammogram for malignant neoplasm of breast (principal)
CPT/HCPCS: 77063; 77067

== ENCOUNTER → 2024-02-22 09:17 | Outpatient (CLI) | payer BC, SELFPAY ==
--- NOTE | 2024-02-22 10:08 | DI.RAD_ITS ---
Exam(s) XR LUMBAR SPINE COMPLETE EXAM: XR LUMBAR SPINE COMPLETE CLINICAL HISTORY: pain M25.551 PAIN RT HIP M54.50 LOW BACK PAIN. TECHNIQUE: 2D digital imaging was performed of the lumbar spine. Five images were obtained. AP, la teral, right oblique, left oblique and L5-S1 spot views were obtained. COMPARISON: No exams were available for comparison FINDINGS: BONES: No fracture or destructive lesion. There in small endplate osteophytes seen from L2-3 through L4-L5. Degenerative changes of the facets are seen at L5-S1. DISKS: There is mild narrowing at the L4-5 disc and L3-4 disc spaces. ALIGNMENT: Lumbar spinal alignment is within normal limits. No spondylolysis or spondylolisthesis. SOFT TISSUE: Normal. IMPRESSION: Mild degenerative changes seen in the lumbar spine. DATA REPOSITORY: RADIATION DOSE DELIVERED:
--- NOTE | 2024-02-22 10:08 | DI.RAD_ITS ---
Exam(s) XR HIP RT COMPLETE AP PELVIS EXAM: XR HIP RT COMPLETE AP PELVIS CLINICAL HISTORY: pain M25.551 PAIN RT HIP M54.50 LOW BACK PAIN. TECHNIQUE: 2D digital imaging was performed of the right hip. Two images were obtained. AP pelvis a nd lateral right hip views were obtained. COMPARISON: No exams were available for comparison FINDINGS: BONES: No acute fracture is present. No bony destructive lesion is seen. JOINTS: No dislocation present. Moderate degenerative changes are seen in the right hip with joint sp jared narrowing and osteophytes at the acetabulum and the femoral head. Subchondral cysts are seen in the femoral head. Bony productive changes are also seen at the greater trochanter. SOFT TISSUE: Normal. IMPRESSION: Moderate degenerative changes in the right hip. DATA REPOSITORY: RADIATION DOSE DELIVERED:
== END ==
PROVIDERS: PCP Nurse Practitioner; Visit Provider Nurse Practitioner
DX: M51.36 Other intervertebral disc degeneration, lumbar region (principal); M16.11 Unilateral primary osteoarthritis, right hip
CPT/HCPCS: 72110; 73502

== ENCOUNTER → 2024-06-05 00:58 | Outpatient (CLI) | payer BC, SELFPAY ==
--- NOTE | 2024-06-05 07:30 | DI.US_ITS ---
Exam(s) US NEEDLE LOCAL OTHER WO RAD EXAM: US NEEDLE LOCAL OTHER WO RAD CLINICAL HISTORY: TR5 nodule, left side,ultrasound guided bx,e04.1. COMPARISON: US US THYROID from 03/05/2024 TECHNIQUE: Ultrasound guidance was provided during performance left thyroid lobe nodule FNA performe d by Dr. Ward. FINDINGS: Submitted images and cine acquisitions reveal the FNA needle within the targeted nodule in the left l obe. IMPRESSION: As above. DATA REPOSITORY:
--- NOTE | 2024-06-05 11:45 | PAPNONF_PTH ---
PATIENT: Ilana Lund LOC: [facility] U#:[id number] AGE/SX: 65/F ROOM: RE06/05/[address]: Maryan Martinez : 1960 BED: DIS: SPEC #: [id number] RECD: 06/05/24 12:45 STATUS: FELIPE REBenja #: [id number] DANICA: 06/05/24 11:[address]: Maryan Martinez DEPT: [facility] [place] Cytology RECD BY: Anabela Canales ENTERED: 06/05/24 12:47 SP TYPE: JOSSUE PALMER DR: Camelia Crockett APRN Tissues: 1 - BODY FLUID CYTO-FINE NEEDLE ASPIRATE-[facility] Procedures: BODY FLUID CYTO-FINE NEEDLE ASPIRATE-[facility] Comments: [id number] (PATH FNA CONSULT) (REFRIGERATED)
--- NOTE | 2024-06-05 11:58 | W.PROCNOTE ---
Date of service: 06/05/24 Time of Service: 11:58 Procedure Note Date of procedure: 06/05/24 Procedure: Ultrasound-guided FNA, left thyroid nodule, pathology present Surgeon/Proceduralist/Physician: Ryan Ward Procedure Indications: Patient with a left-sided TR 5 1.1 cm thyroid nodule meeting criteria for biopsy. Options were explained to the patient regarding further management. Risks including bleeding, infection, failure to obtain an answer, and need for further procedures were discussed with the patient. Consent was filled out for ultrasound-guided FNA. The below was then performed. Procedure Description: The patient was prepped and draped in appropriate fashion. Ultrasound probe was used to localize the left-sided thyroid nodule, and then 1% lidocaine with 1/100,000 epinephrine was injected in the skin, subcutaneous tissues, and soft tissues leading up to the left thyroid nodule. A 25-gauge needle was then passed through the skin and into the thyroid nodule under direct visualization using the ultrasound. 2 passes were needed to obtain cellular adequacy. Cellular adequacy was verified by pathology. The patient declined Afirma draws. After ensuring adequate hemostasis, a Band-Aid was placed upon the entrance site and the patient was allowed to sit, stand, and then ambulate. She will remove the bandage tonight and not replace it. She may use Tylenol for any discomfort. She is to call with any concerns. She will call if she does not hear from Maryan with regard to pathology results by next Tuesday. She had no further questions. She was comfortable with the plan.
== END ==
PROVIDERS: PCP Nurse Practitioner; Visit Provider Registered Nurse Maternal Newborn
DX: E04.1 Nontoxic single thyroid nodule (principal)
CPT/HCPCS: 10005; 76942; 88104

== ENCOUNTER 2024-07-18 12:18 | Outpatient (CLI) | payer BC, SELFPAY ==
[2024-07-18 13:03] LABS: ESR 2 mm/hr (0-30)
[2024-07-18 13:30] LABS: C-Reactive Protein < 0.50 mg/dL (<or=0.5)
[2024-07-19 19:15] LABS: Rheumatoid Factor <8.6 IU/mL (<12.0)
[2024-07-20 09:31] LABS: Cyclic Citrullinated Peptide <2.5 U/mL (<5.0)
[2024-07-20 10:35] LABS: Lyme Ab w Rflx to Lyme Confirm Negative (Negative)
[2024-07-20 13:54] LABS: ANA Interpretation Positive (Negative); ANA Titer Pattern 1:80 Homogeneous
[2024-07-22 19:15] LABS: Anaplasma phagocytophilum Negative (Negative); B. miyamotoi PCR Negative (Negative); Babesia divergens/MO-1 Negative (Negative); Babesia duncani Negative (Negative); Babesia microti Negative (Negative); Ehrlichia chaffeensis Negative (Negative); Ehrlichia ewingii/canis Negative (Negative); Ehrlichia muris eauclairensis Negative (Negative)
== END 2024-07-18 12:19 | disposition home or self-care (01) ==
LOC: LBO 12:20
PROVIDERS: PCP Nurse Practitioner; Visit Provider Nurse Practitioner
DX: M25.50 Pain in unspecified joint (principal); R53.83 Other fatigue; M79.10 Myalgia, unspecified site
CPT/HCPCS: 36415; 85652; 86200; 87798; 86038; 86140; 86431; 86618

== ENCOUNTER 2024-09-10 01:41 | Outpatient (CLI) | payer BC, SELFPAY ==
--- NOTE | 2024-09-10 07:30 | DI.MRI_ITS ---
Exam(s) MR LUMBAR SPINE WO EXAM: MR LUMBAR SPINE WO CLINICAL HISTORY: radicular LLE pain,RADICULOPATHY DUE TO INTERVERTEBRAL DISC DISORDER. TECHNIQUE: Multiplanar multisequence MRI of the Lumbar spine was performed. COMPARISON: CR XR LUMBAR SPINE COMPLETE from 02/22/2024 FINDINGS: Bones: The last intervertebral disc space is designated the L5/S1 level for the numbering purpose of this ex amination. The vertebral body heights are well maintained. Alignment: Unremarkable mild degenerative levoscoliosis. The marrow signal characteristics are unremarkable. Cord: The conus tip ends at the T12- L1 level. It is of normal size and signal intensity. T12-L1: No focal disc herniation is present. No central spinal canal stenosis.No neural foraminal st enosis. L1-2: No focal disc herniation is present. No central spinal canal stenosis.No neural foraminal sten osis. L2-3: No focal disc herniation is present. No central spinal canal stenosis.No neural foraminal [place] nosis. L3-4: Mild loss of disc height, eccentric toward the right. Small endplate osteophytes and mild disc bulging.No focal disc herniation is present. No central spinal canal stenosis.No neural foraminal stenosis. L4-5: Small endplate osteophytes and mild disc bulging, eccentric toward the right. No focal disc herniation is present. Mild facet degenerative changes. Mildly demented hypertrophy. No central sp inal canal stenosis.No neural foraminal stenosis. L5-S1: Mild disc bulging.No focal disc herniation is present. No central spinal canal stenosis.No n eural foraminal stenosis. The visualized SI joints and sacrum are unremarkable. Soft tissues: The paraspinal soft tissues are unremarkable. IMPRESSION: Mild degenerative disc changes at L3-4 through L5-S1. No evidence of significant spinal stenosis or neuroforaminal narrowing. DATA REPOSITORY:
== END 2024-09-10 02:01 ==
LOC: DI 01:41
PROVIDERS: PCP Nurse Practitioner; Visit Provider Nurse Practitioner
DX: M51.16 Intervertebral disc disorders with radiculopathy, lumbar region (principal); M25.552 Pain in left hip
CPT/HCPCS: 72148

== ENCOUNTER 2024-11-12 02:23 | Outpatient (CLI) | payer BC, SELFPAY ==
--- NOTE | 2024-11-12 12:00 | DI.MAMMO_ITS ---
Exam(s) MAMMO SCREENING EXAM: MAMMO SCREENING CLINICAL HISTORY: screening TECHNIQUE: Mammograms were interpreted according to the usual protocol including computer analysis w [employer] CAD system, tomosynthesis and C-view imaging. COMPARISON: 2016 through 2022 FINDINGS: The breasts are composed of heterogeneously dense fibroglandular densities, Breast Density category C . No suspicious masses or suspicious microcalcifications are seen. No skin thickening or abnormal axillary lymph nodes are seen. There has been no significant change from prior exams. IMPRESSION: BI-RADS Category 1, Negative mammogram. Yearly screening mammography is recommended. Breast Density Category C, heterogeneously Dense. The mammogram demonstrates the patient's breast tissue is dense. Dense breast tissue is very common a nd is not abnormal but dense breast tissue can make it harder to find cancer on a mammogram. Also, de nse breast tissue may increase breast cancer risk. This information about the result of the mammogram report was provided to the patient to raise their awareness. Use this report when you speak with the patient about their risks for breast cancer, which includes their family history. At that time, you may recommend additional screening tests (Ultrasound or MRI) as they might be useful based on their r isk. A negative radiographic report should not delay biopsy if a dominant or clinically suspicious mass is present. Up to ten percent of cancers are not identified on mammography. A negative report may reinforce clinical impression. Adenosis and dense breasts may obscure an underlying neoplasm. False positive reports average 6 to 10%.
== END 2024-11-12 02:43 ==
LOC: DI 02:23
PROVIDERS: PCP Nurse Practitioner; Visit Provider Obstetrics & Gynecology
DX: Z12.31 Encounter for screening mammogram for malignant neoplasm of breast (principal); R92.333 Mammographic heterogeneous density, bilateral breasts
CPT/HCPCS: 77063; 77067

== ENCOUNTER 2025-04-12 11:09 | Outpatient (REF) | payer BC, SELFPAY ==
--- NOTE | 2025-04-12 09:00 | ENDOMET_PTH ---
PATIENT: Ilana Lund LOC: [facility] U#:[id number] AGE/SX: 64/F ROOM: RE04/12/[address]: Coco Varela DO : 1960 BED: DIS: 04/12/2025 SPEC #: [id number] RECD: 04/12/25 12:47 STATUS: SOUMaile REQ #: [id number] DANICA: 04/12/25 09:[address]: Coco Varela DEPT: Surgical Specimen RECD BY: Leti Dunn ENTERED: 04/12/25 12:47 SP TYPE: Endomet OTHR DR: Camelia Crockett APRN Tissues: 1 - ENDOMETRIUM BX/JODY Procedures: GROSS AND MICRO LEVEL 4 Comments: [id number]
== END 2025-04-12 11:10 | disposition home or self-care (01) ==
LOC: LBN 11:09
PROVIDERS: PCP Nurse Practitioner; Visit Provider Obstetrics & Gynecology
DX: N95.0 Postmenopausal bleeding (principal); N85.00 Endometrial hyperplasia, unspecified
CPT/HCPCS: 88305

== ENCOUNTER 2025-10-22 09:58 | Outpatient (REF) | payer BC, SELFPAY ==
--- NOTE | 2025-10-22 09:40 | PAPFT_PTH ---
PATIENT: Ilana Lund LOC: [facility] U#:[id number] AGE/SX: 65/F ROOM: RE10/22/[address]: Coco Varela DO : 1960 BED: DIS: 10/22/2025 SPEC #: [id number] RECD: 10/22/25 13:04 STATUS: FELIPE SCHMIDT #: [id number] DANICA: 10/22/25 09:[address]: Coco Varela DEPT: [facility] Cytology RECD BY: Leti Dunn ENTERED: 10/22/25 13:05 SP TYPE: PAPFT OTHR DR: Camelia Crockett APRN Tissues: 1 - CX/ENDOCX FOR PAP SMEARS Procedures: PAP THIN PREP/[facility] Screening HPV DNA PROBE Comments: [id number] (HPV 16 & 18/45)
== END 2025-10-22 09:59 | disposition home or self-care (01) ==
LOC: LBN 09:58
PROVIDERS: PCP Nurse Practitioner; Visit Provider Obstetrics & Gynecology
DX: Z12.4 Encounter for screening for malignant neoplasm of cervix (principal)
CPT/HCPCS: 88142; 87624